=== PATIENT | male | born 1980 | race Caucasian/White ===

== ENCOUNTER 2021-05-04 13:51 | Emergency (ER) | payer OTHER, SELFPAY ==
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
[2021-05-04 14:57] VITALS: BP 156/105; PULSE 89; RESP 16; TEMP 36.7; O2SAT 97; BMI 34.4
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
[2021-05-04] MEDS: Ibuprofen 800 MG TABLET PO (15:36)
== END 2021-05-04 15:45 | disposition home or self-care (01) ==
PROVIDERS: Emergency Provider Internal Medicine
DX: S93.402A Sprain of unspecified ligament of left ankle, initial encounter (principal); V43.52XA Car driver injured in collision with other type car in traffic accident, initial encounter; I10 Essential (primary) hypertension; Y93.89 Activity, other specified; Y92.410 Unspecified street and highway as the place of occurrence of the external cause; Y99.9 Unspecified external cause status; Z91.14 Patient's other noncompliance with medication regimen
CPT/HCPCS: 73610; 99283

== ENCOUNTER 2022-10-23 12:42 | Inpatient (IN) | payer OTHER, SELFPAY ==
--- NOTE | ~2022-10-23 | CT_ITS ---
EXAMINATION: CT Gi Bleed Abd Pel Wo/w Ivcon CLINICAL INFORMATION: Reason for Exam abd pain, gi bleeding . COMPARISON: No pertinent prior studies are available for comparison. TECHNIQUE: Multidetector volumetric imaging was performed from the superior aspect of the liver through the pubic symphysis before and after the administration of 85 mL Omnipaque 350 during his contrast material. Postcontrast images were obtained at a 2 minute delayed phase. Sagittal and coronal reformatted images were obtained on the technologist's workstation. This CT examination was performed using dose optimization techniques as appropriate, variously including the following: *Automated exposure control *Adjustment of mA and/or kV according to patient size (this includes techniques or standardized protocols for targeted exams where dose is matched to indication/reason for exam; i.e. extremities or head) *Use of iterative reconstruction technique DLP: 2327 mGy-cm. FINDINGS: LUNG BASES: Mild pleural parenchymal scarring at the right lung base. No consolidation. LIVER, GALLBLADDER, BILIARY TREE: The liver is enlarged (26 cm craniocaudal) with diffuse hypoattenuation of the parenchyma as well as heterogeneous enhancement and subtle contour nodularity. No focal lesions are identified. No biliary ductal dilatation. The gallbladder is unremarkable with no evidence of radiopaque gallstones, gallbladder wall thickening, or obvious pericholecystic inflammatory changes. PANCREAS: There is mild retroperitoneal fat stranding, though this is not isolated to the pancreas, extending distally into the pelvis. Pancreas is normal in size and attenuation without ductal dilatation or calcification. SPLEEN: Enlarged, measuring 15 cm AP. ADRENAL GLANDS: Normal. KIDNEYS AND URETERS: The kidneys are normal in size, shape, and attenuation. No hydronephrosis, hydroureter, or calculi seen. No perinephric stranding. BLADDER: Thick-walled, though emptying. No calcifications. GASTROINTESTINAL TRACT: A small amount of dense intraluminal material is present within the stomach on the initial noncontrast study which somewhat limits sensitivity of the study for upper GI bleeds. Stomach, small bowel, and colon are normal in caliber. No sites of active GI bleeding identified on these images. There is mild wall thickening at the ascending colon with surrounding fat stranding, potentially due to colitis or portal hypertension colopathy. There is a small volume of intraperitoneal free fluid both in the perihepatic location and within the pelvis. No intraperitoneal free air. ABDOMINAL WALL: No significant hernia is appreciated. LYMPHOVASCULAR STRUCTURES: Multiple prominent, subcentimeter reactive nodes are identified in the upper abdomen, measuring up to 1 cm in diameter, likely reactive in nature. Vasculature appears patent. No evidence of thrombosis. No aneurysmal dilatation.. PELVIC VISCERA: The prostate and seminal vesicles are unremarkable. OSSEOUS STRUCTURES: No acute osseous findings in the abdomen and pelvis. Mild osteoarthritis in the hips. CT/CT gi bleed abd pel wo/w IVcon IMPRESSION: 1. No sites of active gastrointestinal bleeding are identified on this study. 2. Hepatosplenomegaly with hepatic steatosis. Heterogeneous enhancement of the hepatic parenchyma as well as subtle contour nodularity may be due to a degree of steatohepatitis or early cirrhosis. 3. Mild wall thickening at the ascending colon with surrounding fat stranding, potentially due to mild portal hypertension colopathy or colitis. 4. Small volume of intraperitoneal ascites. 5. Retroperitoneal fat stranding in the upper abdomen extending into the pelvis. This is likely related to the ascites and hepatic abnormalities, though pancreatitis cannot be completely excluded. Recommend correlation with serum amylase and lipase which would be more sensitive and specific.
--- NOTE | ~2022-10-23 | US_ITS ---
EXAMINATION: US ABDOMEN LIMITED CLINICAL INFORMATION: Abdominal pain. COMPARISON: Chest CT scan dated 10/23/2022. TECHNIQUE: Real-time imaging of the right upper quadrant abdominal viscera. US/US abdomen limited FINDINGS/IMPRESSION: Trace perihepatic fluid is seen in the right upper quadrant. No other significant free fluid. Hepatic steatosis.
--- NOTE | ~2022-10-23 | CT_ITS ---
EXAMINATION: CT CHEST WITHOUT CONTRAST CLINICAL INFORMATION: Hypoxic COMPARISON: Radiographs from the same date TECHNIQUE: Multidetector volumetric CT imaging of the chest was done. Axial MIP volume rendering provided. Sagittal and coronal reformatted images were obtained. This CT examination was performed using dose optimization techniques as appropriate, variously including the following: *Automated exposure control *Adjustment of mA and/or kV according to patient size (this includes techniques or standardized protocols for targeted exams where dose is matched to indication/reason for exam; i.e. extremities or head) *Use of iterative reconstruction technique DLP: 389 mGy-cm FINDINGS: RN CONCURRENT REVIEW: Clear LUNGS: Foci of linear platelike subsegmental atelectasis or pleural parenchymal scarring are evident in the lower lobes bilaterally. No airspace consolidation. A small calcified granuloma is evident in the right lower lobe near the major fissure. No suspicious pulmonary nodules. Central airways are clear. No bronchiectasis. MEDIASTINUM: Thyroid gland is normal. No mediastinal or hilar adenopathy. Heart is normal in size. No pericardial effusion. CORONARY ARTERY CALCIFICATION: None visualized on this study. PLEURA: There is no pleural effusion. No pleural mass or thickening. AXILLA: No lymphadenopathy. UPPER ABDOMEN: Diffuse hypoattenuation of the hepatic parenchyma is consistent with steatosis. No acute abnormalities are identified in the imaged portion of the upper abdomen. OSSEOUS STRUCTURES: No acute osseous findings. Thoracic spine appears relatively well-preserved. No appreciable rib fractures. CT/CT chest wo IV con IMPRESSION: 1. No acute abnormalities are identified in the chest. 2. Hepatic steatosis. Fleischner guidelines were followed.
--- NOTE | ~2022-10-23 | XR_ITS ---
EXAMINATION: XR CHEST CLINICAL INFORMATION: Shortness of breath COMPARISON: None TECHNIQUE: Frontal view of the chest was obtained. FINDINGS: The lungs are clear with no focal consolidation. No evidence of pneumothorax, pulmonary edema, or pleural effusions. The cardiomediastinal silhouette is unremarkable. No acute osseous findings. XR/XR chest 1V IMPRESSION: No acute cardiopulmonary findings.
[2022-10-23 12:52] VITALS: BP 133/86; PULSE 108; RESP 15; TEMP 36.6; O2SAT 94; BMI 32.2
--- NOTE | 2022-10-23 12:52 | ED_ITS ---
HPI - GI Bleed General Chief complaint: GI Bleed <LIAT Liao Last Filed: 10/23/22 12:55> Stated complaint: blood in stool x14 days <Jewell Schwab NP - Last Filed: 10/23/22 12:55> Time Seen by Provider: 10/23/22 16:27 <Jewell Schwab NP - Last Filed: 10/23/22 12:55> Source: patient <Giovanna Chambers NP - Last Filed: 10/24/22 00:07> Mode of arrival: ambulatory <LIAT Patel Last Filed: 10/24/22 00:07> Limitations: no limitations <LIAT Patel Last Filed: 10/24/22 00:07> History of Present Illness HPI Narrative: 41-year-old male presents with abdominal pain, and 2 weeks of bloody stools. He does drink alcohol on daily basis, has sleep apnea, is morbidly obese, and has a history of cirrhosis. <LIAT Patel Last Filed: 10/24/22 00:07> Onset (ago): week(s) (2) <Giovanna Chambers NP - Last Filed: 10/24/22 00:07> Pain Consistency: intermittent <LIAT Patel Last Filed: 10/24/22 00:07> Severity: moderate <LIAT Patel Last Filed: 10/24/22 00:07> Relieving factors: none <LIAT Patel Last Filed: 10/24/22 00:07> Context: liver disease and alcohol abuse <LIAT Patel Last Filed: 10/24/22 00:07> Associated symptoms: abdominal pain and nausea <LIAT Patel Last Filed: 10/24/22 00:07> Treatments Prior to Arrival: none <LIAT Patel Last Filed: 10/24/22 00:07> Related Data Home medications: Home Medications Medication Instructions Recorded Confirmed albuterol sulfate 90 mcg/actuation 2 puff inhalation Q4-6H PRN 10/23/22 10/23/22 aerosol inhaler (ProAir HFA) Shortness Of Breath amlodipine 5 mg tablet 5 mg PO DAILY 10/23/22 10/23/22 folic acid 1 mg tablet 1 mg PO DAILY 10/23/22 10/23/22 magnesium 250 mg tablet 250 mg PO DAILY 10/23/22 10/23/22 multivitamin 1 tab PO DAILY 10/23/22 10/23/22 <Jewell Schwab NP - Last Filed: 10/23/22 12:55> Allergies/Adverse reactions: Allergies Allergy/AdvReac Type Severity Reaction Status Date / Time No Known Allergies Allergy Verified 05/04/21 14:57 <Jewell Schwab NP - Last Filed: 10/23/22 12:55> Review of Systems Review of Systems: Constitutional: No Fever, No Chills Cardiovascular: No Chest Pain, No SOB Respiratory: No Cough, No Dyspnea Gastrointestinal: Positive Nausea, No Vomiting, positive bloody Diarrhea, pop abdominal Pain Genitourinary: No Dysuria, No Hematuria Musculoskeletal: No joint pain, No Myalgias, No Joint Swelling Skin: No Skin lacerations, No rash Neuro: No Weakness, No Numbness, No Dizziness, No Headache <Giovanna Cahmbers NP - Last Filed: 10/24/22 00:07> Yes all other systems are reviewed and are negative <Giovanna Chambers NP - Last Filed: 10/24/22 00:07> PMFSH Past Medical History Attestation statement: The following information was validated with the patient. <Giovanna Chambers NP - Last Filed: 10/24/22 00:07> Source: old records reviewed <Giovanna Chambers NP - Last Filed: 10/24/22 00:07> Medical History: Medical History Alcohol abuse Asthma HTN (hypertension) <Jewell Schwab NP - Last Filed: 10/23/22 12:55> Surgical History: Surgical History No pertinent past surgical history <Jewell Schwab NP - Last Filed: 10/23/22 12:55> Social History Social History: Social History Alcohol intake: current Alcohol intake frequency: 3 or more drinks per day Alcohol type: beer, wine and hard liquor Patient Tobacco Use Status: Former Tobacco user Smoked in Last 30 Days: No Use of substances other than those prescribed or required for medical reasons: Yes Substance Use Type: Marijuana Advance Directives: No Advance Directives Information Provided: No service: No Current occupational status: employed <Jewell Schwab NP - Last Filed: 10/23/22 12:55> Physical Exam Vital Signs: Vital Signs: Last Vital Signs Temp 98.3 F 10/23/22 20:53 Pulse 103 H 10/23/22 20:53 Resp 14 10/23/22 20:53 BP 123/69 10/23/22 20:53 Pulse Ox 83 L 10/23/22 20:53 O2 Del Method 10/23/22 20:53 BMI result Body Mass Index 32.2 <Jewell Schwab NP - Last Filed: 10/23/22 12:55> Vital Signs: Last Vital Signs Temp 98.3 F 10/23/22 20:53 Pulse 103 H 10/23/22 20:53 Resp 14 10/23/22 20:53 BP 123/69 10/23/22 20:53 Pulse Ox 83 L 10/23/22 20:53 O2 Del Method 10/23/22 20:53 BMI result Body Mass Index 32.2 <Giovanna Chambers NP - Last Filed: 10/24/22 00:07> Appearance: Alert. Oriented X3. Moderate distress. Eyes: Pupils equal, round and reactive to light. Sclera nonicteric. No nystagmus. ENT: Pharynx normal. Neck: Normal inspection. Neck supple. CVS: Normal heart rate and rhythm. Pulses normal. Respiratory: No respiratory distress. Breath sounds normal. Abdomen: Soft and diffusely tender, distended. Skin: Skin warm and dry. Normal skin color. Normal skin turgor. Extremities: Gait balanced and coordinated. Neuro: No motor deficit. No sensory deficit. Cranial nerves 2-12 intact. <Giovanna Chambers NP - Last Filed: 10/24/22 00:07> Course Course Course Narrative: This is rapid medical exam. deferred additional HPI, ROS, PE to primary provider. 41 yo male with history of HTN, asthma here with 2 weeks of BRB per rectum, lower abdominal discomfort. No AC therapy use. +drinks daily alcohol. Will obtain labs. VSS <Jewell Schwab NP - Last Filed: 10/23/22 12:55> This is rapid medical exam. deferred additional HPI, ROS, PE to primary provider. 41 yo male with history of HTN, asthma here with 2 weeks of BRB per rectum, lower abdominal discomfort. No AC therapy use. +drinks daily alcohol. Will obtain labs. VSS 41-year-old male presents with abdominal pain and distention, and intermittent bloody diarrhea over the past 2 weeks. Patient drinks alcohol on a daily basis, and has cirrhosis. Will order CT scan GI study, and labs. CT scan indicates no GI bleeding, wall thickening at the ascending colon with surrounding fat stranding potentially due to colitis or portal hypertensive colopathy. Small volume of intraperitoneal free fluid consistent with ascites. Retroperitoneal fat stranding in the upper abdomen extending into the pelvis, could possibly be pancreatitis or related to hepatic abnormalities and ascites. Order for Zosyn, and fluids. COVID influenza RSV are negative. Troponins are negative. Low likelihood of ACS. 20:00 discussion with hospitalist, plan of care is to admit for alcohol withdrawals, colitis, suspicion of pancreatitis. 20:16 paracentesis completed by this MOLDING ENGINEER. 30 mL of sanguinous peritoneal fluid obtained. Patient tolerated procedure well. <Giovanna Chambers NP - Last Filed: 10/24/22 00:07> Consultations Consultation #1: Emilia <Giovanna Chambers NP - Last Filed: 10/24/22 00:07> Medications Administered Generic Name Dose Route Start Last Admin Trade Name Freq PRN Reason Stop Dose Admin Ceftriaxone Sodium 1 gm/ 50 mls @ 100 mls/hr 10/23/22 21:00 10/23/22 21:51 Sodium Chloride IV Infused Q24H YUMIKO Infusion Metronidazole 500 mg in 100 mls @ 100 mls/hr 10/23/22 22:00 10/23/22 23:16 Flagyl IV Infused Q8H YUMIKO Infusion Lactated Ringer's 1,000 mls @ 125 mls/hr 10/23/22 22:15 10/23/22 23:14 Lr IVCONT 125 mls/hr .Q8H YUMIKO Administration Sodium Chloride 3 ml 10/24/22 00:00 10/23/22 23:16 0.9 % Sodium Chloride Flush 3 Ml Syringe IVFLUSH 3 ml QSHIFT YUMIKO Administration Discontinued Medications Generic Name Dose Route Start Last Admin Trade Name Adrian PRN Reason Stop Dose Admin Hydromorphone HCl 1 mg 10/23/22 19:58 10/23/22 20:26 Hydromorphone Hcl 1 Mg/Ml Syringe IVPUSH 10/23/22 19:59 1 mg ONCE ONE Administration Protocol Piperacillin Sod/Tazobactam 50 mls @ 100 mls/hr 10/23/22 19:58 10/23/22 21:22 Sod 3.375 gm/ Sodium Chloride IV 10/23/22 20:27 Infused ONCE ONE Infusion Iohexol 100 ml 10/23/22 17:34 10/23/22 17:35 Iohexol 350 Mg/Ml 100 Ml Infus..Btl IV 10/23/22 17:35 85 ml ONCE ONE Administration Lidocaine HCl 5 ml 10/23/22 19:58 10/23/22 20:26 Lidocaine Hcl 2 % Mpf 5 Ml Vial SUBCUT 10/23/22 19:59 5 ml ONCE ONE Administration Phenobarbital Sodium 292 mg 10/23/22 21:00 10/23/22 21:14 Phenobarbital Sodium 130 Mg/Ml Im Once IM 10/23/22 21:01 292 mg ONCE ONE Administration <Jewell Schwab NP - Last Filed: 10/23/22 12:55> Medications Administered Generic Name Dose Route Start Last Admin Trade Name Adrian PRN Reason Stop Dose Admin Ceftriaxone Sodium 1 gm/ 50 mls @ 100 mls/hr 10/23/22 21:00 10/23/22 21:51 Sodium Chloride IV Infused Q24H YUMIKO Infusion Metronidazole 500 mg in 100 mls @ 100 mls/hr 10/23/22 22:00 10/23/22 23:16 Flagyl IV Infused Q8H YUMIKO Infusion Lactated Ringer's 1,000 mls @ 125 mls/hr 10/23/22 22:15 10/23/22 23:14 Lr IVCONT 125 mls/hr .Q8H YUMIKO Administration Sodium Chloride 3 ml 10/24/22 00:00 10/23/22 23:16 0.9 % Sodium Chloride Flush 3 Ml Syringe IVFLUSH 3 ml QSHIFT YUMIKO Administration Discontinued Medications Generic Name Dose Route Start Last Admin Trade Name Adrian PRN Reason Stop Dose Admin Hydromorphone HCl 1 mg 10/23/22 19:58 10/23/22 20:26 Hydromorphone Hcl 1 Mg/Ml Syringe IVPUSH 10/23/22 19:59 1 mg ONCE ONE Administration Protocol Piperacillin Sod/Tazobactam 50 mls @ 100 mls/hr 10/23/22 19:58 10/23/22 21:22 Sod 3.375 gm/ Sodium Chloride IV 10/23/22 20:27 Infused ONCE ONE Infusion Iohexol 100 ml 10/23/22 17:34 10/23/22 17:35 Iohexol 350 Mg/Ml 100 Ml Infus..Btl IV 10/23/22 17:35 85 ml ONCE ONE Administration Lidocaine HCl 5 ml 10/23/22 19:58 10/23/22 20:26 Lidocaine Hcl 2 % Mpf 5 Ml Vial SUBCUT 10/23/22 19:59 5 ml ONCE ONE Administration Phenobarbital Sodium 292 mg 10/23/22 21:00 10/23/22 21:14 Phenobarbital Sodium 130 Mg/Ml Im Once IM 10/23/22 21:01 292 mg ONCE ONE Administration <Giovanna Chambers NP - Last Filed: 10/24/22 00:07> Medical Decision Making Differential Diagnosis Differential Diagnoses: The differential diagnosis associated with the presentation includes <Giovanna Chambers NP - Last Filed: 10/24/22 00:07> ETOH withdrawal, SBP, hepatitis, pancreatitis, colitis <Giovanna Chambers NP - Last Filed: 10/24/22 00:07> Admission/Observation Consideration of admission/observation: Escalation of care including admission/observation considered <Giovanna Chambers NP - Last Filed: 10/24/22 00:07> Patient requires admission <LIAT Patel Last Filed: 10/24/22 00:07> Consult Healthcare Provider Management of the patient was discussed with: Hospitalist <Giovanna Chambers NP - Last Filed: 10/24/22 00:07> Lab Data MDM Lab Attestation statement: I reviewed the patient's lab results. <Giovanna Chambers NP - Last Filed: 10/24/22 00:07> Result Diagrams: 10/23/22 13:28 10/23/22 13:28 <Jewell Schwab NP - Last Filed: 10/23/22 12:55> Labs: Lab Results 10/23/22 10/23/22 10/23/22 Range/Units 13:28 13:28 13:28 WBC 11.8 H (4.8-10.8) X10*3/uL RBC 3.44 L (4.60-5.80) X10*6/uL Hgb 13.2 L (14.0-18.0) g/dl Hct 37.8 L (42.0-52.0) % MCV 109.9 H (80.0-98.0) fL MCH 38.4 H (27.0-33.0) pg MCHC 34.9 (31.0-36.0) g/dl RDW 15.0 (11.0-16.0) % Plt Count 157 L (160-400) X10*3/uL MPV 9.2 L (9.4-12.4) fL Immature Gran % (Auto) 0.4 (0.0-0.4) % Neut % (Auto) 75.6 H (45-73) % Lymph % (Auto) 10.6 L (20-40) % [place] % (Auto) 12.4 H (2-11) % Eos % (Auto) 0.3 (0-4) % Baso % (Auto) 0.7 (0-2) % Lymph # (Auto) 1.3 (1.2-4.9) X10*3/uL [place] # (Auto) 1.5 H (0.1-1.2) X10*3/uL Eos # (Auto) 0.0 (0.0-0.4) X10*3/uL Baso # (Auto) 0.1 (0.0-0.2) X10*3/uL Abs Immat Gran (auto) 0.05 H (0.00-0.03) X10*3/uL Absolute Neuts (auto) 8.9 H (2.0-8.3) x10*3/uL Absolute Nucleated RBC 0.000 (0.0-0.012) X10*3/uL Nucleated RBC % (auto) 0.0 (0.0-0.2) /100WBC PT 15.1 H (10.0-13.1) SEC INR 1.3 H (0.9-1.1) Sodium 137 (135-145) mmol/L Potassium 3.3 (3.3-5.1) mmol/L Chloride 99 (96-108) mmol/L Carbon Dioxide 22 (22-29) mmol/L Anion Gap 19 (12-20) BUN 4 L (9-16) mg/dL Creatinine 0.59 (0.5-1.4) mg/dL Estim Creat Clear Calc 197.1 Estimated GFR > 60 Random Glucose 108 (60-115) mg/dL Calcium 7.8 L (8.4-10.2) mg/dL Magnesium (1.6-2.6) mg/dL Total Bilirubin 2.2 H (0.0-1.0) mg/dL Direct Bilirubin 1.2 H (0.0-0.5) mg/dL AST 234 H (5-37) U/L ALT 89 H (0-40) U/L Alkaline Phosphatase 199 H (39-117) U/L Troponin I High Sens (<3.5-35.0) ng/L Total Protein 7.0 (6.5-8.0) g/dL Albumin 3.4 L (3.5-5.0) g/dL Lipase 30 (8-78) U/L Urine Color Urine Appearance Urine pH (5.0-9.0) Ur Specific [place] (1.005-1.025) Urine Protein (Neg-Trace) mg/dL Urine Glucose (UA) (Negative) mg/dL Urine Ketones (Negative) mg/dL Urine Blood (Negative) Urine Nitrite (Negative) Ur Leukocyte Esterase (Negative) Urine RBC (0-2) /HPF Urine WBC (0-5) /HPF Ur Squamous Epith Cells (0-2) /HPF Urine Bacteria (None Seen) Hyaline Casts (0-2) /LPF Urine Opiates Screen (Not Detect) Urine Fentanyl Screen (Not Detect) Ur Barbiturates Screen (Not Detect) Ur Phencyclidine Scrn (Not Detect) Ur Amphetamines Screen (Not Detect) U Benzodiazepines Scrn (Not Detect) Urine Cocaine Screen (Not Detect) U Marijuana (THC) Screen (Not Detect) Ethyl Alcohol mg/dL Influenza Type A (PCR) (Negative) Influenza Type B (PCR) (Negative) RSV RNA Qual (PCR) (Negative) SARS-CoV-2 RNA (RT-PCR) (Negative) 10/23/22 10/23/22 10/23/22 Range/Units 17:00 17:04 17:04 WBC (4.8-10.8) X10*3/uL RBC (4.60-5.80) X10*6/uL Hgb (14.0-18.0) g/dl Hct (42.0-52.0) % MCV (80.0-98.0) fL MCH (27.0-33.0) pg MCHC (31.0-36.0) g/dl RDW (11.0-16.0) % Plt Count (160-400) X10*3/uL MPV (9.4-12.4) fL Immature Gran % (Auto) (0.0-0.4) % Neut % (Auto) (45-73) % Lymph % (Auto) (20-40) % [place] % (Auto) (2-11) % Eos % (Auto) (0-4) % Baso % (Auto) (0-2) % Lymph # (Auto) (1.2-4.9) X10*3/uL [place] # (Auto) (0.1-1.2) X10*3/uL Eos # (Auto) (0.0-0.4) X10*3/uL Baso # (Auto) (0.0-0.2) X10*3/uL Abs Immat Gran (auto) (0.00-0.03) X10*3/uL Absolute Neuts (auto) (2.0-8.3) x10*3/uL Absolute Nucleated RBC (0.0-0.012) X10*3/uL Nucleated RBC % (auto) (0.0-0.2) /100WBC PT (10.0-13.1) SEC INR (0.9-1.1) Sodium (135-145) mmol/L Potassium (3.3-5.1) mmol/L Chloride (96-108) mmol/L Carbon Dioxide (22-29) mmol/L Anion Gap (12-20) BUN (9-16) mg/dL Creatinine (0.5-1.4) mg/dL Estim Creat Clear Calc Estimated GFR Random Glucose (60-115) mg/dL Calcium (8.4-10.2) mg/dL Magnesium 1.7 (1.6-2.6) mg/dL Total Bilirubin (0.0-1.0) mg/dL Direct Bilirubin (0.0-0.5) mg/dL AST (5-37) U/L ALT (0-40) U/L Alkaline Phosphatase (39-117) U/L Troponin I High Sens < 3.5 (<3.5-35.0) ng/L Total Protein (6.5-8.0) g/dL Albumin (3.5-5.0) g/dL Lipase (8-78) U/L Urine Color Urine Appearance Urine pH (5.0-9.0) Ur Specific [place] (1.005-1.025) Urine Protein (Neg-Trace) mg/dL Urine Glucose (UA) (Negative) mg/dL Urine Ketones (Negative) mg/dL Urine Blood (Negative) Urine Nitrite (Negative) Ur Leukocyte Esterase (Negative) Urine RBC (0-2) /HPF Urine WBC (0-5) /HPF Ur Squamous Epith Cells (0-2) /HPF Urine Bacteria (None Seen) Hyaline Casts (0-2) /LPF Urine Opiates Screen (Not Detect) Urine Fentanyl Screen (Not Detect) Ur Barbiturates Screen (Not Detect) Ur Phencyclidine Scrn (Not Detect) Ur Amphetamines Screen (Not Detect) U Benzodiazepines Scrn (Not Detect) Urine Cocaine Screen (Not Detect) U Marijuana (THC) Screen (Not Detect) Ethyl Alcohol mg/dL Influenza Type A (PCR) NEGATIVE (Negative) Influenza Type B (PCR) NEGATIVE (Negative) RSV RNA Qual (PCR) NEGATIVE (Negative) SARS-CoV-2 RNA (RT-PCR) NEGATIVE (Negative) 10/23/22 10/23/22 10/23/22 Range/Units 17:04 17:28 17:28 WBC (4.8-10.8) X10*3/uL RBC (4.60-5.80) X10*6/uL Hgb (14.0-18.0) g/dl Hct (42.0-52.0) % MCV (80.0-98.0) fL MCH (27.0-33.0) pg MCHC (31.0-36.0) g/dl RDW (11.0-16.0) % Plt Count (160-400) X10*3/uL MPV (9.4-12.4) fL Immature Gran % (Auto) (0.0-0.4) % Neut % (Auto) (45-73) % Lymph % (Auto) (20-40) % [place] % (Auto) (2-11) % Eos % (Auto) (0-4) % Baso % (Auto) (0-2) % Lymph # (Auto) (1.2-4.9) X10*3/uL [place] # (Auto) (0.1-1.2) X10*3/uL Eos # (Auto) (0.0-0.4) X10*3/uL Baso # (Auto) (0.0-0.2) X10*3/uL Abs Immat Gran (auto) (0.00-0.03) X10*3/uL Absolute Neuts (auto) (2.0-8.3) x10*3/uL Absolute Nucleated RBC (0.0-0.012) X10*3/uL Nucleated RBC % (auto) (0.0-0.2) /100WBC PT (10.0-13.1) SEC INR (0.9-1.1) Sodium (135-145) mmol/L Potassium (3.3-5.1) mmol/L Chloride (96-108) mmol/L Carbon Dioxide (22-29) mmol/L Anion Gap (12-20) BUN (9-16) mg/dL Creatinine (0.5-1.4) mg/dL Estim Creat Clear Calc Estimated GFR Random Glucose (60-115) mg/dL Calcium (8.4-10.2) mg/dL Magnesium (1.6-2.6) mg/dL Total Bilirubin (0.0-1.0) mg/dL Direct Bilirubin (0.0-0.5) mg/dL AST (5-37) U/L ALT (0-40) U/L Alkaline Phosphatase (39-117) U/L Troponin I High Sens (<3.5-35.0) ng/L Total Protein (6.5-8.0) g/dL Albumin (3.5-5.0) g/dL Lipase (8-78) U/L Urine Color Dark Yellow Urine Appearance Clear Urine pH 6.5 (5.0-9.0) Ur Specific [place] 1.015 (1.005-1.025) Urine Protein Trace (Neg-Trace) mg/dL Urine Glucose (UA) Negative (Negative) mg/dL Urine Ketones Trace (Negative) mg/dL Urine Blood Negative (Negative) Urine Nitrite Negative (Negative) Ur Leukocyte Esterase Trace H (Negative) Urine RBC 0-2 (0-2) /HPF Urine WBC 0-5 (0-5) /HPF Ur Squamous Epith Cells 3-5 (0-2) /HPF Urine Bacteria None Seen (None Seen) Hyaline Casts 0-2 (0-2) /LPF Urine Opiates Screen Not Detected (Not Detect) Urine Fentanyl Screen Not Detected (Not Detect) Ur Barbiturates Screen Not Detected (Not Detect) Ur Phencyclidine Scrn Not Detected (Not Detect) Ur Amphetamines Screen Not Detected (Not Detect) U Benzodiazepines Scrn POSITIVE H (Not Detect) Urine Cocaine Screen Not Detected (Not Detect) U Marijuana (THC) Screen Not Detected (Not Detect) Ethyl Alcohol 260 mg/dL Influenza Type A (PCR) (Negative) Influenza Type B (PCR) (Negative) RSV RNA Qual (PCR) (Negative) SARS-CoV-2 RNA (RT-PCR) (Negative) <Jewell Schwab, MOLDING ENGINEER - Last Filed: 10/23/22 12:55> Lab Results 10/23/22 10/23/22 10/23/22 Range/Units 13:28 13:28 13:28 WBC 11.8 H (4.8-10.8) X10*3/uL RBC 3.44 L (4.60-5.80) X10*6/uL Hgb 13.2 L (14.0-18.0) g/dl Hct 37.8 L (42.0-52.0) % MCV 109.9 H (80.0-98.0) fL MCH 38.4 H (27.0-33.0) pg MCHC 34.9 (31.0-36.0) g/dl RDW 15.0 (11.0-16.0) % Plt Count 157 L (160-400) X10*3/uL MPV 9.2 L (9.4-12.4) fL Immature Gran % (Auto) 0.4 (0.0-0.4) % Neut % (Auto) 75.6 H (45-73) % Lymph % (Auto) 10.6 L (20-40) % [place] % (Auto) 12.4 H (2-11) % Eos % (Auto) 0.3 (0-4) % Baso % (Auto) 0.7 (0-2) % Lymph # (Auto) 1.3 (1.2-4.9) X10*3/uL [place] # (Auto) 1.5 H (0.1-1.2) X10*3/uL Eos # (Auto) 0.0 (0.0-0.4) X10*3/uL Baso # (Auto) 0.1 (0.0-0.2) X10*3/uL Abs Immat Gran (auto) 0.05 H (0.00-0.03) X10*3/uL Absolute Neuts (auto) 8.9 H (2.0-8.3) x10*3/uL Absolute Nucleated RBC 0.000 (0.0-0.012) X10*3/uL Nucleated RBC % (auto) 0.0 (0.0-0.2) /100WBC PT 15.1 H (10.0-13.1) SEC INR 1.3 H (0.9-1.1) Sodium 137 (135-145) mmol/L Potassium 3.3 (3.3-5.1) mmol/L Chloride 99 (96-108) mmol/L Carbon Dioxide 22 (22-29) mmol/L Anion Gap 19 (12-20) BUN 4 L (9-16) mg/dL Creatinine 0.59 (0.5-1.4) mg/dL Estim Creat Clear Calc 197.1 Estimated GFR > 60 Random Glucose 108 (60-115) mg/dL Calcium 7.8 L (8.4-10.2) mg/dL Magnesium (1.6-2.6) mg/dL Total Bilirubin 2.2 H (0.0-1.0) mg/dL Direct Bilirubin 1.2 H (0.0-0.5) mg/dL AST 234 H (5-37) U/L ALT 89 H (0-40) U/L Alkaline Phosphatase 199 H (39-117) U/L Troponin I High Sens (<3.5-35.0) ng/L Total Protein 7.0 (6.5-8.0) g/dL Albumin 3.4 L (3.5-5.0) g/dL Lipase 30 (8-78) U/L Urine Color Urine Appearance Urine pH (5.0-9.0) Ur Specific [place] (1.005-1.025) Urine Protein (Neg-Trace) mg/dL Urine Glucose (UA) (Negative) mg/dL Urine Ketones (Negative) mg/dL Urine Blood (Negative) Urine Nitrite (Negative) Ur Leukocyte Esterase (Negative) Urine RBC (0-2) /HPF Urine WBC (0-5) /HPF Ur Squamous Epith Cells (0-2) /HPF Urine Bacteria (None Seen) Hyaline Casts (0-2) /LPF Urine Opiates Screen (Not Detect) Urine Fentanyl Screen (Not Detect) Ur Barbiturates Screen (Not Detect) Ur Phencyclidine Scrn (Not Detect) Ur Amphetamines Screen (Not Detect) U Benzodiazepines Scrn (Not Detect) Urine Cocaine Screen (Not Detect) U Marijuana (THC) Screen (Not Detect) Ethyl Alcohol mg/dL Influenza Type A (PCR) (Negative) Influenza Type B (PCR) (Negative) RSV RNA Qual (PCR) (Negative) SARS-CoV-2 RNA (RT-PCR) (Negative) 10/23/22 10/23/22 10/23/22 Range/Units 17:00 17:04 17:04 WBC (4.8-10.8) X10*3/uL RBC (4.60-5.80) X10*6/uL Hgb (14.0-18.0) g/dl Hct (42.0-52.0) % MCV (80.0-98.0) fL MCH (27.0-33.0) pg MCHC (31.0-36.0) g/dl RDW (11.0-16.0) % Plt Count (160-400) X10*3/uL MPV (9.4-12.4) fL Immature Gran % (Auto) (0.0-0.4) % Neut % (Auto) (45-73) % Lymph % (Auto) (20-40) % [place] % (Auto) (2-11) % Eos % (Auto) (0-4) % Baso % (Auto) (0-2) % Lymph # (Auto) (1.2-4.9) X10*3/uL [place] # (Auto) (0.1-1.2) X10*3/uL Eos # (Auto) (0.0-0.4) X10*3/uL Baso # (Auto) (0.0-0.2) X10*3/uL Abs Immat Gran (auto) (0.00-0.03) X10*3/uL Absolute Neuts (auto) (2.0-8.3) x10*3/uL Absolute Nucleated RBC (0.0-0.012) X10*3/uL Nucleated RBC % (auto) (0.0-0.2) /100WBC PT (10.0-13.1) SEC INR (0.9-1.1) Sodium (135-145) mmol/L Potassium (3.3-5.1) mmol/L Chloride (96-108) mmol/L Carbon Dioxide (22-29) mmol/L Anion Gap (12-20) BUN (9-16) mg/dL Creatinine (0.5-1.4) mg/dL Estim Creat Clear Calc Estimated GFR Random Glucose (60-115) mg/dL Calcium (8.4-10.2) mg/dL Magnesium 1.7 (1.6-2.6) mg/dL Total Bilirubin (0.0-1.0) mg/dL Direct Bilirubin (0.0-0.5) mg/dL AST (5-37) U/L ALT (0-40) U/L Alkaline Phosphatase (39-117) U/L Troponin I High Sens < 3.5 (<3.5-35.0) ng/L Total Protein (6.5-8.0) g/dL Albumin (3.5-5.0) g/dL Lipase (8-78) U/L Urine Color Urine Appearance Urine pH (5.0-9.0) Ur Specific [place] (1.005-1.025) Urine Protein (Neg-Trace) mg/dL Urine Glucose (UA) (Negative) mg/dL Urine Ketones (Negative) mg/dL Urine Blood (Negative) Urine Nitrite (Negative) Ur Leukocyte Esterase (Negative) Urine RBC (0-2) /HPF Urine WBC (0-5) /HPF Ur Squamous Epith Cells (0-2) /HPF Urine Bacteria (None Seen) Hyaline Casts (0-2) /LPF Urine Opiates Screen (Not Detect) Urine Fentanyl Screen (Not Detect) Ur Barbiturates Screen (Not Detect) Ur Phencyclidine Scrn (Not Detect) Ur Amphetamines Screen (Not Detect) U Benzodiazepines Scrn (Not Detect) Urine Cocaine Screen (Not Detect) U Marijuana (THC) Screen (Not Detect) Ethyl Alcohol mg/dL Influenza Type A (PCR) NEGATIVE (Negative) Influenza Type B (PCR) NEGATIVE (Negative) RSV RNA Qual (PCR) NEGATIVE (Negative) SARS-CoV-2 RNA (RT-PCR) NEGATIVE (Negative) 10/23/22 10/23/22 10/23/22 Range/Units 17:04 17:28 17:28 WBC (4.8-10.8) X10*3/uL RBC (4.60-5.80) X10*6/uL Hgb (14.0-18.0) g/dl Hct (42.0-52.0) % MCV (80.0-98.0) fL MCH (27.0-33.0) pg MCHC (31.0-36.0) g/dl RDW (11.0-16.0) % Plt Count (160-400) X10*3/uL MPV (9.4-12.4) fL Immature Gran % (Auto) (0.0-0.4) % Neut % (Auto) (45-73) % Lymph % (Auto) (20-40) % Hitchcock % (Auto) (2-11) % Eos % (Auto) (0-4) % Baso % (Auto) (0-2) % Lymph # (Auto) (1.2-4.9) X10*3/uL [place] # (Auto) (0.1-1.2) X10*3/uL Eos # (Auto) (0.0-0.4) X10*3/uL Baso # (Auto) (0.0-0.2) X10*3/uL Abs Immat Gran (auto) (0.00-0.03) X10*3/uL Absolute Neuts (auto) (2.0-8.3) x10*3/uL Absolute Nucleated RBC (0.0-0.012) X10*3/uL Nucleated RBC % (auto) (0.0-0.2) /100WBC PT (10.0-13.1) SEC INR (0.9-1.1) Sodium (135-145) mmol/L Potassium (3.3-5.1) mmol/L Chloride (96-108) mmol/L Carbon Dioxide (22-29) mmol/L Anion Gap (12-20) BUN (9-16) mg/dL Creatinine (0.5-1.4) mg/dL Estim Creat Clear Calc Estimated GFR Random Glucose (60-115) mg/dL Calcium (8.4-10.2) mg/dL Magnesium (1.6-2.6) mg/dL Total Bilirubin (0.0-1.0) mg/dL Direct Bilirubin (0.0-0.5) mg/dL AST (5-37) U/L ALT (0-40) U/L Alkaline Phosphatase (39-117) U/L Troponin I High Sens (<3.5-35.0) ng/L Total Protein (6.5-8.0) g/dL Albumin (3.5-5.0) g/dL Lipase (8-78) U/L Urine Color Dark Yellow Urine Appearance Clear Urine pH 6.5 (5.0-9.0) Ur Specific [place] 1.015 (1.005-1.025) Urine Protein Trace (Neg-Trace) mg/dL Urine Glucose (UA) Negative (Negative) mg/dL Urine Ketones Trace (Negative) mg/dL Urine Blood Negative (Negative) Urine Nitrite Negative (Negative) Ur Leukocyte Esterase Trace H (Negative) Urine RBC 0-2 (0-2) /HPF Urine WBC 0-5 (0-5) /HPF Ur Squamous Epith Cells 3-5 (0-2) /HPF Urine Bacteria None Seen (None Seen) Hyaline Casts 0-2 (0-2) /LPF Urine Opiates Screen Not Detected (Not Detect) Urine Fentanyl Screen Not Detected (Not Detect) Ur Barbiturates Screen Not Detected (Not Detect) Ur Phencyclidine Scrn Not Detected (Not Detect) Ur Amphetamines Screen Not Detected (Not Detect) U Benzodiazepines Scrn POSITIVE H (Not Detect) Urine Cocaine Screen Not Detected (Not Detect) U Marijuana (THC) Screen Not Detected (Not Detect) Ethyl Alcohol 260 mg/dL Influenza Type A (PCR) (Negative) Influenza Type B (PCR) (Negative) RSV RNA Qual (PCR) (Negative) SARS-CoV-2 RNA (RT-PCR) (Negative) <Giovanna Chambers NP - Last Filed: 10/24/22 00:07> Independent Interpretation I performed an independent interpretation of an: EKG and CT Scan <Giovanna Chambers NP - Last Filed: 10/24/22 00:07> Interpretation: Sinus tachycardia Otherwise normal ECG No previous ECGs available Vent. rate 102 BPM MS interval 138 ms QRS duration 76 ms QT/QTc 362/471 ms P-R-T axes 71 40 34 23-OCT-2022 16:42:30 <Giovanna Chambers NP - Last Filed: 10/24/22 00:07> Radiology Impression Discussion of test interpretation with radiology: I have reviewed the radiologist's reading. <Giovanna Chambers NP - Last Filed: 10/24/22 00:07> Radiologist Impression: EXAMINATION: CT Gi Bleed Abd Pel Wo/w Ivcon CLINICAL INFORMATION: Reason for Exam abd pain, gi bleeding . COMPARISON: No pertinent prior studies are available for comparison. TECHNIQUE: Multidetector volumetric imaging was performed from the superior aspect of the liver through the pubic symphysis before and after the administration of 85 mL Omnipaque 350 during his contrast material. Postcontrast images were obtained at a 2 minute delayed phase. Sagittal and coronal reformatted images were obtained on the technologist's workstation. This CT examination was performed using dose optimization techniques as appropriate, variously including the following: *Automated exposure control *Adjustment of mA and/or kV according to patient size (this includes techniques or standardized protocols for targeted exams where dose is matched to indication/reason for exam; i.e. extremities or head) *Use of iterative reconstruction technique DLP:? 2327 mGy-cm. FINDINGS: LUNG BASES: Mild pleural parenchymal scarring at the right lung base. No consolidation. LIVER, GALLBLADDER, BILIARY TREE: The liver is enlarged (26 cm craniocaudal) with diffuse hypoattenuation of the parenchyma as well as heterogeneous enhancement and subtle contour nodularity. No focal lesions are identified. No biliary ductal dilatation.? The gallbladder is unremarkable with no evidence of radiopaque gallstones, gallbladder wall thickening, or obvious pericholecystic inflammatory changes. PANCREAS: There is mild retroperitoneal fat stranding, though this is not isolated to the pancreas, extending distally into the pelvis. Pancreas is normal in size and attenuation without ductal dilatation or calcification. SPLEEN: Enlarged, measuring 15 cm AP. ADRENAL GLANDS: Normal. KIDNEYS AND URETERS: The kidneys are normal in size, shape, and attenuation. No hydronephrosis, hydroureter, or calculi seen. No perinephric stranding. BLADDER: Thick-walled, though emptying. No calcifications. GASTROINTESTINAL TRACT: A small amount of dense intraluminal material is present within the stomach on the initial noncontrast study which somewhat limits sensitivity of the study for upper GI bleeds. Stomach, small bowel, and colon are normal in caliber. No sites of active GI bleeding identified on these images. There is mild wall thickening at the ascending colon with surrounding fat stranding, potentially due to colitis or portal hypertension colopathy. There is a small volume of intraperitoneal free fluid both in the perihepatic location and within the pelvis. No intraperitoneal free air. ABDOMINAL WALL: No significant hernia is appreciated. LYMPHOVASCULAR STRUCTURES: Multiple prominent, subcentimeter reactive nodes are identified in the upper abdomen, measuring up to 1 cm in diameter, likely reactive in nature. Vasculature appears patent. No evidence of thrombosis. No aneurysmal dilatation.. PELVIC VISCERA: The prostate and seminal vesicles are unremarkable. OSSEOUS STRUCTURES: No acute osseous findings in the abdomen and pelvis. Mild osteoarthritis in the hips. CT/CT gi bleed abd pel wo/w IVcon IMPRESSION: 1.? No sites of active gastrointestinal bleeding are identified on this study. 2.? Hepatosplenomegaly with hepatic steatosis. Heterogeneous enhancement of the hepatic parenchyma as well as subtle contour nodularity may be due to a degree of steatohepatitis or early cirrhosis. 3.? Mild wall thickening at the ascending colon with surrounding fat stranding, potentially due to mild portal hypertension colopathy or colitis. 4.? Small volume of intraperitoneal ascites. 5.? Retroperitoneal fat stranding in the upper abdomen extending into the pelvis. This is likely related to the ascites and hepatic abnormalities, though pancreatitis cannot be completely excluded. Recommend correlation with serum amylase and lipase which would be more sensitive and specific. ? <LIAT Patel Last Filed: 10/24/22 00:07> External Record Review External record reviewed: Outpatient record and Prior outpatient labs <LIAT Patel Last Filed: 10/24/22 00:07> Social Determinants Patient?s care significantly limited by Social Determinants of Health including: Other Social Determinant of Health <LIAT Patel Last Filed: 10/24/22 00:07> Critical Care Time Critical Care Time Critical Care Time: Yes <LIAT Patel Last Filed: 10/24/22 00:07> Total Critical Care Time: 45 <LIAT Patel Last Filed: 10/24/22 00:07> Attestation: I have personally provided critical care time exclusive of time spent on separately billable procedures. Time includes review of laboratory data, radiology results, discussion with consultants, and monitoring for potential decompensation. Interventions were performed as documented. <LIAT Patel Last Filed: 10/24/22 00:07> Discharge Plan Discharge Clinical Impression: Alcohol withdrawal, Abdominal pain, Colitis, Acute pancreatitis, Ascites <LIAT Liao Last Filed: 10/23/22 12:55> Patient Disposition: Admitted As Inpatient <LIAT Liao Last Filed: 10/23/22 12:55>
[2022-10-23 13:32] LABS: MANUAL DIFF FLAG NO
[2022-10-23 13:36] LABS: Basophils Absolute Auto 0.1 X10*3/uL (0.0-0.2); Basophils Percent Auto 0.7 % (0-2); Eosinophils Percent Auto 0.3 % (0-4); Hematocrit 37.8 % (42.0-52.0); Hemoglobin 13.2 g/dl (14.0-18.0); Imm Gran Abs Auto 0.05 X10*3/uL (0.00-0.03); Imm Gran Pct Auto 0.4 % (0.0-0.4); Lymphocytes Absolute Auto 1.3 X10*3/uL (1.2-4.9); Lymphocytes Percent Auto 10.6 % (20-40); Mean Corpuscular HGB Conc 34.9 g/dl (31.0-36.0); Mean Corpuscular Hemoglobin 38.4 pg (27.0-33.0); Mean Corpuscular Volume 109.9 fL (80.0-98.0); Mean Platelet Volume 9.2 fL (9.4-12.4); Monocytes Absolute Auto 1.5 X10*3/uL (0.1-1.2); Monocytes Percent Auto 12.4 % (2-11); Neutrophils Absolute Auto 8.9 x10*3/uL (2.0-8.3); Neutrophils Percent Auto 75.6 % (45-73); Platelet Count 157 X10*3/uL (160-400); Red Blood Count 3.44 X10*6/uL (4.60-5.80); White Blood Count 11.8 X10*3/uL (4.8-10.8)
[2022-10-23 13:42] LABS: INTERNATIONAL NORM RATIO 1.3 (0.9-1.1); Prothrombin Time 15.1 SEC (10.0-13.1)
[2022-10-23 13:54] LABS: Alanine Aminotransferase 89 U/L (0-40); Albumin Level 3.4 g/dL (3.5-5.0); Alkaline Phosphatase 199 U/L (39-117); Anion Gap 19 (12-20); Aspartate Amino Transferase 234 U/L (5-37); Bilirubin Direct 1.2 mg/dL (0.0-0.5); Bilirubin Total 2.2 mg/dL (0.0-1.0); Blood Urea Nitrogen 4 mg/dL (9-16); Calcium 7.8 mg/dL (8.4-10.2); Carbon Dioxide 22 mmol/L (22-29); Chloride 99 mmol/L (96-108); Creatinine Clr Calc Pharmacy 197.1; Estimated Glomerular Filt Rate > 60; Glucose Random 108 mg/dL (60-115); Potassium 3.3 mmol/L (3.3-5.1); Sodium 137 mmol/L (135-145)
--- NOTE | 2022-10-23 16:29 | ECG_ITS ---
Test Reason : GI Bleed Blood Pressure : / mmHG Vent. Rate : 102 BPM Atrial Rate : 102 BPM P-R Int : 138 ms QRS Dur : 076 ms QT Int : 362 ms P-R-T Axes : 071 040 034 degrees QTc Int : 471 ms Sinus tachycardia Otherwise normal ECG No previous ECGs available Referred By: Giovanna Chambers Electronically Signed By:NIKI GUTIÉRREZ MD
[2022-10-23 16:44] LABS: Lipase 30 U/L (8-78)
[2022-10-23 16:51] VITALS: BP 130/77; PULSE 101; RESP 18; TEMP 37.1; O2SAT 92
[2022-10-23 17:26] LABS: Ethanol 260 mg/dL
[2022-10-23 17:28] LABS: Magnesium 1.7 mg/dL (1.6-2.6)
[2022-10-23 17:35] LABS: Troponin-I High Sensitivity < 3.5 ng/L (<3.5-35.0)
[2022-10-23] MEDS: iohexoL 350 MG/ML 100 ML INFUS..BTL IV (17:35)
[2022-10-23 17:38] LABS: Appearance Urine Clear; Color Urine Dark Yellow; Glucose Urine UA Negative (Negative); Leukocyte Esterase Urine Trace (Negative); Nitrite Urine Negative (Negative); PH 6.5 (5.0-9.0); Specific Gravity - Urine 1.015 (1.005-1.025); UMIC TRIGGER UACC YES; Urine Blood Negative (Negative); Urine Ketones Trace mg/dL (Negative); Urine Protein Trace mg/dL (Neg-Trace)
[2022-10-23 17:44] LABS: Amphetamine Screen Urine Not Detected (Not Detect); Barbiturates, Urine Not Detected (Not Detect); Benzodiazepines Screen Urine POSITIVE (Not Detect); Cannabinoid Screen Urine Not Detected (Not Detect); Cocaine Screen Urine Not Detected (Not Detect); Fentanyl, urine Not Detected (Not Detect); Opiate Screen Urine Not Detected (Not Detect); Phencyclidine Screen Urine Not Detected (Not Detect)
[2022-10-23 17:45] LABS: Influenza A PCR NEGATIVE (Negative); Influenza B PCR NEGATIVE (Negative); Resp Syncy Virus RNA Qual PCR NEGATIVE (Negative); SARS COV2 PCR INHOUSE NEGATIVE (Negative)
[2022-10-23 17:51] LABS: Bacteria Urine None Seen (None Seen); Hyaline Casts Urine 0-2 /LPF (0-2); RBC Urine 0-2 /HPF (0-2); WBC Urine 0-5 /HPF (0-5)
[2022-10-23] MEDS: HYDROmorphone HCl 1 MG/ML SYRINGE IVPUSH (20:26)
[2022-10-23] MEDS: Lidocaine HCl 2 % MPF 5 ML VIAL SUBCUT (20:26)
[2022-10-23] MEDS: Piperacillin Sodium/Tazobactam 3.375 GM in 0.9 % Sodium Chloride 50 ML IV (20:27)
--- NOTE | 2022-10-23 20:44 | PM.IMHP ---
History of Present Illness Date of Service: 10/23/22 Chief Complaint: Abd pain 1-year-old male with past medical history of alcohol abuse, asthma, hypertension presents to the hospital with complaints of abdominal pain as well as GI bleed. Patient reports that he started having consistent bright red blood per rectum with every bowel movement for the past 2 weeks, stopped about 2 days ago then subsequently developed abdominal pain in the lower abdomen bilaterally about 4 days ago. Patient reports the pain was intermittent but has been constant today, the pain is 7/10, nonradiating, no relieving or exacerbating factors. Patient denies any nausea or vomiting, reports diarrhea. Who reports daily drinking since the age of 18. last drink was this morning. He is experiencing withdrawal symptoms. Patient reports abdominal distension, denies any shortness of breath, no cough, no palpitations or chest pain. No urinary symptoms and no lower extremity edema. On arrival to the ED patient found to have a heart rate of 108, satting 94% on room air, but did drop to 83% while in the ED Labs are significant for WBC count of 11.8, hemoglobin of 13.2, hematocrit 37.8, PT of 15.1, INR of 1.3, calcium 7.8, total bili of 2.2, AST of 234, ALT of 89, alk-phos of 199, troponin less than 3.5, albumin of 3.4, UA shows trace leukocyte Estrace with no WBC, BNP of [address] shows no sites of active gastrointestinal bleeding, hepatosplenomegaly with hepatic steatosis, heterogeneous enhancement of the hepatic parenchyma as well as subtle contour nodularity shows early cirrhosis, mild wall thickening at the ascending colon with surrounding fat stranding potentially due to mild portal hypertension or colitis, small intraperitoneal ascites, retroperitoneal fat stranding in the upper abdomen extending into the pelvis, likely related to the ascites and hepatic abnormalities, though pancreatitis cannot be completely excluded. Chest x-ray is negative Review of Systems Review of Systems: Yes all other systems are reviewed and are negative [facility] Medical History Alcohol abuse Asthma HTN (hypertension) Surgical History No pertinent past surgical history Social History Alcohol intake: current Alcohol intake frequency: 3 or more drinks per day Alcohol type: beer, wine and hard liquor Smoked in Last 30 Days: No Use of substances other than those prescribed or required for medical reasons: Yes Substance Use Type: Marijuana Advance Directives: No Advance Directives Information Provided: No service: No Current occupational status: employed Meds Allergies Allergy/AdvReac Type Severity Reaction Status Date / Time No Known Allergies Allergy Verified 05/04/21 14:57 Active Medications: Current Medications Folic Acid (Folic Acid 1 Mg Tablet) 1 mg PO DAILY [facility] Ceftriaxone Sodium 1 gm/ (Sodium Chloride) 50 mls @ 100 mls/hr IV Q24H [facility] Metronidazole (Flagyl) 500 mg in 100 mls @ 100 mls/hr IV Q8H [facility] Morphine Sulfate (Morphine Sulfate 4 Mg/Ml Cartridge) 4 mg IVPUSH Q4H PRN; Protocol PRN Reason: Pain, Severe (Pain Scale 7-10) Ondansetron HCl (Ondansetron Hcl 4 Mg/2 Ml Vial) 4 mg IVPUSH Q8H PRN PRN Reason: Nausea and Vomiting Pharmacy Consult (Consult Rx Etoh Phenob Im/Po) 1 each MISCELLANE ONCE PRN; Protocol PRN Reason: Consult order Sodium Chloride (0.9 % Sodium Chloride Flush 3 Ml Syringe) 3 ml IVFLUSH QSHIFT [facility] Thiamine HCl (Thiamine Hcl 100 Mg Tablet) 100 mg PO DAILY [facility] Home Medications Medication Instructions Recorded Confirmed Last Taken Type albuterol sulfate 90 mcg/actuation 2 puff inhalation Q4-6H PRN 10/23/22 10/23/22 Unknown History aerosol inhaler (ProAir HFA) Shortness Of Breath amlodipine 5 mg tablet 5 mg PO DAILY 10/23/22 10/23/22 Unknown History folic acid 1 mg tablet 1 mg PO DAILY 10/23/22 10/23/22 Unknown History magnesium 250 mg tablet 250 mg PO DAILY 10/23/22 10/23/22 Unknown History multivitamin 1 tab PO DAILY 10/23/22 10/23/22 Unknown History Physical Exam Vital Signs and Narrative: Vital Signs: Last Vital Signs Temp 98.8 F 10/23/22 16:51 Pulse 101 H 10/23/22 16:51 Resp 18 10/23/22 16:51 BP 130/77 10/23/22 16:51 Pulse Ox 92 10/23/22 16:51 O2 Del Method 10/23/22 16:51 BMI result Body Mass Index 32.2 Const: General: cooperative and no acute distress Eyes: General: appearance normal, both eyes and all related structures Pupils: Equal, round and reactive pupils present Resp: Effort & Inspection: normal respiratory effort Auscultation: clear to auscultation bilaterally Cardio: Rate: regular rate Rhythm: regular rhythm GI: Other: Distended abdomen, tender in the low right lower quadrant No rebound, no guarding, no epigastric tenderness Palpation (GI): Soft to palpation Skin: General skin exam: no rashes or lesions noted Neuro: Cranial nerves: Yes Equal, round and reactive pupils present Extrem: General: Yes normal to inspection and Yes no pedal edema Results Labs 10/23/22 13:28 10/23/22 13:28 Labs: Laboratory Results - last 24 hr 10/23/22 10/23/22 10/23/22 13:28 13:28 13:28 MCV 109.9 H MCH 38.4 H MCHC 34.9 RDW 15.0 Plt Count 157 L MPV 9.2 L Immature Gran % (Auto) 0.4 Neut % (Auto) 75.6 H Lymph % (Auto) 10.6 L [place] % (Auto) 12.4 H Eos % (Auto) 0.3 Baso % (Auto) 0.7 Lymph # (Auto) 1.3 [place] # (Auto) 1.5 H Eos # (Auto) 0.0 Baso # (Auto) 0.1 Abs Immat Gran (auto) 0.05 H Absolute Neuts (auto) 8.9 H Absolute Nucleated RBC 0.000 Nucleated RBC % (auto) 0.0 PT 15.1 H INR 1.3 H Anion Gap 19 Estim Creat Clear Calc 197.1 Estimated GFR > 60 Random Glucose 108 Calcium 7.8 L Magnesium Total Bilirubin 2.2 H Direct Bilirubin 1.2 H AST 234 H ALT 89 H Alkaline Phosphatase 199 H Troponin I High Sens Total Protein 7.0 Albumin 3.4 L Lipase 30 Urine Color Urine Appearance Urine pH Ur Specific [place] Urine Protein Urine Glucose (UA) Urine Ketones Urine Blood Urine Nitrite Ur Leukocyte Esterase Urine RBC Urine WBC Ur Squamous Epith Cells Urine Bacteria Hyaline Casts Urine Opiates Screen Urine Fentanyl Screen Ur Barbiturates Screen Ur Phencyclidine Scrn Ur Amphetamines Screen U Benzodiazepines Scrn Urine Cocaine Screen U Marijuana (THC) Screen Ethyl Alcohol Influenza Type A (PCR) Influenza Type B (PCR) RSV RNA Qual (PCR) SARS-CoV-2 RNA (RT-PCR) 10/23/22 10/23/22 10/23/22 17:00 17:04 17:04 MCV MCH MCHC RDW Plt Count MPV Immature Gran % (Auto) Neut % (Auto) Lymph % (Auto) [place] % (Auto) Eos % (Auto) Baso % (Auto) Lymph # (Auto) [place] # (Auto) Eos # (Auto) Baso # (Auto) Abs Immat Gran (auto) Absolute Neuts (auto) Absolute Nucleated RBC Nucleated RBC % (auto) PT INR Anion Gap Estim Creat Clear Calc Estimated GFR Random Glucose Calcium Magnesium 1.7 Total Bilirubin Direct Bilirubin AST ALT Alkaline Phosphatase Troponin I High Sens < 3.5 Total Protein Albumin Lipase Urine Color Urine Appearance Urine pH Ur Specific Blossom Urine Protein Urine Glucose (UA) Urine Ketones Urine Blood Urine Nitrite Ur Leukocyte Esterase Urine RBC Urine WBC Ur Squamous Epith Cells Urine Bacteria Hyaline Casts Urine Opiates Screen Urine Fentanyl Screen Ur Barbiturates Screen Ur Phencyclidine Scrn Ur Amphetamines Screen U Benzodiazepines Scrn Urine Cocaine Screen U Marijuana (THC) Screen Ethyl Alcohol Influenza Type A (PCR) NEGATIVE Influenza Type B (PCR) NEGATIVE RSV RNA Qual (PCR) NEGATIVE SARS-CoV-2 RNA (RT-PCR) NEGATIVE 10/23/22 10/23/22 10/23/22 17:04 17:28 17:28 MCV MCH MCHC RDW Plt Count MPV Immature Gran % (Auto) Neut % (Auto) Lymph % (Auto) [place] % (Auto) Eos % (Auto) Baso % (Auto) Lymph # (Auto) [place] # (Auto) Eos # (Auto) Baso # (Auto) Abs Immat Gran (auto) Absolute Neuts (auto) Absolute Nucleated RBC Nucleated RBC % (auto) PT INR Anion Gap Estim Creat Clear Calc Estimated GFR Random Glucose Calcium Magnesium Total Bilirubin Direct Bilirubin AST ALT Alkaline Phosphatase Troponin I High Sens Total Protein Albumin Lipase Urine Color Dark Yellow Urine Appearance Clear Urine pH 6.5 Ur Specific Blossom 1.015 Urine Protein Trace Urine Glucose (UA) Negative Urine Ketones Trace Urine Blood Negative Urine Nitrite Negative Ur Leukocyte Esterase Trace H Urine RBC 0-2 Urine WBC 0-5 Ur Squamous Epith Cells 3-5 Urine Bacteria None Seen Hyaline Casts 0-2 Urine Opiates Screen Not Detected Urine Fentanyl Screen Not Detected Ur Barbiturates Screen Not Detected Ur Phencyclidine Scrn Not Detected Ur Amphetamines Screen Not Detected U Benzodiazepines Scrn POSITIVE H Urine Cocaine Screen Not Detected U Marijuana (THC) Screen Not Detected Ethyl Alcohol 260 Influenza Type A (PCR) Influenza Type B (PCR) RSV RNA Qual (PCR) SARS-CoV-2 RNA (RT-PCR) Imaging Radiologist's Impressions: Impressions Abdomen/Pelvis CT 10/23/22 17:43 IMPRESSION: 1. No sites of active gastrointestinal bleeding are identified on this study. 2. Hepatosplenomegaly with hepatic steatosis. Heterogeneous enhancement of the hepatic parenchyma as well as subtle contour nodularity may be due to a degree of steatohepatitis or early cirrhosis. 3. Mild wall thickening at the ascending colon with surrounding fat stranding, potentially due to mild portal hypertension colopathy or colitis. 4. Small volume of intraperitoneal ascites. 5. Retroperitoneal fat stranding in the upper abdomen extending into the pelvis. This is likely related to the ascites and hepatic abnormalities, though pancreatitis cannot be completely excluded. Recommend correlation with serum amylase and lipase which would be more sensitive and specific. Assessment and Plan (1) Alcohol withdrawal: Status: Acute (2) Abdominal pain: Status: Acute (3) Colitis: Status: Acute (4) GI bleed: Status: Acute (5) Transaminitis: Status: Acute (6) Acute respiratory failure with hypoxia: Status: Acute Plan This is a 41-year-old male with past medical history of alcohol abuse, hypertension, asthma presents to the hospital with complaints of abdominal pain as well as GI bleed found to have a following # alcohol withdrawal - patient with history of alcohol abuse, and evidence of liver cirrhosis - will treat with phenobarb protocol - thiamine and folic acid supplement - monitor for withdrawal symptoms # abdominal pain - likely secondary to acute colitis - unlikely to be pancreatitis, amylase and lipase negative, no characteristic epigastric tenderness, patient has evidence of inflammation in the retroperitoneal region likely secondary to ascites, less likely to be secondary to acute pancreatitis - pain control # acute colitis - has evidence of acute colitis on CT of the abdomen - will treat with IV antibiotics - follow cultures # GI bleed/red bright blood per rectum - possibly lower GI in the setting of colitis - hemoglobin stable - will keep NPO - GI consulted - IV fluids # transaminitis - likely secondary to early cirrhosis - patient drinks daily and has evidence of cirrhosis on the CT abdomen - has small amount of ascites - diagnostic paracentesis obtained in the ED, less likely to be SBP - will follow CMP - at this time does not meet criteria for acute alcoholic hepatitis - will obtain autoimmune markers, hepatitis panel including hepatitis AB and C - follow-up above test - follow LFTs # acute hypoxic respiratory failure - unclear etiology at this time, BNP negative - chest x-ray negative - given the level of hypoxia will obtain chest CT - at this time will monitor on oxygen #asthma - denies exacerbation - continue p.r.n. DuoNeb # hypertension - stable - continue antihypertensives DVT prophylaxis: Early ambulation, SCDs Given patient's acute alcohol withdrawal, as well as the colitis and need for evaluation for acute GI bleed patient will require minimum2 nights inpatient hospital stay for further management and monitoring Time Spent With Patient Time: Total time managing care of this patient today ____ minutes. Quality Stroke Does the patient have a stroke diagnosis?: No VTE Prior VTE?: No VTE Risk Level:: Medical - moderate - high VTE Device Contraindication: N/A - Device Ordered VTE Drug Contraindication: Treatment Not Indicated
[2022-10-23 20:53] VITALS: BP 123/69; PULSE 103; RESP 14; TEMP 36.8; O2SAT 83
--- NOTE | 2022-10-23 20:57 | PHA.MEDREC ---
Pharmacy Consult ? Medication Reconciliation Pharmacy has completed the medication reconciliation.
--- NOTE | 2022-10-23 21:00 | MHC.EDTECH ---
Vital Check O2 down to 83 - RN Aware, Monitoring O2
[2022-10-23] MEDS: cefTRIAXone sodium 1 GM in 0.9 % Sodium Chloride 50 ML IV (21:11)
[2022-10-23] MEDS: PHENobarbitaL sodium 130 MG/ML IM ONCE 292 MG IM (21:14)
[2022-10-23 21:35] LABS: Ammonia 45 umol/L (13-55)
[2022-10-23 21:35] LABS: Amylase 37 U/L (28-100)
[2022-10-23 21:49] LABS: B Type Natriuretic Peptide 56 pg/mL (<100)
[2022-10-23 22:10] LABS: Monocytes Peritoneal Fl 50 %; Neutrophils Peritoneal Fluid 50 %
[2022-10-23] MEDS: metroNIDAZOLE/NS 500 MG/100 ML PIGGYBACK 100 MG IV (22:14)
--- NOTE | 2022-10-23 22:44 | MHC.CM.ED ---
CM met with admitted patient with bed assignment pending. A&Ox4. Independent. Employed. Lives w father. HX alcohol misuse.No DME/services. Pfizer x2. No booster. No PCP. No HCP. Reviewed, completed and signed. Copies given. Uploaded into [employer] and [facility] prollie. HCP/father Jeremias Vann ([phone]). No primary contact listed on face sheet. Pt declines to provide contact. D/C plan: home without services. Pt will self-transport. Can arrange transport if necessary. CM to follow for any discharge needs.
[2022-10-23] MEDS: Lactated Ringers 1,000 ML 125 ML IVCONT (23:14)
[2022-10-23] MEDS: 0.9 % Sodium Chloride Flush 3 ML SYRINGE IVFLUSH (23:16)
[2022-10-23 23:57] VITALS: BP 115/65; PULSE 101; RESP 14; TEMP 36.6; O2SAT 98
[2022-10-24] VITALS (8 sets, daily range): BP systolic 109–150; BP diastolic 58–98; PULSE 95–108; RESP 14–20; TEMP 36.8–37.4; O2SAT 90–98; BMI 34.4; BMI 33.0
--- NOTE | 2022-10-24 00:07 | PC.NURSE ---
Attempted to call report to [facility] at 00:07. US said she will call back down.
[2022-10-24] MEDS: PHENobarbitaL sodium 130 MG/ML VIAL IM Q3Hx2 219 MG IM ×2 (01:16→04:08)
[2022-10-24 04:08] LABS: pH Peritoneal Fluid 7.82
[2022-10-24 05:31] LABS: Albumin Peritoneal Fluid 1.4 GM/DL; Glucose Peritoneal Fluid 104 MG/DL; LDH Peritoneal Fluid 192 U/L; Total Protein Peritoneal Fluid 2.8 GM/DL
[2022-10-24] MEDS: metroNIDAZOLE/NS 500 MG/100 ML PIGGYBACK 100 MG IV ×3 (06:09→22:20)
[2022-10-24] MEDS: Lactated Ringers 1,000 ML 125 ML IVCONT ×2 (06:11→17:23)
[2022-10-24 06:40] LABS: MANUAL DIFF FLAG NO
[2022-10-24 06:56] LABS: Basophils Absolute Auto 0.1 X10*3/uL (0.0-0.2); Basophils Percent Auto 0.7 % (0-2); Eosinophils Absolute Auto 0.1 X10*3/uL (0.0-0.4); Eosinophils Percent Auto 0.6 % (0-4); Hematocrit 35.5 % (42.0-52.0); Hemoglobin 12.2 g/dl (14.0-18.0); Imm Gran Abs Auto 0.03 X10*3/uL (0.00-0.03); Imm Gran Pct Auto 0.3 % (0.0-0.4); Lymphocytes Absolute Auto 0.9 X10*3/uL (1.2-4.9); Lymphocytes Percent Auto 9.5 % (20-40); Mean Corpuscular HGB Conc 34.4 g/dl (31.0-36.0); Mean Corpuscular Hemoglobin 38.2 pg (27.0-33.0); Mean Platelet Volume 10.1 fL (9.4-12.4); Monocytes Absolute Auto 1.3 X10*3/uL (0.1-1.2); Monocytes Percent Auto 14.3 % (2-11); Neutrophils Absolute Auto 6.7 x10*3/uL (2.0-8.3); Neutrophils Percent Auto 74.6 % (45-73); Platelet Count 144 X10*3/uL (160-400); Red Blood Count 3.19 X10*6/uL (4.60-5.80)
[2022-10-24 07:17] LABS: Mean Corpuscular Volume 111.3 fL (80.0-98.0)
[2022-10-24 07:43] LABS: Blood Urea Nitrogen 5 mg/dL (9-16); Calcium 7.7 mg/dL (8.4-10.2); Creatinine Clr Calc Pharmacy 210.7; Estimated Glomerular Filt Rate > 60; Glucose Random 93 mg/dL (60-115)
[2022-10-24] MEDS: Multivitamin TABLET 1 TAB PO (09:02)
[2022-10-24] MEDS: Folic Acid 1 MG TABLET PO (09:02)
[2022-10-24] MEDS: PHENobarbitaL 15 MG TABLET 45 MG PO ×2 (09:02→21:38)
[2022-10-24] MEDS: amLODIPine Besylate 5 MG TABLET PO (09:02)
[2022-10-24] MEDS: Thiamine HCL 100 MG TABLET PO (09:02)
[2022-10-24] MEDS: Magnesium Oxide 400 MG TABLET 200 MG PO (09:03)
--- NOTE | 2022-10-24 13:43 | P.CNGI_ITS ---
History of Present Illness Data of Consult Service Date: 10/24/22 Requesting physician: David Nieto Primary Care Provider: None Physician HPI Reason for consult: Abd pain This is a 41-year-old gentleman with past medical history of alcohol use disorder that has led to chronic liver disease, asthma, hypertension who presented to the hospital for abdominal pain and intermittent bright red rectal bleeding. History was obtained from the patient who states that 2 weeks ago he started not icing intermittent rectal bleeding specially on wiping after a bowel movement. The bleeding was painless initially and BMs were formed. Then 3 days ago, he also started developing lower abdominal pain with cramping and this was associated diarrhea with mucoid blood in it. No nausea, vomiting, fevers, chills. Has been able to tolerate p.o. Does have extensive history of alcohol use, drinks 20 drinks of vodka every day. Reports a previous endoscopy done at [facility] for chest pain and palpitations . No report of varicose veins or portal hypertension at that time per his recall. Has never had a colonoscopy. In the emergency room on initial presentation, he was noted to be tachycardic but normotensive. Labs were significant for hemoglobin of 12.2, baseline unknown. He was also noted to have thrombocytopenia. LFTs with AST greater than ALT with bilirubin of 2.2. Albumin is 3.4. He initial alcohol level was 260. He had a diagnostic paracentesis sent out, unfortunately this apple clotted and therefore total WBC count is unknown. Sag suggestive of portal hypertension. Hepatitis serologies are pending. He had a CT abdomen and pelvis that was personally reviewed. It does show dense material in his stomach and 1st portion the duodenum. Also shows ascending colon with surrounding fat stranding as well as small volume of ascites. Review of Systems Review of Systems: Yes all other systems are reviewed and are negative PMFSH Past Medical History Medical History Alcohol abuse Asthma HTN (hypertension) Surgical History Surgical History No pertinent past surgical history Social History Social History Household Members: Family Housing: House Do you presently have visiting nurse or other home services: No Alcohol intake: current Alcohol intake frequency: other Alcohol type: beer, wine and hard liquor Patient Tobacco Use Status: Former Tobacco user Quit Date: decades ago Substance Use Type: Marijuana service: No Current occupational status: employed Meds Allergies Allergy/AdvReac Type Severity Reaction Status Date / Time No Known Allergies Allergy Verified 05/04/21 14:57 Active Medications: Current Medications Albuterol Sulfate (Albuterol Sulfate 90 Mcg 8 Gm Inhaler) 2 puff INHALE Q4H PRN PRN Reason: Shortness Of Breath Amlodipine Besylate (Amlodipine Besylate 5 Mg Tablet) 5 mg PO DAILY [facility]; Protocol Last Admin: 10/24/22 09:02 Dose: 5 mg Folic Acid (Folic Acid 1 Mg Tablet) 1 mg PO DAILY [facility] Last Admin: 10/24/22 09:02 Dose: 1 mg Ceftriaxone Sodium 1 gm/ (Sodium Chloride) 50 mls @ 100 mls/hr IV Q24H [facility] Last Infusion: 10/23/22 21:51 Dose: Infused Metronidazole (Flagyl) 500 mg in 100 mls @ 100 mls/hr IV Q8H [facility] Last Admin: 10/24/22 12:42 Dose: 100 mls/hr Lactated Ringer's (Lr) 1,000 mls @ 125 mls/hr IVCONT .Q8H [facility] Last Admin: 10/24/22 06:11 Dose: 125 mls/hr Magnesium Oxide (Magnesium Oxide 400 Mg Tablet) 200 mg PO DAILY [facility] Last Admin: 10/24/22 09:03 Dose: 200 mg Morphine Sulfate (Morphine Sulfate 4 Mg/Ml Cartridge) 4 mg IVPUSH Q4H PRN; Protocol PRN Reason: Pain, Severe (Pain Scale 7-10) Multivitamins/Vitamin C (Multivitamin Tablet) 1 tab PO DAILY [facility] Last Admin: 10/24/22 09:02 Dose: 1 tab Ondansetron HCl (Ondansetron Hcl 4 Mg/2 Ml Vial) 4 mg IVPUSH Q8H PRN PRN Reason: Nausea and Vomiting Pharmacy Consult (Consult Rx Etoh Phenob Im/Po) 1 each MISCELLANE ONCE PRN; Protocol PRN Reason: Consult order Phenobarbital (Phenobarbital 15 Mg Tablet) 45 mg PO BID [facility] Stop: 10/25/22 21:01 Last Admin: 10/24/22 09:02 Dose: 45 mg Phenobarbital (Phenobarbital 30 Mg Tablet) 30 mg PO BID [facility] Stop: 10/27/22 21:01 Phenobarbital (Phenobarbital 15 Mg Tablet) 15 mg PO DAILY [facility] Stop: 10/29/22 09:01 Sodium Chloride (0.9 % Sodium Chloride Flush 3 Ml Syringe) 3 ml IVFLUSH QSHIFT [facility] Last Admin: 10/24/22 09:02 Dose: Not Given Thiamine HCl (Thiamine Hcl 100 Mg Tablet) 100 mg PO DAILY [facility] Last Admin: 10/24/22 09:02 Dose: 100 mg Home Medications Medication Instructions Recorded Confirmed Last Taken Type albuterol sulfate 90 mcg/actuation 2 puff inhalation Q4-6H PRN 10/23/22 10/23/22 Unknown History aerosol inhaler (ProAir HFA) Shortness Of Breath amlodipine 5 mg tablet 5 mg PO DAILY 10/23/22 10/23/22 Unknown History folic acid 1 mg tablet 1 mg PO DAILY 10/23/22 10/23/22 Unknown History magnesium 250 mg tablet 250 mg PO DAILY 10/23/22 10/23/22 Unknown History multivitamin 1 tab PO DAILY 10/23/22 10/23/22 Unknown History Physical Exam Vital Signs: Vital Signs: Last Vital Signs Temp 99.1 F 10/24/22 12:00 Pulse 99 10/24/22 12:00 Resp 20 10/24/22 12:00 BP 129/59 L 10/24/22 12:00 Pulse Ox 93 10/24/22 12:00 O2 Del Method 10/24/22 12:00 O2 Flow Rate 2 10/24/22 12:00 BMI result Body Mass Index 34.4 Gen appear: Nontoxic appearing HEENT: MIld icterus appreciated. No cervical lymphadenopathy Chest: No overt resp distress CVS: S1/S2, regular Abd: soft, nontender, distended, palpable liver edge Psych: Stable affect, answering questions appropriately Neuro: A/Ox3 noted to move all extremities spontaneously, mild tremors Ext: no peripheral edema Results Labs 10/24/22 05:53 10/24/22 05:53 Labs: Short CBC 10/24/22 Range/Units 05:53 WBC 9.0 (4.8-10.8) X10*3/uL Hgb 12.2 L (14.0-18.0) g/dl Hct 35.5 L (42.0-52.0) % Plt Count 144 L (160-400) X10*3/uL BMP 10/23/22 10/24/22 13:28 05:53 Sodium 137 140 Potassium 3.3 3.4 Chloride 99 101 Carbon Dioxide 22 25 BUN 4 L 5 L Creatinine 0.59 0.57 Calcium 7.8 L 7.7 L Liver Function 10/23/22 Range/Units 13:28 Total Bilirubin 2.2 H (0.0-1.0) mg/dL Direct Bilirubin 1.2 H (0.0-0.5) mg/dL AST 234 H (5-37) U/L ALT 89 H (0-40) U/L Alkaline Phosphatase 199 H (39-117) U/L Albumin 3.4 L (3.5-5.0) g/dL Urine 10/23/22 Range/Units 17:28 Urine Color Dark Yellow Urine Appearance Clear Urine pH 6.5 (5.0-9.0) Ur Specific [place] 1.015 (1.005-1.025) Urine Protein Trace (Neg-Trace) mg/dL Urine Glucose (UA) Negative (Negative) mg/dL Microbiology Microbiology Results: Microbiology 10/23/22 21:29 Abdominal Fluid Gram Stain - Final 10/23/22 21:29 Abdominal Fluid Routine Culture - Preliminary No growth to date. 10/23/22 21:29 Abdominal Fluid Anaerobic Culture - Preliminary No growth to date. Imaging CT scan - abdomen: Radiologist's impression: 1.? No sites of active gastrointestinal bleeding are identified on this study. 2.? Hepatosplenomegaly with hepatic steatosis. Heterogeneous enhancement of the hepatic parenchyma as well as subtle contour nodularity may be due to a degree of steatohepatitis or early cirrhosis. 3.? Mild wall thickening at the ascending colon with surrounding fat stranding, potentially due to mild portal hypertension colopathy or colitis. 4.? Small volume of intraperitoneal ascites. 5.? Retroperitoneal fat stranding in the upper abdomen extending into the pelvis. This is likely related to the ascites and hepatic abnormalities, though pancreatitis cannot be completely excluded. Recommend correlation with serum amylase and lipase which would be more sensitive and specific. Assessment and Plan (1) Abdominal pain: Status: Acute (2) Colitis: Status: Acute (3) Alcohol withdrawal: Status: Acute (4) Alcohol use disorder: Status: Acute (5) GI bleed: Status: Acute Plan Based on the overall assessment, appears consistent with intermittent rectal outlet bleeding in the past, and more recently likely infectious versus ischemic colitis. Inflammatory colitis less likely given acuity of the symptoms. Abd pain also likely due to colitis as it is mostly lower and crampy in nature. However, given underlying liver disease (advanced fibrosis vs early cirrhosis based on CT) with signs of portal HTN as well as layering density noted on CT in stomach and prox duodenum, will arrange for EGD to rule concurrent upper GI source. Ddx include etOH related gastritis, PUD, GAVE etc. Does not appear to be variceal based on hx as well as vitals. Plan: - keep NPO for EGD today - Start PPI BID - CIWA protocol for withdrawal - Repeat paracentesis as previous sample clotted - Also ordered LDH, lactate and GI panel - Daily LFTs - Also recommend addiction med consultation prior to discharge Time Spent With Patient Time: Total time managing care of this patient today ____ minutes. Procedures Date of Service Date of Service: 10/24/22
--- NOTE | 2022-10-24 14:07 | P.PNIM_ITS ---
Subjective Subjective Date of Service: 10/24/22 Interval History: seen and examined this morning follow up for GI bleeding, colitis reporting lower abdominal pain; denies alcohol withdrawal related symptoms at this time Review of Systems Review of Systems: Yes all other systems are reviewed and are negative Constitutional Constitutional: Denies chills and Denies fever(s) Cardiovascular Cardiovascular: Denies chest pain and Denies palpitations Gastrointestinal Gastrointestinal: Reports abdominal pain, Denies nausea and Denies vomiting Endocrine Endocrine: Denies palpitations Physical Exam Vital Signs: Vital Signs: Last Vital Signs Temp 99.1 F 10/24/22 12:00 Pulse 99 10/24/22 12:00 Resp 20 10/24/22 12:00 BP 129/59 L 10/24/22 12:00 Pulse Ox 93 10/24/22 12:00 O2 Del Method 10/24/22 12:00 O2 Flow Rate 2 10/24/22 12:00 BMI result Body Mass Index 34.4 Const: General: cooperative, comfortable, alert and awake Nutritional Appearance: overweight Orientation/consciousness: patient oriented x3 Resp: Effort & Inspection: normal respiratory effort and able to speak in complete sentences Auscultation: clear to auscultation bilaterally Cardio: Rate: regular rate Heart sounds: S1 normal heart sound present and S2 normal heart sound present GI: Other: mild tenderness lower abdomen, no rebound Inspection: No distended Palpation (GI): Soft to palpation Neuro: General: patient oriented x3 and CN's II-XI intact bilaterally Extrem: General: Yes no pedal edema Objective Data Active Medications Albuterol Sulfate (Albuterol Sulfate 90 Mcg 8 Gm Inhaler) 2 puff INHALE Q4H PRN PRN Reason: Shortness Of Breath Amlodipine Besylate (Amlodipine Besylate 5 Mg Tablet) 5 mg PO DAILY [facility]; Protocol Last Admin: 10/24/22 09:02 Dose: 5 mg Documented By: AMISH Folic Acid (Folic Acid 1 Mg Tablet) 1 mg PO DAILY [facility] Last Admin: 10/24/22 09:02 Dose: 1 mg Documented By: AMISH Ceftriaxone Sodium 1 gm/ (Sodium Chloride) 50 mls @ 100 mls/hr IV Q24H [facility] Last Infusion: 10/23/22 21:51 Dose: 0 mls/hr Documented By: JOSE MANUEL Metronidazole (Flagyl) 500 mg in 100 mls @ 100 mls/hr IV Q8H [facility] Last Admin: 10/24/22 12:42 Dose: 100 mls/hr Documented By: AMISH Lactated Ringer's (Lr) 1,000 mls @ 125 mls/hr IVCONT .Q8H [facility] Last Admin: 10/24/22 06:11 Dose: 125 mls/hr Documented By: ANIBAL Magnesium Oxide (Magnesium Oxide 400 Mg Tablet) 200 mg PO DAILY [facility] Last Admin: 10/24/22 09:03 Dose: 200 mg Documented By: AMISH Morphine Sulfate (Morphine Sulfate 4 Mg/Ml Cartridge) 4 mg IVPUSH Q4H PRN; Protocol PRN Reason: Pain, Severe (Pain Scale 7-10) Multivitamins/Vitamin C (Multivitamin Tablet) 1 tab PO DAILY [facility] Last Admin: 10/24/22 09:02 Dose: 1 tab Documented By: AMISH Ondansetron HCl (Ondansetron Hcl 4 Mg/2 Ml Vial) 4 mg IVPUSH Q8H PRN PRN Reason: Nausea and Vomiting Pharmacy Consult (Consult Rx Etoh Phenob Im/Po) 1 each MISCELLANE ONCE PRN; Protocol PRN Reason: Consult order Phenobarbital (Phenobarbital 15 Mg Tablet) 45 mg PO BID [facility] Stop: 10/25/22 21:01 Last Admin: 10/24/22 09:02 Dose: 45 mg Documented By: AMISH Phenobarbital (Phenobarbital 30 Mg Tablet) 30 mg PO BID [facility] Stop: 10/27/22 21:01 Phenobarbital (Phenobarbital 15 Mg Tablet) 15 mg PO DAILY [facility] Stop: 10/29/22 09:01 Sodium Chloride (0.9 % Sodium Chloride Flush 3 Ml Syringe) 3 ml IVFLUSH QSHIFT [facility] Last Admin: 10/24/22 09:02 Dose: Not Given Documented By: AMISH Non-Admin Reason: IV Running Thiamine HCl (Thiamine Hcl 100 Mg Tablet) 100 mg PO DAILY [facility] Last Admin: 10/24/22 09:02 Dose: 100 mg Documented By: AMISH Labs 10/24/22 05:53 10/24/22 05:53 Labs: Laboratory Results - last 24 hr 10/23/22 10/23/22 10/23/22 13:28 17:00 17:04 MCV MCH MCHC RDW Plt Count MPV Immature Gran % (Auto) Neut % (Auto) Lymph % (Auto) [place] % (Auto) Eos % (Auto) Baso % (Auto) Lymph # (Auto) [place] # (Auto) Eos # (Auto) Baso # (Auto) Abs Immat Gran (auto) Absolute Neuts (auto) Absolute Nucleated RBC Nucleated RBC % (auto) Smear Path Review Anion Gap Estim Creat Clear Calc Estimated GFR Random Glucose Calcium Magnesium 1.7 Ammonia Troponin I High Sens B-Natriuretic Peptide Amylase Lipase 30 Urine Color Urine Appearance Urine pH Ur Specific [place] Urine Protein Urine Glucose (UA) Urine Ketones Urine Blood Urine Nitrite Ur Leukocyte Esterase Urine RBC Urine WBC Ur Squamous Epith Cells Urine Bacteria Hyaline Casts Peritoneal pH Peritoneal WBC Peritoneal RBC Periton Neutrophils Peritoneal Monocytes Peritoneal Tot Protein Peritoneal Albumin Peritoneal LDH Peritoneal Glucose Urine Opiates Screen Urine Fentanyl Screen Ur Barbiturates Screen Ur Phencyclidine Scrn Ur Amphetamines Screen U Benzodiazepines Scrn Urine Cocaine Screen U Marijuana (THC) Screen Ethyl Alcohol Influenza Type A (PCR) NEGATIVE Influenza Type B (PCR) NEGATIVE RSV RNA Qual (PCR) NEGATIVE SARS-CoV-2 RNA (RT-PCR) NEGATIVE 10/23/22 10/23/22 10/23/22 17:04 17:04 17:28 MCV MCH MCHC RDW Plt Count MPV Immature Gran % (Auto) Neut % (Auto) Lymph % (Auto) [place] % (Auto) Eos % (Auto) Baso % (Auto) Lymph # (Auto) [place] # (Auto) Eos # (Auto) Baso # (Auto) Abs Immat Gran (auto) Absolute Neuts (auto) Absolute Nucleated RBC Nucleated RBC % (auto) Smear Path Review Anion Gap Estim Creat Clear Calc Estimated GFR Random Glucose Calcium Magnesium Ammonia Troponin I High Sens < 3.5 B-Natriuretic Peptide Amylase Lipase Urine Color Dark Yellow Urine Appearance Clear Urine pH 6.5 Ur Specific [place] 1.015 Urine Protein Trace Urine Glucose (UA) Negative Urine Ketones Trace Urine Blood Negative Urine Nitrite Negative Ur Leukocyte Esterase Trace H Urine RBC 0-2 Urine WBC 0-5 Ur Squamous Epith Cells 3-5 Urine Bacteria None Seen Hyaline Casts 0-2 Peritoneal pH Peritoneal WBC Peritoneal RBC Periton Neutrophils Peritoneal Monocytes Peritoneal Tot Protein Peritoneal Albumin Peritoneal LDH Peritoneal Glucose Urine Opiates Screen Urine Fentanyl Screen Ur Barbiturates Screen Ur Phencyclidine Scrn Ur Amphetamines Screen U Benzodiazepines Scrn Urine Cocaine Screen U Marijuana (THC) Screen Ethyl Alcohol 260 Influenza Type A (PCR) Influenza Type B (PCR) RSV RNA Qual (PCR) SARS-CoV-2 RNA (RT-PCR) 10/23/22 10/23/22 10/23/22 17:28 21:16 21:16 MCV MCH MCHC RDW Plt Count MPV Immature Gran % (Auto) Neut % (Auto) Lymph % (Auto) [place] % (Auto) Eos % (Auto) Baso % (Auto) Lymph # (Auto) [place] # (Auto) Eos # (Auto) Baso # (Auto) Abs Immat Gran (auto) Absolute Neuts (auto) Absolute Nucleated RBC Nucleated RBC % (auto) Smear Path Review Anion Gap Estim Creat Clear Calc Estimated GFR Random Glucose Calcium Magnesium Ammonia Troponin I High Sens B-Natriuretic Peptide 56 Amylase 37 Lipase Urine Color Urine Appearance Urine pH Ur Specific [place] Urine Protein Urine Glucose (UA) Urine Ketones Urine Blood Urine Nitrite Ur Leukocyte Esterase Urine RBC Urine WBC Ur Squamous Epith Cells Urine Bacteria Hyaline Casts Peritoneal pH Peritoneal WBC Peritoneal RBC Periton Neutrophils Peritoneal Monocytes Peritoneal Tot Protein Peritoneal Albumin Peritoneal LDH Peritoneal Glucose Urine Opiates Screen Not Detected Urine Fentanyl Screen Not Detected Ur Barbiturates Screen Not Detected Ur Phencyclidine Scrn Not Detected Ur Amphetamines Screen Not Detected U Benzodiazepines Scrn POSITIVE H Urine Cocaine Screen Not Detected U Marijuana (THC) Screen Not Detected Ethyl Alcohol Influenza Type A (PCR) Influenza Type B (PCR) RSV RNA Qual (PCR) SARS-CoV-2 RNA (RT-PCR) 10/23/22 10/23/22 10/23/22 21:17 21:29 21:29 MCV MCH MCHC RDW Plt Count MPV Immature Gran % (Auto) Neut % (Auto) Lymph % (Auto) [place] % (Auto) Eos % (Auto) Baso % (Auto) Lymph # (Auto) [place] # (Auto) Eos # (Auto) Baso # (Auto) Abs Immat Gran (auto) Absolute Neuts (auto) Absolute Nucleated RBC Nucleated RBC % (auto) Smear Path Review Anion Gap Estim Creat Clear Calc Estimated GFR Random Glucose Calcium Magnesium Ammonia 45 Troponin I High Sens B-Natriuretic Peptide Amylase Lipase Urine Color Urine Appearance Urine pH Ur Specific [place] Urine Protein Urine Glucose (UA) Urine Ketones Urine Blood Urine Nitrite Ur Leukocyte Esterase Urine RBC Urine WBC Ur Squamous Epith Cells Urine Bacteria Hyaline Casts Peritoneal pH Peritoneal WBC TNP Peritoneal RBC TNP [place] Neutrophils 50 Peritoneal Monocytes 50 Peritoneal Tot Protein 2.8 Peritoneal Albumin 1.4 Peritoneal LDH 192 Peritoneal Glucose 104 Urine Opiates Screen Urine Fentanyl Screen Ur Barbiturates Screen Ur Phencyclidine Scrn Ur Amphetamines Screen U Benzodiazepines Scrn Urine Cocaine Screen U Marijuana (THC) Screen Ethyl Alcohol Influenza Type A (PCR) Influenza Type B (PCR) RSV RNA Qual (PCR) SARS-CoV-2 RNA (RT-PCR) 10/23/22 10/24/22 10/24/22 21:29 05:53 05:53 MCV 111.3 H MCH 38.2 H MCHC 34.4 RDW 15.0 Plt Count 144 L MPV 10.1 Immature Gran % (Auto) 0.3 Neut % (Auto) 74.6 H Lymph % (Auto) 9.5 L [place] % (Auto) 14.3 H Eos % (Auto) 0.6 Baso % (Auto) 0.7 Lymph # (Auto) 0.9 L [place] # (Auto) 1.3 H Eos # (Auto) 0.1 Baso # (Auto) 0.1 Abs Immat Gran (auto) 0.03 Absolute Neuts (auto) 6.7 Absolute Nucleated RBC 0.000 Nucleated RBC % (auto) 0.0 Smear Path Review SEE NOTE Anion Gap 17 Estim Creat Clear Calc 210.7 Estimated GFR > 60 Random Glucose 93 Calcium 7.7 L Magnesium Ammonia Troponin I High Sens B-Natriuretic Peptide Amylase Lipase Urine Color Urine Appearance Urine pH Ur Specific [place] Urine Protein Urine Glucose (UA) Urine Ketones Urine Blood Urine Nitrite Ur Leukocyte Esterase Urine RBC Urine WBC Ur Squamous Epith Cells Urine Bacteria Hyaline Casts Peritoneal pH 7.82 Peritoneal WBC Peritoneal RBC Periton Neutrophils Peritoneal Monocytes Peritoneal Tot Protein Peritoneal Albumin Peritoneal LDH Peritoneal Glucose Urine Opiates Screen Urine Fentanyl Screen Ur Barbiturates Screen Ur Phencyclidine Scrn Ur Amphetamines Screen U Benzodiazepines Scrn Urine Cocaine Screen U Marijuana (THC) Screen Ethyl Alcohol Influenza Type A (PCR) Influenza Type B (PCR) RSV RNA Qual (PCR) SARS-CoV-2 RNA (RT-PCR) Microbiology Microbiology Results: Microbiology 10/23/22 21:29 Gram Stain - Final Abdominal Fluid Routine Culture - Preliminary No growth to date. Anaerobic Culture - Preliminary No growth to date. Assessment and Plan (1) Acute respiratory failure with hypoxia: Status: Acute (2) GI bleed: Status: Acute (3) Alcohol withdrawal: Status: Acute Plan This is a 41-year-old male with past medical history of alcohol abuse, hypertension, asthma presents to the hospital with complaints of abdominal pain as well as GI bleed found to have a following acute alcohol withdrawal continue phenobarb protocol continue thiamine and folic acid supplement monitor for withdrawal symptoms declines information/resources about abstinence abdominal pain CT concerning for acute colitis unlikely to be pancreatitis, amylase and lipase negative continue IV ceftriaxone, flagyl paracentesis done, but sample clotted, unable to run WBC therefore unable to rule out SBP but will be on abx for colitis GI consult pending GI bleed/red bright blood per rectum possibly lower GI in the setting of colitis NPO, IVF GI eval pending transaminitis Likely r/t etoh autoimmune markers, hepatitis panel pending trend LFTs acute hypoxic respiratory failure BNP negative, Chest CT with no acute abnormalities no wheezing back on room air follow respiratory status asthma no acute exacerbation continue p.r.n. albuterol hypertension stable continue antihypertensives DVT prophylaxis: Early ambulation, SCDs attending - dr. vega patient requires ongoing inpatient hospitalization for management of abdominal pain, GI bleeding, alcohol withdrawal Time Spent With Patient Time: Total time managing care of this patient today ____ minutes. Quality Stroke Does the patient have a stroke diagnosis?: No VTE Prior VTE?: No VTE Risk Level:: Medical - moderate - high VTE Device Contraindication: N/A - Device Ordered VTE Drug Contraindication: Treatment Not Indicated
--- NOTE | 2022-10-24 15:23 | HO.ANESPROP2 ---
HPI - Anesthesia Eval Consult details Narrative: 41 Male presenting for upper endoscopy, untreated MOUNIKA PMFSH Active Problems Active Problems: All Active Problems (Updated 10/23/22 @ 22:21 by David Nieto MD) Acute respiratory failure with hypoxia (Acute) Transaminitis (Acute) GI bleed (Acute) Alcohol withdrawal (Acute) Abdominal pain (Acute) Colitis (Acute) Acute pancreatitis (Acute) Ascites (Acute) Past Medical History Medical History Alcohol abuse Asthma HTN (hypertension) Family History Family history of problems with anesthesia: No Surgical History Surgical History No pertinent past surgical history History of Problems with Anesthesia: No Social History Social History Household Members: Family Housing: House Do you presently have visiting nurse or other home services: No Alcohol intake: current Alcohol intake frequency: other Alcohol type: beer, wine and hard liquor Patient Tobacco Use Status: Former Tobacco user Quit Date: decades ago Substance Use Type: Marijuana service: No Current occupational status: employed Meds Allergies Allergy/AdvReac Type Severity Reaction Status Date / Time No Known Allergies Allergy Verified 05/04/21 14:57 Active Medications: Current Medications Albuterol Sulfate (Albuterol Sulfate 90 Mcg 8 Gm Inhaler) 2 puff INHALE Q4H PRN PRN Reason: Shortness Of Breath Amlodipine Besylate (Amlodipine Besylate 5 Mg Tablet) 5 mg PO DAILY YUMIKO; Protocol Last Admin: 10/24/22 09:02 Dose: 5 mg Folic Acid (Folic Acid 1 Mg Tablet) 1 mg PO DAILY YUMIKO Last Admin: 10/24/22 09:02 Dose: 1 mg Ceftriaxone Sodium 1 gm/ (Sodium Chloride) 50 mls @ 100 mls/hr IV Q24H YUMIKO Last Infusion: 10/23/22 21:51 Dose: Infused Metronidazole (Flagyl) 500 mg in 100 mls @ 100 mls/hr IV Q8H YUMIKO Last Infusion: 10/24/22 14:00 Dose: Infused Lactated Ringer's (Lr) 1,000 mls @ 125 mls/hr IVCONT .Q8H YUMIKO Last Admin: 10/24/22 14:16 Dose: Not Given Magnesium Oxide (Magnesium Oxide 400 Mg Tablet) 200 mg PO DAILY [facility] Last Admin: 10/24/22 09:03 Dose: 200 mg Morphine Sulfate (Morphine Sulfate 4 Mg/Ml Cartridge) 4 mg IVPUSH Q4H PRN; Protocol PRN Reason: Pain, Severe (Pain Scale 7-10) Multivitamins/Vitamin C (Multivitamin Tablet) 1 tab PO DAILY [facility] Last Admin: 10/24/22 09:02 Dose: 1 tab Ondansetron HCl (Ondansetron Hcl 4 Mg/2 Ml Vial) 4 mg IVPUSH Q8H PRN PRN Reason: Nausea and Vomiting Pharmacy Consult (Consult Rx Etoh Phenob Im/Po) 1 each MISCELLANE ONCE PRN; Protocol PRN Reason: Consult order Phenobarbital (Phenobarbital 15 Mg Tablet) 45 mg PO BID [facility] Stop: 10/25/22 21:01 Last Admin: 10/24/22 09:02 Dose: 45 mg Phenobarbital (Phenobarbital 30 Mg Tablet) 30 mg PO BID [facility] Stop: 10/27/22 21:01 Phenobarbital (Phenobarbital 15 Mg Tablet) 15 mg PO DAILY [facility] Stop: 10/29/22 09:01 Sodium Chloride (0.9 % Sodium Chloride Flush 3 Ml Syringe) 3 ml IVFLUSH QSHIFT [facility] Last Admin: 10/24/22 15:06 Dose: Not Given Thiamine HCl (Thiamine Hcl 100 Mg Tablet) 100 mg PO DAILY [facility] Last Admin: 10/24/22 09:02 Dose: 100 mg Home Medications Medication Instructions Recorded Confirmed Last Taken Type albuterol sulfate 90 mcg/actuation 2 puff inhalation Q4-6H PRN 10/23/22 10/23/22 Unknown History aerosol inhaler (ProAir HFA) Shortness Of Breath amlodipine 5 mg tablet 5 mg PO DAILY 10/23/22 10/23/22 Unknown History folic acid 1 mg tablet 1 mg PO DAILY 10/23/22 10/23/22 Unknown History magnesium 250 mg tablet 250 mg PO DAILY 10/23/22 10/23/22 Unknown History multivitamin 1 tab PO DAILY 10/23/22 10/23/22 Unknown History Exam Exam Date and Time: October 24, 2022 152 Height,Weight and Vital Signs: Height 5 ft 10 in Weight 230 lb Last Vital Signs Temp 99.2 F 10/24/22 14:31 Pulse 95 10/24/22 14:31 Resp 20 10/24/22 14:31 BP 141/86 H 10/24/22 14:31 Pulse Ox 94 10/24/22 14:31 O2 Del Method 10/24/22 14:31 O2 Flow Rate 2 10/24/22 12:00 Pertinent Lab Results Pertinent Lab Results: Laboratory Tests 10/23/22 10/23/22 10/23/22 13:28 13:28 13:28 WBC 11.8 H RBC 3.44 L Hgb 13.2 L Hct 37.8 L MCV 109.9 H MCH 38.4 H MCHC 34.9 RDW 15.0 Plt Count 157 L MPV 9.2 L Immature Gran % (Auto) 0.4 Neut % (Auto) 75.6 H Lymph % (Auto) 10.6 L Norton % (Auto) 12.4 H Eos % (Auto) 0.3 Baso % (Auto) 0.7 Lymph # (Auto) 1.3 Norton # (Auto) 1.5 H Eos # (Auto) 0.0 Baso # (Auto) 0.1 Abs Immat Gran (auto) 0.05 H Absolute Neuts (auto) 8.9 H Absolute Nucleated RBC 0.000 Nucleated RBC % (auto) 0.0 Smear Path Review PT 15.1 H INR 1.3 H Sodium 137 Potassium 3.3 Chloride 99 Carbon Dioxide 22 Anion Gap 19 BUN 4 L Creatinine 0.59 Estim Creat Clear Calc 197.1 Estimated GFR > 60 Random Glucose 108 Calcium 7.8 L Magnesium Total Bilirubin 2.2 H Direct Bilirubin 1.2 H AST 234 H ALT 89 H Alkaline Phosphatase 199 H Ammonia Troponin I High Sens B-Natriuretic Peptide Total Protein 7.0 Albumin 3.4 L Amylase Lipase 30 Urine Color Urine Appearance Urine pH Ur Specific [place] Urine Protein Urine Glucose (UA) Urine Ketones Urine Blood Urine Nitrite Ur Leukocyte Esterase Urine RBC Urine WBC Ur Squamous Epith Cells Urine Bacteria Hyaline Casts Peritoneal pH Peritoneal WBC Peritoneal RBC Periton Neutrophils Peritoneal Monocytes Peritoneal Tot Protein Peritoneal Albumin Peritoneal LDH Peritoneal Glucose Urine Opiates Screen Urine Fentanyl Screen Ur Barbiturates Screen Ur Phencyclidine Scrn Ur Amphetamines Screen U Benzodiazepines Scrn Urine Cocaine Screen U Marijuana (THC) Screen Ethyl Alcohol Influenza Type A (PCR) Influenza Type B (PCR) RSV RNA Qual (PCR) SARS-CoV-2 RNA (RT-PCR) 10/23/22 10/23/22 10/23/22 17:00 17:04 17:04 WBC RBC Hgb Hct MCV MCH MCHC RDW Plt Count MPV Immature Gran % (Auto) Neut % (Auto) Lymph % (Auto) Norton % (Auto) Eos % (Auto) Baso % (Auto) Lymph # (Auto) Norton # (Auto) Eos # (Auto) Baso # (Auto) Abs Immat Gran (auto) Absolute Neuts (auto) Absolute Nucleated RBC Nucleated RBC % (auto) Smear Path Review PT INR Sodium Potassium Chloride Carbon Dioxide Anion Gap BUN Creatinine Estim Creat Clear Calc Estimated GFR Random Glucose Calcium Magnesium 1.7 Total Bilirubin Direct Bilirubin AST ALT Alkaline Phosphatase Ammonia Troponin I High Sens < 3.5 B-Natriuretic Peptide Total Protein Albumin Amylase Lipase Urine Color Urine Appearance Urine pH Ur Specific [place] Urine Protein Urine Glucose (UA) Urine Ketones Urine Blood Urine Nitrite Ur Leukocyte Esterase Urine RBC Urine WBC Ur Squamous Epith Cells Urine Bacteria Hyaline Casts Peritoneal pH Peritoneal WBC Peritoneal RBC Periton Neutrophils Peritoneal Monocytes Peritoneal Tot Protein Peritoneal Albumin Peritoneal LDH Peritoneal Glucose Urine Opiates Screen Urine Fentanyl Screen Ur Barbiturates Screen Ur Phencyclidine Scrn Ur Amphetamines Screen U Benzodiazepines Scrn Urine Cocaine Screen U Marijuana (THC) Screen Ethyl Alcohol Influenza Type A (PCR) NEGATIVE Influenza Type B (PCR) NEGATIVE RSV RNA Qual (PCR) NEGATIVE SARS-CoV-2 RNA (RT-PCR) NEGATIVE 10/23/22 10/23/22 10/23/22 17:04 17:28 17:28 WBC RBC Hgb Hct MCV MCH MCHC RDW Plt Count MPV Immature Gran % (Auto) Neut % (Auto) Lymph % (Auto) Norton % (Auto) Eos % (Auto) Baso % (Auto) Lymph # (Auto) Norton # (Auto) Eos # (Auto) Baso # (Auto) Abs Immat Gran (auto) Absolute Neuts (auto) Absolute Nucleated RBC Nucleated RBC % (auto) Smear Path Review PT INR Sodium Potassium Chloride Carbon Dioxide Anion Gap BUN Creatinine Estim Creat Clear Calc Estimated GFR Random Glucose Calcium Magnesium Total Bilirubin Direct Bilirubin AST ALT Alkaline Phosphatase Ammonia Troponin I High Sens B-Natriuretic Peptide Total Protein Albumin Amylase Lipase Urine Color Dark Yellow Urine Appearance Clear Urine pH 6.5 Ur Specific [place] 1.015 Urine Protein Trace Urine Glucose (UA) Negative Urine Ketones Trace Urine Blood Negative Urine Nitrite Negative Ur Leukocyte Esterase Trace H Urine RBC 0-2 Urine WBC 0-5 Ur Squamous Epith Cells 3-5 Urine Bacteria None Seen Hyaline Casts 0-2 Peritoneal pH Peritoneal WBC Peritoneal RBC Periton Neutrophils Peritoneal Monocytes Peritoneal Tot Protein Peritoneal Albumin Peritoneal LDH Peritoneal Glucose Urine Opiates Screen Not Detected Urine Fentanyl Screen Not Detected Ur Barbiturates Screen Not Detected Ur Phencyclidine Scrn Not Detected Ur Amphetamines Screen Not Detected U Benzodiazepines Scrn POSITIVE H Urine Cocaine Screen Not Detected U Marijuana (THC) Screen Not Detected Ethyl Alcohol 260 Influenza Type A (PCR) Influenza Type B (PCR) RSV RNA Qual (PCR) SARS-CoV-2 RNA (RT-PCR) 10/23/22 10/23/22 10/23/22 21:16 21:16 21:17 WBC RBC Hgb Hct MCV MCH MCHC RDW Plt Count MPV Immature Gran % (Auto) Neut % (Auto) Lymph % (Auto) Norton % (Auto) Eos % (Auto) Baso % (Auto) Lymph # (Auto) [place] # (Auto) Eos # (Auto) Baso # (Auto) Abs Immat Gran (auto) Absolute Neuts (auto) Absolute Nucleated RBC Nucleated RBC % (auto) Smear Path Review PT INR Sodium Potassium Chloride Carbon Dioxide Anion Gap BUN Creatinine Estim Creat Clear Calc Estimated GFR Random Glucose Calcium Magnesium Total Bilirubin Direct Bilirubin AST ALT Alkaline Phosphatase Ammonia 45 Troponin I High Sens B-Natriuretic Peptide 56 Total Protein Albumin Amylase 37 Lipase Urine Color Urine Appearance Urine pH Ur Specific [place] Urine Protein Urine Glucose (UA) Urine Ketones Urine Blood Urine Nitrite Ur Leukocyte Esterase Urine RBC Urine WBC Ur Squamous Epith Cells Urine Bacteria Hyaline Casts Peritoneal pH Peritoneal WBC Peritoneal RBC Periton Neutrophils Peritoneal Monocytes Peritoneal Tot Protein Peritoneal Albumin Peritoneal LDH Peritoneal Glucose Urine Opiates Screen Urine Fentanyl Screen Ur Barbiturates Screen Ur Phencyclidine Scrn Ur Amphetamines Screen U Benzodiazepines Scrn Urine Cocaine Screen U Marijuana (THC) Screen Ethyl Alcohol Influenza Type A (PCR) Influenza Type B (PCR) RSV RNA Qual (PCR) SARS-CoV-2 RNA (RT-PCR) 10/23/22 10/23/22 10/23/22 21:29 21:29 21:29 WBC RBC Hgb Hct MCV MCH MCHC RDW Plt Count MPV Immature Gran % (Auto) Neut % (Auto) Lymph % (Auto) Norton % (Auto) Eos % (Auto) Baso % (Auto) Lymph # (Auto) [place] # (Auto) Eos # (Auto) Baso # (Auto) Abs Immat Gran (auto) Absolute Neuts (auto) Absolute Nucleated RBC Nucleated RBC % (auto) Smear Path Review PT INR Sodium Potassium Chloride Carbon Dioxide Anion Gap BUN Creatinine Estim Creat Clear Calc Estimated GFR Random Glucose Calcium Magnesium Total Bilirubin Direct Bilirubin AST ALT Alkaline Phosphatase Ammonia Troponin I High Sens B-Natriuretic Peptide Total Protein Albumin Amylase Lipase Urine Color Urine Appearance Urine pH Ur Specific [place] Urine Protein Urine Glucose (UA) Urine Ketones Urine Blood Urine Nitrite Ur Leukocyte Esterase Urine RBC Urine WBC Ur Squamous Epith Cells Urine Bacteria Hyaline Casts Peritoneal pH 7.82 Peritoneal WBC TNP Peritoneal RBC TNP Periton Neutrophils 50 Peritoneal Monocytes 50 Peritoneal Tot Protein 2.8 Peritoneal Albumin 1.4 Peritoneal LDH 192 Peritoneal Glucose 104 Urine Opiates Screen Urine Fentanyl Screen Ur Barbiturates Screen Ur Phencyclidine Scrn Ur Amphetamines Screen U Benzodiazepines Scrn Urine Cocaine Screen U Marijuana (THC) Screen Ethyl Alcohol Influenza Type A (PCR) Influenza Type B (PCR) RSV RNA Qual (PCR) SARS-CoV-2 RNA (RT-PCR) 10/24/22 10/24/22 05:53 05:53 WBC 9.0 RBC 3.19 L Hgb 12.2 L Hct 35.5 L MCV 111.3 H MCH 38.2 H MCHC 34.4 RDW 15.0 Plt Count 144 L MPV 10.1 Immature Gran % (Auto) 0.3 Neut % (Auto) 74.6 H Lymph % (Auto) 9.5 L [place] % (Auto) 14.3 H Eos % (Auto) 0.6 Baso % (Auto) 0.7 Lymph # (Auto) 0.9 L [place] # (Auto) 1.3 H Eos # (Auto) 0.1 Baso # (Auto) 0.1 Abs Immat Gran (auto) 0.03 Absolute Neuts (auto) 6.7 Absolute Nucleated RBC 0.000 Nucleated RBC % (auto) 0.0 Smear Path Review SEE NOTE PT INR Sodium 140 Potassium 3.4 Chloride 101 Carbon Dioxide 25 Anion Gap 17 BUN 5 L Creatinine 0.57 Estim Creat Clear Calc 210.7 Estimated GFR > 60 Random Glucose 93 Calcium 7.7 L Magnesium Total Bilirubin Direct Bilirubin AST ALT Alkaline Phosphatase Ammonia Troponin I High Sens B-Natriuretic Peptide Total Protein Albumin Amylase Lipase Urine Color Urine Appearance Urine pH Ur Specific [place] Urine Protein Urine Glucose (UA) Urine Ketones Urine Blood Urine Nitrite Ur Leukocyte Esterase Urine RBC Urine WBC Ur Squamous Epith Cells Urine Bacteria Hyaline Casts Peritoneal pH Peritoneal WBC Peritoneal RBC Periton Neutrophils Peritoneal Monocytes Peritoneal Tot Protein Peritoneal Albumin Peritoneal LDH Peritoneal Glucose Urine Opiates Screen Urine Fentanyl Screen Ur Barbiturates Screen Ur Phencyclidine Scrn Ur Amphetamines Screen U Benzodiazepines Scrn Urine Cocaine Screen U Marijuana (THC) Screen Ethyl Alcohol Influenza Type A (PCR) Influenza Type B (PCR) RSV RNA Qual (PCR) SARS-CoV-2 RNA (RT-PCR) Airway Mallampati Class: III TM Dist: >3cm Neck ROM: Full Loose/Missing/Broken Teeth: Yes Assessment and Plan Assessment Anesthesia Assessment: Anesthesia Plan Discussed and Chart Reviewed Final Anesthetic Review Family History of Problems with Anesthesia: No History of Problems with Anesthesia: No NPO: Yes ASA Class: III Final Preanesthetic Review: No Changes in Pt Med Stat, Meds/Allgs Chart Reviewed, Consent Obtained/Reviewed and Anes Risks/Benef Reviewed Patient Risk: Intermediate Procedure Risk: Low Anesthetic Plan Anesthetic Plan: MAC: Disposition: Standard PACU
[2022-10-24 16:02] LABS: Anion Gap 18 (12-20); Carbon Dioxide 27 mmol/L (22-29); Chloride 101 mmol/L (96-108); Potassium 3.5 mmol/L (3.3-5.1); Sodium 142 mmol/L (135-145)
--- NOTE | 2022-10-24 16:27 | P.OP_ITS ---
Operative Note Operative Note Date of Service: 10/24/22 Narrative: Procedure: Esophagogastroduodenoscopy Endoscopist: Gillian Varela MD Indication: Abd pain, GI bleeding Anesthesia Provider: Fátima Luciano CRNA Anesthesia Type: MAC ?? EGD Procedure:?? The procedure, indications, preparation and potential complications were reviewed with the patient, who indicated understanding and gave written informed consent to proceed. A physical exam was performed. The endoscope was introduced through the mouth, and advanced to the second part of duodenum. The mucosa was carefully examined on slow withdrawal of the endoscope. The patient tolerated the procedure well. There were no immediate complications.? ? EGD Findings:? * Esophagus:? Small erosions < 5 mm were noted at the GE junction. The Z line was at 40 cm. * Stomach:?A pedunculated polyp with overlying villous changes was noted in the cardia which was prolapsing up in the esophagus. Cold forceps biopsies were obtained. Diffuse congestion and erythema in mosaic pattern consistent with portal hypertensive gastropathy was noted in the whole stomach. Random gastric biopsies were taken to rule out H Pylori infection. * Duodenum:? Normal mucosa was noted in the whole of the examined duodenum. ? EGD Impressions:? * Grade A esophagitis * Gastric polyp (biopsy) * Portal hypertensive gastropathy (biopsy) * Normal duodenum ?? Recommendations:?? * Follow biopsy results. * Continue PPI therapy. * If H pylori +, patient will be prescribed eradication therapy followed by test of cure. * Avoid NSAIDs. * An outpatient colonoscopy will also be set up in 2-4 weeks to follow up on colitis and rectal bleeding. Above has been reviewed with the patient.
[2022-10-24 17:14] LABS: Lactate Dehydrogenase 222 U/L (118-273)
[2022-10-24] MEDS: Morphine Sulfate 4 MG/ML CARTRIDGE IVPUSH ×2 (17:28→21:37)
[2022-10-24] MEDS: Omeprazole 40 MG CAPSULE.DR PO (18:32)
[2022-10-24 18:39] LABS: Lactic Acid 0.9 mmol/L (0.5-2.0)
[2022-10-24] MEDS: cefTRIAXone sodium 1 GM in 0.9 % Sodium Chloride 50 ML IV (21:39)
[2022-10-24] MEDS: 0.9 % Sodium Chloride Flush 3 ML SYRINGE IVFLUSH (21:51)
[2022-10-24] MEDS: Albuterol Sulfate 90 MCG 8 GM INHALER 2 PUFF INHALE (23:00)
[2022-10-25] VITALS (9 sets, daily range): BP systolic 109–130; BP diastolic 58–76; PULSE 92–102; RESP 16–20; TEMP 37–37.4; O2SAT 90–97
[2022-10-25] MEDS: Lactated Ringers 1,000 ML 125 ML IVCONT (04:09)
[2022-10-25] MEDS: Albuterol Sulfate 90 MCG 8 GM INHALER 2 PUFF INHALE ×3 (04:11→20:07)
[2022-10-25] MEDS: metroNIDAZOLE/NS 500 MG/100 ML PIGGYBACK 100 MG IV ×3 (05:29→22:06)
[2022-10-25] MEDS: Omeprazole 40 MG CAPSULE.DR PO ×2 (05:30→15:52)
[2022-10-25] MEDS: Morphine Sulfate 4 MG/ML CARTRIDGE IVPUSH ×4 (06:36→21:09)
[2022-10-25 07:25] LABS: Hematocrit 34.3 % (42.0-52.0); Hemoglobin 11.7 g/dl (14.0-18.0); Mean Corpuscular HGB Conc 34.1 g/dl (31.0-36.0); Platelet Count 135 X10*3/uL (160-400); Red Blood Count 3.08 X10*6/uL (4.60-5.80); Red Cell Distribution Width 14.7 % (11.0-16.0); White Blood Count 7.5 X10*3/uL (4.8-10.8)
[2022-10-25 07:26] LABS: Mean Corpuscular Volume 111.4 fL (80.0-98.0)
[2022-10-25 07:30] LABS: HBS Num1 2.28 mIU/mL (0-7.99); HBc Num1 0.23 S/CO (0.00-0.79); HBsAGNum1 0.24 S/CO (0.00-0.99); Hepatitis A Antibody IgM 0.15 Index (0-0.79); Hepatitis B Core Antibody Nonreactive (Nonreactive); Hepatitis B Surface Antigen Negative (Negative); ~Hepatitis A Antibody IgM Nonreactive (Nonreactive); ~Hepatitis B Surface Antibody NONREACTIVE (Nonreactive); ~Hepatitis C Antibody Nonreactive (Nonreactive)
[2022-10-25 07:43] LABS: Alanine Aminotransferase 54 U/L (0-40); Albumin Level 2.7 g/dL (3.5-5.0); Alkaline Phosphatase 151 U/L (39-117); Anion Gap 14 (12-20); Aspartate Amino Transferase 113 U/L (5-37); Bilirubin Direct 1.6 mg/dL (0.0-0.5); Blood Urea Nitrogen 6 mg/dL (9-16); Calcium 7.4 mg/dL (8.4-10.2); Carbon Dioxide 27 mmol/L (22-29); Chloride 99 mmol/L (96-108); Creatinine Clr Calc Pharmacy 206.3; Estimated Glomerular Filt Rate > 60; Glucose Random 88 mg/dL (60-115); Potassium 3.5 mmol/L (3.3-5.1); Sodium 136 mmol/L (135-145); Total Protein 5.8 g/dL (6.5-8.0)
[2022-10-25] MEDS: Thiamine HCL 100 MG TABLET PO (08:27)
[2022-10-25] MEDS: Folic Acid 1 MG TABLET PO (08:27)
[2022-10-25] MEDS: amLODIPine Besylate 5 MG TABLET PO (08:27)
[2022-10-25] MEDS: PHENobarbitaL 15 MG TABLET 45 MG PO ×2 (08:27→19:51)
[2022-10-25] MEDS: Multivitamin TABLET 1 TAB PO (08:28)
[2022-10-25] MEDS: 0.9 % Sodium Chloride Flush 3 ML SYRINGE IVFLUSH ×3 (08:28→19:52)
[2022-10-25] MEDS: Magnesium Oxide 400 MG TABLET 200 MG PO (08:28)
--- NOTE | 2022-10-25 09:48 | HO.POSTANES ---
Post Anesthesia Evaluation Post Anesthesia Evaluation Vital Signs: Vital Signs Temp Pulse Resp BP Pulse Ox O2 Del Method O2 Flow Rate 10/25/22 07:47 98.6 F 96 20 130/75 93 Nasal Cannula 2 10/25/22 03:01 92 95 3 10/25/22 00:00 98.9 F 100 18 113/60 96 Nasal Cannula 3 Anesthesia: Monitored Mental Status: Awake Pain Control: Satisfactory Nausea/Vomiting: None Hydration: Adequate Anesthesia-Related Issues: No Anes. Related Issues Comments: on 2 L oxygen cannula , was also on oxygen intermittently on the floor prior to procedure .
--- NOTE | 2022-10-25 13:50 | HO.PM.IMPN ---
Subjective Subjective Date of Service: 10/25/22 Interval History: seen and examined this morning follow up for GI bleed, colitis no further bleeding no overnight events still reporting mild lower abdominal pain. no further rectal bleeding at this time. Review of Systems Review of Systems: Yes all other systems are reviewed and are negative Constitutional Constitutional: Denies chills and Denies fever(s) Cardiovascular Cardiovascular: Denies chest pain, Denies palpitations and Denies dyspnea Respiratory Respiratory: Denies cough and Denies dyspnea Gastrointestinal Gastrointestinal: Reports abdominal pain, Denies nausea and Denies vomiting Endocrine Endocrine: Denies palpitations Physical Exam Vital Signs: Vital Signs: Last Vital Signs Temp 98.7 F 10/25/22 11:45 Pulse 97 10/25/22 11:45 Resp 16 10/25/22 11:45 BP 130/76 10/25/22 11:45 Pulse Ox 94 10/25/22 11:45 O2 Del Method 10/25/22 11:45 O2 Flow Rate 2 10/25/22 11:45 BMI result Body Mass Index 33.0 Const: General: cooperative, comfortable, alert and awake Nutritional Appearance: overweight Orientation/consciousness: patient oriented x3 Resp: Effort & Inspection: normal respiratory effort and able to speak in complete sentences Auscultation: clear to auscultation bilaterally Cardio: Rate: regular rate Heart sounds: S1 normal heart sound present and S2 normal heart sound present GI: Inspection: No distended Palpation (GI): Soft to palpation Neuro: General: patient oriented x3 and CN's II-XI intact bilaterally Extrem: General: Yes no pedal edema Objective Data Active Medications Albuterol Sulfate (Albuterol Sulfate 90 Mcg 8 Gm Inhaler) 2 puff INHALE Q4H PRN PRN Reason: Shortness Of Breath Last Admin: 10/25/22 04:11 Dose: 2 puff Documented By: RORY Amlodipine Besylate (Amlodipine Besylate 5 Mg Tablet) 5 mg PO DAILY [facility]; Protocol Last Admin: 10/25/22 08:27 Dose: 5 mg Documented By: CHARLEY Folic Acid (Folic Acid 1 Mg Tablet) 1 mg PO DAILY [facility] Last Admin: 10/25/22 08:27 Dose: 1 mg Documented By: CHARLEY Ceftriaxone Sodium 1 gm/ (Sodium Chloride) 50 mls @ 100 mls/hr IV Q24H [facility] Last Infusion: 10/24/22 22:22 Dose: 0 mls/hr Documented By: CTORRValery Metronidazole (Flagyl) 500 mg in 100 mls @ 100 mls/hr IV Q8H [facility] Last Infusion: 10/25/22 06:39 Dose: 0 mls/hr Documented By: CTORRValery Lactated Ringer's (Lr) 1,000 mls @ 125 mls/hr IVCONT .Q8H [facility] Last Infusion: 10/25/22 06:41 Dose: 125 mls/hr Documented By: CTORRValery Magnesium Oxide (Magnesium Oxide 400 Mg Tablet) 200 mg PO DAILY [facility] Last Admin: 10/25/22 08:28 Dose: 200 mg Documented By: CHARLEY Morphine Sulfate (Morphine Sulfate 4 Mg/Ml Cartridge) 4 mg IVPUSH Q4H PRN; Protocol PRN Reason: Pain, Severe (Pain Scale 7-10) Last Admin: 10/25/22 11:06 Dose: 4 mg Documented By: CHARLEY Multivitamins/Vitamin C (Multivitamin Tablet) 1 tab PO DAILY [facility] Last Admin: 10/25/22 08:28 Dose: 1 tab Documented By: CHARLEY Omeprazole (Omeprazole 40 Mg Capsule.Dr) 40 mg PO BID@0630,1630 [facility] Ondansetron HCl (Ondansetron Hcl 4 Mg/2 Ml Vial) 4 mg IVPUSH Q8H PRN PRN Reason: Nausea and Vomiting Pharmacy Consult (Consult Rx Etoh Phenob Im/Po) 1 each MISCELLANE ONCE PRN; Protocol PRN Reason: Consult order Phenobarbital (Phenobarbital 15 Mg Tablet) 45 mg PO BID [facility] Stop: 10/25/22 21:01 Last Admin: 10/25/22 08:27 Dose: 45 mg Documented By: CHARLEY Phenobarbital (Phenobarbital 30 Mg Tablet) 30 mg PO BID [facility] Stop: 10/27/22 21:01 Phenobarbital (Phenobarbital 15 Mg Tablet) 15 mg PO DAILY [facility] Stop: 10/29/22 09:01 Sodium Chloride (0.9 % Sodium Chloride Flush 3 Ml Syringe) 3 ml IVFLUSH QSHIFT [facility] Last Admin: 10/25/22 08:28 Dose: 3 ml Documented By: CHARLEY Thiamine HCl (Thiamine Hcl 100 Mg Tablet) 100 mg PO DAILY YUMIKO Last Admin: 10/25/22 08:27 Dose: 100 mg Documented By: CHARLEY Labs 10/25/22 06:09 10/25/22 06:09 Labs: Laboratory Results - last 24 hr 10/23/22 10/24/22 10/24/22 21:16 05:53 18:18 MCV MCH MCHC RDW Plt Count MPV Absolute Nucleated RBC Nucleated RBC % (auto) Anion Gap 18 Estim Creat Clear Calc Estimated GFR Random Glucose Lactic Acid 0.9 Calcium Total Bilirubin Direct Bilirubin AST ALT Alkaline Phosphatase Lactate Dehydrogenase 222 Total Protein Albumin Hepatitis A IgM Ab Nonreactive Hep Bs Antigen Negative Hep Bs Antibody NONREACTIVE Hep B Core Total Ab Nonreactive Hepatitis C Ab (EIA) Nonreactive 10/25/22 10/25/22 06:09 06:09 MCV 111.4 H MCH 38.0 H MCHC 34.1 RDW 14.7 Plt Count 135 L MPV 10.0 Absolute Nucleated RBC 0.000 Nucleated RBC % (auto) 0.0 Anion Gap 14 Estim Creat Clear Calc 206.3 Estimated GFR > 60 Random Glucose 88 Lactic Acid Calcium 7.4 L Total Bilirubin 3.0 H Direct Bilirubin 1.6 H AST 113 H ALT 54 H Alkaline Phosphatase 151 H Lactate Dehydrogenase Total Protein 5.8 L Albumin 2.7 L Hepatitis A IgM Ab Hep Bs Antigen Hep Bs Antibody Hep B Core Total Ab Hepatitis C Ab (EIA) Microbiology Microbiology Results: Microbiology 10/23/22 21:29 Gram Stain - Final Abdominal Fluid Routine Culture - Preliminary No growth to date. Anaerobic Culture - Preliminary No growth to date. Assessment and Plan (1) GI bleed: Status: Acute (2) Alcohol withdrawal: Status: Acute (3) Colitis: Status: Acute Plan This is a 41-year-old male with past medical history of alcohol abuse, hypertension, asthma presents to the hospital with complaints of abdominal pain as well as GI bleed found to have a following acute alcohol withdrawal continue phenobarb protocol continue thiamine and folic acid supplement monitor for withdrawal symptoms declines information/resources about abstinence abdominal pain CT concerning for acute colitis and most likely cause of pain unlikely to be pancreatitis, amylase and lipase negative continue IV ceftriaxone, flagyl paracentesis done, but sample clotted, unable to run WBC therefore unable to rule out SBP but will be on abx for colitis seen by GI s/p EGD - esophagitis, gastric polyp - rec PPI bid and outpatient colonoscopy in 2-4 weeks for follow up on colitis and rectal bleeding; biopsy results pending full liqs - advance at tolerted GI bleed/red bright blood per rectum possibly lower GI in the setting of colitis seen by GI - outpatient colonoscopy transaminitis Likely r/t etoh autoimmune markers pending hepatitis panel negative trend LFTs acute hypoxic respiratory failure BNP negative, Chest CT with no acute abnormalities no wheezing on L after procedure follow respiratory status reports h/o MOUNIKA - noncompliant with cpap asthma no acute exacerbation continue p.r.n. albuterol hypertension stable continue antihypertensives Morbid obesity BMI 33.0 r/t excess calories DVT prophylaxis: Early ambulation, SCDs attending - dr. vega patient requires ongoing inpatient hospitalization for management of abdominal pain, GI bleeding, alcohol withdrawal Time Spent With Patient Time: Total time managing care of this patient today ____ minutes. Quality Stroke Does the patient have a stroke diagnosis?: No VTE Prior VTE?: No VTE Risk Level:: Medical - moderate - high VTE Device Contraindication: N/A - Device Ordered VTE Drug Contraindication: Treatment Not Indicated
[2022-10-25] MEDS: cefTRIAXone sodium 1 GM in 0.9 % Sodium Chloride 50 ML IV (19:51)
[2022-10-26] VITALS (8 sets, daily range): BP systolic 112–142; BP diastolic 54–83; PULSE 86–100; RESP 18–20; TEMP 36.6–37.4; O2SAT 90–95
[2022-10-26] MEDS: Magnesium Hydrox/Alum Hydrox 30 ML ORAL.SUSP 15 ML PO (01:10)
[2022-10-26] MEDS: Morphine Sulfate 4 MG/ML CARTRIDGE IVPUSH ×4 (01:10→21:09)
--- NOTE | 2022-10-26 03:20 | PC.NURSE ---
Pt still with on and off RLQ pain, prn morphine 4 mg IV given with good effect, also noted pt desating at low 80s while awake and claimed some SOB, LS dim, O2 at 2L/min via NC placed and recovered to low 90s, RT paged to give albuterol PRN and tolerated, pt also c/o heartburnMD made aware, Dr. Nieto ordered for Maalox po, pt tolerated med and with favorable effect, pt slept at intervals, also noted that pt desats frequently everytime he falls asleep, to as low as 70s, recovers back to the 90s if awaken, pt denies any use of CPAP at home but has been diagnosed with MOUNIKA.
[2022-10-26] MEDS: metroNIDAZOLE/NS 500 MG/100 ML PIGGYBACK 100 MG IV ×3 (05:52→21:53)
[2022-10-26] MEDS: Omeprazole 40 MG CAPSULE.DR PO ×2 (05:52→16:19)
[2022-10-26 08:06] LABS: Hematocrit 36.1 % (42.0-52.0); Hemoglobin 12.4 g/dl (14.0-18.0); Mean Corpuscular HGB Conc 34.3 g/dl (31.0-36.0); Mean Corpuscular Hemoglobin 38.5 pg (27.0-33.0); Platelet Count 154 X10*3/uL (160-400); Red Blood Count 3.22 X10*6/uL (4.60-5.80); Red Cell Distribution Width 14.5 % (11.0-16.0); White Blood Count 8.1 X10*3/uL (4.8-10.8)
[2022-10-26 08:12] LABS: Mean Corpuscular Volume 112.1 fL (80.0-98.0)
[2022-10-26] MEDS: PHENobarbitaL 30 MG TABLET PO ×2 (08:16→21:11)
[2022-10-26] MEDS: Folic Acid 1 MG TABLET PO (08:16)
[2022-10-26] MEDS: 0.9 % Sodium Chloride Flush 3 ML SYRINGE IVFLUSH ×3 (08:16→21:17)
[2022-10-26] MEDS: amLODIPine Besylate 5 MG TABLET PO (08:16)
[2022-10-26] MEDS: Thiamine HCL 100 MG TABLET PO (08:17)
[2022-10-26] MEDS: Multivitamin TABLET 1 TAB PO (08:17)
[2022-10-26] MEDS: Magnesium Oxide 400 MG TABLET 200 MG PO (08:17)
[2022-10-26 08:30] LABS: Alanine Aminotransferase 46 U/L (0-40); Alkaline Phosphatase 145 U/L (39-117); Anion Gap 12 (12-20); Aspartate Amino Transferase 86 U/L (5-37); Bilirubin Direct 1.9 mg/dL (0.0-0.5); Bilirubin Total 3.2 mg/dL (0.0-1.0); Blood Urea Nitrogen 4 mg/dL (9-16); Calcium 8.1 mg/dL (8.4-10.2); Carbon Dioxide 28 mmol/L (22-29); Chloride 100 mmol/L (96-108); Creatinine Clr Calc Pharmacy 199.3; Estimated Glomerular Filt Rate > 60; Glucose Random 93 mg/dL (60-115); Potassium 3.8 mmol/L (3.3-5.1); Sodium 136 mmol/L (135-145); Total Protein 6.2 g/dL (6.5-8.0)
[2022-10-26] MEDS: Albuterol Sulfate 90 MCG 8 GM INHALER 2 PUFF INHALE ×2 (13:16→22:14)
--- NOTE | 2022-10-26 14:08 | HO.PM.IMPN ---
Subjective Subjective Date of Service: 10/26/22 Interval History: seen and examined this morning follow up for colitis, etoh withdrawal still with some left side abdominal pain, wants to try advancing diet Review of Systems Review of Systems: Yes all other systems are reviewed and are negative Constitutional Constitutional: Denies chills and Denies fever(s) Cardiovascular Cardiovascular: Denies chest pain and Denies palpitations Respiratory Respiratory: Denies cough Gastrointestinal Gastrointestinal: Reports abdominal pain Endocrine Endocrine: Denies palpitations Physical Exam Vital Signs: Vital Signs: Last Vital Signs Temp 99.0 F 10/26/22 11:47 Pulse 100 10/26/22 13:17 Resp 18 10/26/22 13:17 BP 128/58 L 10/26/22 11:47 Pulse Ox 94 10/26/22 11:47 O2 Del Method 10/26/22 11:47 O2 Flow Rate 2 10/26/22 11:47 BMI result Body Mass Index 33.0 Const: General: cooperative, comfortable, alert and awake Nutritional Appearance: overweight Orientation/consciousness: patient oriented x3 Resp: Effort & Inspection: normal respiratory effort and able to speak in complete sentences Auscultation: clear to auscultation bilaterally Cardio: Rate: regular rate Heart sounds: S1 normal heart sound present and S2 normal heart sound present GI: Other: mild tenderness lower abdomen, no rebound Inspection: No distended Palpation (GI): Soft to palpation Neuro: General: patient oriented x3 and CN's II-XI intact bilaterally Extrem: General: Yes no pedal edema Objective Data Active Medications Al Hydroxide/Mg Hydroxide (Magnesium Hydrox/Alum Hydrox 30 Ml Oral.Susp) 15 ml PO Q4H PRN PRN Reason: Heartburn Last Admin: 10/26/22 01:10 Dose: 15 ml Documented By: JESSICA Albuterol Sulfate (Albuterol Sulfate 90 Mcg 8 Gm Inhaler) 2 puff INHALE Q4H PRN PRN Reason: Shortness Of Breath Last Admin: 10/26/22 13:16 Dose: 2 puff Documented By: ARLET Amlodipine Besylate (Amlodipine Besylate 5 Mg Tablet) 5 mg PO DAILY [facility]; Protocol Last Admin: 10/26/22 08:16 Dose: 5 mg Documented By: DOUGLAS Folic Acid (Folic Acid 1 Mg Tablet) 1 mg PO DAILY [facility] Last Admin: 10/26/22 08:16 Dose: 1 mg Documented By: DOUGLAS Ceftriaxone Sodium 1 gm/ (Sodium Chloride) 50 mls @ 100 mls/hr IV Q24H [facility] Last Infusion: 10/25/22 20:30 Dose: 0 mls/hr Documented By: JESSICA Metronidazole (Flagyl) 500 mg in 100 mls @ 100 mls/hr IV Q8H [facility] Last Admin: 10/26/22 13:15 Dose: 100 mls/hr Documented By: DOUGLAS Magnesium Oxide (Magnesium Oxide 400 Mg Tablet) 200 mg PO DAILY [facility] Last Admin: 10/26/22 08:17 Dose: 200 mg Documented By: DOUGLAS Morphine Sulfate (Morphine Sulfate 4 Mg/Ml Cartridge) 4 mg IVPUSH Q4H PRN; Protocol PRN Reason: Pain, Severe (Pain Scale 7-10) Last Admin: 10/26/22 13:47 Dose: 4 mg Documented By: REG Multivitamins/Vitamin C (Multivitamin Tablet) 1 tab PO DAILY [facility] Last Admin: 10/26/22 08:17 Dose: 1 tab Documented By: DOUGLAS Omeprazole (Omeprazole 40 Mg Capsule.Dr) 40 mg PO BID@0630,1630 [facility] Last Admin: 10/26/22 05:52 Dose: 40 mg Documented By: JESSICA Ondansetron HCl (Ondansetron Hcl 4 Mg/2 Ml Vial) 4 mg IVPUSH Q8H PRN PRN Reason: Nausea and Vomiting Pharmacy Consult (Consult Rx Etoh Phenob Im/Po) 1 each MISCELLANE ONCE PRN; Protocol PRN Reason: Consult order Phenobarbital (Phenobarbital 30 Mg Tablet) 30 mg PO BID [facility] Stop: 10/27/22 21:01 Last Admin: 10/26/22 08:16 Dose: 30 mg Documented By: DOUGLAS Phenobarbital (Phenobarbital 15 Mg Tablet) 15 mg PO DAILY [facility] Stop: 10/29/22 09:01 Sodium Chloride (0.9 % Sodium Chloride Flush 3 Ml Syringe) 3 ml IVFLUSH QSHIFT [facility] Last Admin: 10/26/22 08:16 Dose: 3 ml Documented By: DOUGLAS Thiamine HCl (Thiamine Hcl 100 Mg Tablet) 100 mg PO DAILY [facility] Last Admin: 02/11/23 08:17 Dose: 100 mg Documented By: DOUGLAS Labs 10/26/22 08:00 10/26/22 08:00 Labs: Laboratory Results - last 24 hr 10/26/22 10/26/22 08:00 08:00 MCV 112.1 H MCH 38.5 H MCHC 34.3 RDW 14.5 Plt Count 154 L MPV 10.0 Absolute Nucleated RBC 0.000 Nucleated RBC % (auto) 0.0 Anion Gap 12 Estim Creat Clear Calc 199.3 Estimated GFR > 60 Random Glucose 93 Calcium 8.1 L D Total Bilirubin 3.2 H Direct Bilirubin 1.9 H AST 86 H ALT 46 H Alkaline Phosphatase 145 H Total Protein 6.2 L Albumin 3.0 L Microbiology Microbiology Results: Microbiology 10/23/22 21:29 Gram Stain - Final Abdominal Fluid Routine Culture - Final No growth after 2 days Anaerobic Culture - Preliminary No growth to date. Assessment and Plan (1) Alcohol use disorder: Status: Acute (2) Acute respiratory failure with hypoxia: Status: Acute (3) GI bleed: Status: Acute (4) Alcohol withdrawal: Status: Acute (5) Colitis: Status: Acute Plan This is a 41-year-old male with past medical history of alcohol abuse, hypertension, asthma presents to the hospital with complaints of abdominal pain as well as GI bleed found to have a following acute alcohol withdrawal continue phenobarb protocol continue thiamine and folic acid supplement monitor for withdrawal symptoms declines information/resources about abstinence abdominal pain CT concerning for acute colitis and most likely cause of pain continue IV ceftriaxone, flagyl day 4/ paracentesis done, but sample clotted, unable to run WBC therefore unable to rule out SBP but will be on abx for colitis seen by GI s/p EGD - esophagitis, gastric polyp - rec PPI bid and outpatient colonoscopy in 2-4 weeks for follow up on colitis and rectal bleeding; biopsy results pending will advance to bland diet GI bleed/red bright blood per rectum possibly lower GI in the setting of colitis seen by GI - outpatient colonoscopy no further bleeding since admission transaminitis Likely r/t etoh autoimmune markers pending hepatitis panel negative trend LFTs acute hypoxic respiratory failure BNP negative, Chest CT with no acute abnormalities no wheezing follow respiratory status reports h/o MOUNIKA - noncompliant with cpap plan for overnight oximetery test asthma no acute exacerbation continue p.r.n. albuterol hypertension stable continue antihypertensives Morbid obesity BMI 33.0 r/t excess calories DVT prophylaxis: Early ambulation, SCDs attending - dr. Mcallister patient requires ongoing inpatient hospitalization for management of abdominal pain, GI bleeding, alcohol withdrawal - possibly home tomorrow Time Spent With Patient Time: Total time managing care of this patient today ____ minutes. Quality Stroke Does the patient have a stroke diagnosis?: No VTE Prior VTE?: No VTE Risk Level:: Medical - moderate - high VTE Device Contraindication: N/A - Device Ordered VTE Drug Contraindication: Treatment Not Indicated
--- NOTE | 2022-10-26 15:39 | MHC.RECOVRN ---
This literary writer met w/ patient, patient was alert, oriented, sitting in bed. Patient reports drinking since early . Patient states at age [age] years old had investigated ways to stop/decrease drinking. Patient reports would quit annually for lent since early . Patient states for many years drank beer, patient reports drinking daily Vodka for past several years. Patient reports recent hospitalization has discussed ETOH use with father, mother, cousins, peers. Patient reports with cirrhosis diagnosis, feels scared to continue to drink and feels committed to quitting. Patient reports family hx of ETOH cirrhosis in father, cousin. Patient reports in the past PCP had prescribed medications to help with withdrawal, patient could not recall name. Patient states it did not help, increased tremors. Reviewed recovery supports at the bedside, patient agreeable to review resources provided. Patient not interested in tennis coach, BARRON at this time, encouraged to call [facility] with any questions/concerns.
[2022-10-26] MEDS: cefTRIAXone sodium 1 GM in 0.9 % Sodium Chloride 50 ML IV (21:13)
[2022-10-26 23:59] LABS: OBS Int Ctl Valid YES; OBS1 NEGATIVE (NEGATIVE)
[2022-10-27] MEDS: Morphine Sulfate 4 MG/ML CARTRIDGE IVPUSH ×4 (03:00→21:02)
[2022-10-27] MEDS: Omeprazole 40 MG CAPSULE.DR PO ×2 (05:15→15:19)
[2022-10-27] MEDS: metroNIDAZOLE/NS 500 MG/100 ML PIGGYBACK 100 MG IV ×3 (05:15→21:50)
[2022-10-27 05:34] VITALS: O2SAT 90
[2022-10-27 05:37] LABS: ABG Base Excess 9.2 mmol/L; ABG HCO3 34 mmol/L (22-26); ABG pCO2 46 mmHg (32-45); ABG pH 7.47 (7.35-7.45); ABG pO2 61 mmHg (83-108)
[2022-10-27] MEDS: PHENobarbitaL 30 MG TABLET PO ×2 (08:00→21:02)
[2022-10-27] MEDS: amLODIPine Besylate 5 MG TABLET PO (08:00)
[2022-10-27] MEDS: Folic Acid 1 MG TABLET PO (08:00)
[2022-10-27] MEDS: Thiamine HCL 100 MG TABLET PO (08:00)
[2022-10-27] MEDS: Multivitamin TABLET 1 TAB PO (08:01)
[2022-10-27] MEDS: 0.9 % Sodium Chloride Flush 3 ML SYRINGE IVFLUSH ×2 (08:01→15:23)
[2022-10-27] MEDS: Magnesium Oxide 400 MG TABLET 200 MG PO (08:01)
[2022-10-27 10:31] LABS: ABG Refer to POC result
[2022-10-27 11:11] VITALS: BP 131/68; PULSE 97; RESP 16; TEMP 37; O2SAT 96
--- NOTE | 2022-10-27 14:13 | MHC.RECOVRN ---
This database report writer met w/ patient, to f/u with any questions/concerns patient may have after reviewing recovery resources, patient states is all set, patient resting comfortably.
[2022-10-27 15:02] VITALS: BP 141/86; PULSE 95; RESP 18; TEMP 37.1; O2SAT 97
--- NOTE | 2022-10-27 19:15 | PC.RT ---
Pt refused NOC cpap
[2022-10-27 20:00] VITALS: BP 110/54; PULSE 104; RESP 19; TEMP 36.7; O2SAT 90
[2022-10-27] MEDS: Artificial Tears 15 ML DROPS 2 DROP EYE-BOTH (21:08)
[2022-10-27] MEDS: cefTRIAXone sodium 1 GM in 0.9 % Sodium Chloride 50 ML IV (21:08)
[2022-10-28] VITALS (7 sets, daily range): BP systolic 111–139; BP diastolic 60–75; PULSE 79–106; RESP 17–20; TEMP 36.7–37.4; O2SAT 89–97
[2022-10-28] MEDS: Morphine Sulfate 4 MG/ML CARTRIDGE IVPUSH ×3 (02:09→11:01)
[2022-10-28] MEDS: 0.9 % Sodium Chloride Flush 3 ML SYRINGE IVFLUSH ×2 (02:12→08:06)
[2022-10-28] MEDS: Omeprazole 40 MG CAPSULE.DR PO (06:15)
[2022-10-28] MEDS: metroNIDAZOLE/NS 500 MG/100 ML PIGGYBACK 100 MG IV ×2 (06:15→13:38)
[2022-10-28] MEDS: Artificial Tears 15 ML DROPS 2 DROP EYE-BOTH ×2 (06:18→11:01)
[2022-10-28] MEDS: amLODIPine Besylate 5 MG TABLET PO (08:05)
[2022-10-28] MEDS: Thiamine HCL 100 MG TABLET PO (08:05)
[2022-10-28] MEDS: PHENobarbitaL 15 MG TABLET PO (08:05)
[2022-10-28] MEDS: Folic Acid 1 MG TABLET PO (08:05)
[2022-10-28] MEDS: Multivitamin TABLET 1 TAB PO (08:06)
[2022-10-28] MEDS: Magnesium Oxide 400 MG TABLET 200 MG PO (08:06)
[2022-10-28] MEDS: Albuterol Sulfate 90 MCG 8 GM INHALER 2 PUFF INHALE (08:18)
[2022-10-28 11:38] LABS: IgA 651 mg/dL (47-310); IgG 1759 mg/dL (600-1640)
--- NOTE | 2022-10-28 12:49 | PM.CNPUL ---
History of Present Illness History of Present Illness Consult date: 10/28/22 Chief complaint: Colitis, GI Bleed Narrative: This is an inpatient pulmonary consultation. The patient is a 41-year-old gentleman with past medical history of alcohol abuse, asthma, hypertension presents to the hospital with complaints of abdominal pain as well as GI bleed.? Patient reports that he started having consistent bright red blood per rectum with every bowel movement for the past 2 weeks, stopped about 2 days ago then subsequently developed abdominal pain in the lower abdomen bilaterally about 4 days ago.? Patient reports the pain was intermittent but has been constant today, the pain is 7/10, nonradiating, no relieving or exacerbating factors.?On arrival to the ED patient found to have a heart rate of 108, satting 94% on room air, but did drop to 83% while in the ED Labs are significant for WBC count of 11.8, hemoglobin of 13.2, hematocrit 37.8, PT of 15.1, INR of 1.3, calcium 7.8, total bili of 2.2, AST of 234, ALT of 89, alk-phos of 199, troponin less than 3.5, albumin of 3.4, UA shows trace leukocyte Estrace with no WBC, BNP of 56. The patient was admitted to the hospital. He was evaluated for his GI bleed with an endoscopy. He tolerated that well. He was noted to be hypoxic during the hospitalizations. The hypoxia primarily while sleeping. He was empirically placed on CPAP. The patient does have daytime drowsiness with an [place] score elevated 12/24 no also has headaches in the morning. He has been told about having sleep apnea in the past although he has never had a sleep study. Current the patient was able to be weaned off the oxygen and is currently on room air. It runs a little on the low side. He did have a CT scan of the chest that I personally reviewed demonstrating no evidence of any acute lung disease. The patient does need a formal evaluation with pulmonary function studies and also a sleep study at this time. He will need to have that arranged as an outpatient however. Review of Systems Review of Systems: Constitutional: No Fever, No Chills + daytime drowsiness Cardiovascular: No Chest Pain, No SOB Respiratory: No Cough, No Dyspnea Gastrointestinal: Positive Nausea, No Vomiting, positive bloody Diarrhea, pop abdominal Pain Genitourinary: No Dysuria, No Hematuria Musculoskeletal: No joint pain, No Myalgias, No Joint Swelling Skin: No Skin lacerations, No rash Neuro: No Weakness, No Numbness, No Dizziness, No Headache Yes all other systems are reviewed and are negative [facility] Past Medical History Medical History (Updated 10/28/22 @ 12:53 by Tato Gil MD) Alcohol abuse Asthma COPD (chronic obstructive pulmonary disease) HTN (hypertension) Surgical History Surgical History No pertinent past surgical history Social History Social History Household Members: Family Housing: House Do you presently have visiting nurse or other home services: No Alcohol intake: current Alcohol intake frequency: other Alcohol type: beer, wine and hard liquor Patient Tobacco Use Status: Former Tobacco user Quit Date: decades ago Substance Use Type: Marijuana service: No Current occupational status: employed Meds Allergies Allergy/AdvReac Type Severity Reaction Status Date / Time No Known Allergies Allergy Verified 05/04/21 14:57 Active Medications: Current Medications Al Hydroxide/Mg Hydroxide (Magnesium Hydrox/Alum Hydrox 30 Ml Oral.Susp) 15 ml PO Q4H PRN PRN Reason: Heartburn Last Admin: 10/26/22 01:10 Dose: 15 ml Albuterol Sulfate (Albuterol Sulfate 90 Mcg 8 Gm Inhaler) 2 puff INHALE Q4H PRN PRN Reason: Shortness Of Breath Last Admin: 10/28/22 08:18 Dose: 2 puff Amlodipine Besylate (Amlodipine Besylate 5 Mg Tablet) 5 mg PO DAILY [facility]; Protocol Last Admin: 10/28/22 08:05 Dose: 5 mg Artificial Tears (Artificial Tears 15 Ml Drops) 2 drop EYE-BOTH Q4H PRN PRN Reason: Dry Eyes Last Admin: 10/28/22 11:01 Dose: 2 drop Folic Acid (Folic Acid 1 Mg Tablet) 1 mg PO DAILY [facility] Last Admin: 10/28/22 08:05 Dose: 1 mg Ceftriaxone Sodium 1 gm/ (Sodium Chloride) 50 mls @ 100 mls/hr IV Q24H [facility] Stop: 10/28/22 20:59 Last Infusion: 10/27/22 21:51 Dose: Infused Metronidazole (Flagyl) 500 mg in 100 mls @ 100 mls/hr IV Q8H [facility] Stop: 10/28/22 21:59 Last Infusion: 10/28/22 07:28 Dose: Infused Magnesium Oxide (Magnesium Oxide 400 Mg Tablet) 200 mg PO DAILY [facility] Last Admin: 10/28/22 08:06 Dose: 200 mg Morphine Sulfate (Morphine Sulfate 4 Mg/Ml Cartridge) 4 mg IVPUSH Q4H PRN; Protocol PRN Reason: Pain, Severe (Pain Scale 7-10) Last Admin: 10/28/22 11:01 Dose: 4 mg Multivitamins/Vitamin C (Multivitamin Tablet) 1 tab PO DAILY [facility] Last Admin: 10/28/22 08:06 Dose: 1 tab Omeprazole (Omeprazole 40 Mg Capsule.Dr) 40 mg PO BID@0630,1630 [facility] Last Admin: 10/28/22 06:15 Dose: 40 mg Ondansetron HCl (Ondansetron Hcl 4 Mg/2 Ml Vial) 4 mg IVPUSH Q8H PRN PRN Reason: Nausea and Vomiting Pharmacy Consult (Consult Rx Etoh Phenob Im/Po) 1 each MISCELLANE ONCE PRN; Protocol PRN Reason: Consult order Phenobarbital (Phenobarbital 15 Mg Tablet) 15 mg PO DAILY [facility] Stop: 10/29/22 09:01 Last Admin: 10/28/22 08:05 Dose: 15 mg Sodium Chloride (0.9 % Sodium Chloride Flush 3 Ml Syringe) 3 ml IVFLUSH QSHIFT [facility] Last Admin: 10/28/22 08:06 Dose: 3 ml Thiamine HCl (Thiamine Hcl 100 Mg Tablet) 100 mg PO DAILY [facility] Last Admin: 10/28/22 08:05 Dose: 100 mg Home Medications Medication Instructions Recorded Confirmed Last Taken Type albuterol sulfate 90 mcg/actuation 2 puff inhalation Q4-6H PRN 10/23/22 10/23/22 Unknown History aerosol inhaler (ProAir HFA) Shortness Of Breath amlodipine 5 mg tablet 5 mg PO DAILY 10/23/22 10/23/22 Unknown History folic acid 1 mg tablet 1 mg PO DAILY 10/23/22 10/23/22 Unknown History magnesium 250 mg tablet 250 mg PO DAILY 10/23/22 10/23/22 Unknown History multivitamin 1 tab PO DAILY 10/23/22 10/23/22 Unknown History Physical Exam Vital Signs: Vital Signs: Last Vital Signs Temp 99.4 F 10/28/22 11:19 Pulse 93 10/28/22 11:19 Resp 18 10/28/22 11:19 BP 139/75 10/28/22 11:19 Pulse Ox 92 10/28/22 11:19 O2 Del Method 10/28/22 11:19 O2 Flow Rate 2 10/28/22 08:00 BMI result Body Mass Index 33.0 Const: General: cooperative, comfortable, alert and awake Nutritional Appearance: overweight Orientation/consciousness: patient oriented x3 Resp: Effort & Inspection: normal respiratory effort and able to speak in complete sentences Auscultation: clear to auscultation bilaterally Cardio: Rate: regular rate Heart sounds: S1 normal heart sound present and S2 normal heart sound present GI: Other: mild tenderness lower abdomen, no rebound Inspection: No distended Palpation (GI): Soft to palpation Neuro: General: patient oriented x3 and CN's II-XI intact bilaterally Extrem: General: Yes no pedal edema Results Laboratory Findings 10/26/22 08:00 10/26/22 08:00 ABG, PT/INR, D-dimer: PT/INR, D-dimer PT 15.1 SEC (10.0-13.1) H 10/23/22 13:28 INR 1.3 (0.9-1.1) H 10/23/22 13:28 Abnormal lab findings: Abnormal Labs 10/23/22 10/23/22 10/23/22 13:28 13:28 13:28 WBC 11.8 H RBC 3.44 L Hgb 13.2 L Hct 37.8 L MCV 109.9 H MCH 38.4 H Plt Count 157 L MPV 9.2 L Neut % (Auto) 75.6 H Lymph % (Auto) 10.6 L [place] % (Auto) 12.4 H Lymph # (Auto) [place] # (Auto) 1.5 H Abs Immat Gran (auto) 0.05 H Absolute Neuts (auto) 8.9 H PT 15.1 H INR 1.3 H ABG pH at Pt Temp ABG pCO2 at Pt Temp ABG pO2 at Pt Temp ABG HCO3 BUN 4 L Calcium 7.8 L Total Bilirubin 2.2 H Direct Bilirubin 1.2 H AST 234 H ALT 89 H Alkaline Phosphatase 199 H Total Protein Albumin 3.4 L Ur Leukocyte Esterase U Benzodiazepines Scrn IgG Total IgA Total 10/23/22 10/23/22 10/23/22 17:28 17:28 21:16 WBC RBC Hgb Hct MCV MCH Plt Count MPV Neut % (Auto) Lymph % (Auto) [place] % (Auto) Lymph # (Auto) [place] # (Auto) Abs Immat Gran (auto) Absolute Neuts (auto) PT INR ABG pH at Pt Temp ABG pCO2 at Pt Temp ABG pO2 at Pt Temp ABG HCO3 BUN Calcium Total Bilirubin Direct Bilirubin AST ALT Alkaline Phosphatase Total Protein Albumin Ur Leukocyte Esterase Trace H U Benzodiazepines Scrn POSITIVE H IgG Total 1759 H IgA Total 651 H 10/24/22 10/24/22 10/25/22 05:53 05:53 06:09 WBC RBC 3.19 L Hgb 12.2 L Hct 35.5 L MCV 111.3 H MCH 38.2 H Plt Count 144 L MPV Neut % (Auto) 74.6 H Lymph % (Auto) 9.5 L [place] % (Auto) 14.3 H Lymph # (Auto) 0.9 L [place] # (Auto) 1.3 H Abs Immat Gran (auto) Absolute Neuts (auto) PT INR ABG pH at Pt Temp ABG pCO2 at Pt Temp ABG pO2 at Pt Temp ABG HCO3 BUN 5 L 6 L Calcium 7.7 L 7.4 L Total Bilirubin 3.0 H Direct Bilirubin 1.6 H AST 113 H ALT 54 H Alkaline Phosphatase 151 H Total Protein 5.8 L Albumin 2.7 L Ur Leukocyte Esterase U Benzodiazepines Scrn IgG Total IgA Total 10/25/22 10/26/22 10/26/22 06:09 08:00 08:00 WBC RBC 3.08 L 3.22 L Hgb 11.7 L 12.4 L Hct 34.3 L 36.1 L MCV 111.4 H 112.1 H MCH 38.0 H 38.5 H Plt Count 135 L 154 L MPV Neut % (Auto) Lymph % (Auto) [place] % (Auto) Lymph # (Auto) [place] # (Auto) Abs Immat Gran (auto) Absolute Neuts (auto) PT INR ABG pH at Pt Temp ABG pCO2 at Pt Temp ABG pO2 at Pt Temp ABG HCO3 BUN 4 L Calcium 8.1 L D Total Bilirubin 3.2 H Direct Bilirubin 1.9 H AST 86 H ALT 46 H Alkaline Phosphatase 145 H Total Protein 6.2 L Albumin 3.0 L Ur Leukocyte Esterase U Benzodiazepines Scrn IgG Total IgA Total 10/27/22 05:26 WBC RBC Hgb Hct MCV MCH Plt Count MPV Neut % (Auto) Lymph % (Auto) [place] % (Auto) Lymph # (Auto) [place] # (Auto) Abs Immat Gran (auto) Absolute Neuts (auto) PT INR ABG pH at Pt Temp 7.47 H ABG pCO2 at Pt Temp 46 H ABG pO2 at Pt Temp 61 L ABG HCO3 34 H BUN Calcium Total Bilirubin Direct Bilirubin AST ALT Alkaline Phosphatase Total Protein Albumin Ur Leukocyte Esterase U Benzodiazepines Scrn IgG Total IgA Total Microbiology: Microbiology 10/23/22 21:29 Abdominal Fluid Gram Stain - Final 10/23/22 21:29 Abdominal Fluid Routine Culture - Final No growth after 2 days 10/23/22 21:29 Abdominal Fluid Anaerobic Culture - Preliminary No growth to date. Assessment and Plan (1) Acute respiratory failure with hypoxia: Status: Acute (2) MOUNIKA (obstructive sleep apnea): Status: Acute (3) COPD (chronic obstructive pulmonary disease): Status: Acute Plan start Breo ARNOL as needed Keep POX>88% Will need to use oxygen at night if his overnight oximetry demonstrates sats 88% or below for a least 5 minutes Awaiting overnight oximetry Will need outpt PFTs and out pt inlab PSG Time Spent With Patient Time: Total time managing care of this patient today ____ minutes. Procedures Date of Service Date of Service: 10/28/22
--- NOTE | 2022-10-28 14:40 | MHC.CM.PN ---
Addendum entered by Keli Levin 10/28/22 15:31: Patient is discharged today to home self care. He has arranged for transportation home. Original Note: Met with Patient this afternoon. He reports that he does not have a PCP. [facility] PCP info pamphlet has been provided to the patient. DP home self care. Patient will arrange for transportation at discharge.
--- NOTE | 2022-10-28 15:19 | P.DS_ITS ---
DS: Providers Provider Date of Service: 10/28/22 Date of admission: 10/23/22 20:38 Primary care physician: None Physician Consults: 10/23/22 20:35 Consult to Gastroenterology Routine Consulting Provider: Gillian Varela Reason for consultation: GI bleed, Has provider been notified: No 10/25/22 13:50 Consult to Care Team Routine Comment: Reason for consultation: etoh abuse 10/27/22 09:10 Consult to Pulmonology Routine Consulting Provider: Ella Yost Reason for consultation: hypoxia, eval overnight oximetery test Has provider been notified: No Attending physician on discharge: Endy Nava Discharging clinician: Cintia Gil DS: Diagnosis Discharge Diagnosis (1) Acute respiratory failure with hypoxia: Status: Acute (2) MOUNIKA (obstructive sleep apnea): Status: Acute (3) COPD (chronic obstructive pulmonary disease): Status: Acute DS: Summary Hospital Course Hospital Course: History and physical as per admitting provider 41-year-old male with past medical history of alcohol abuse, asthma, hypertension presents to the hospital with complaints of abdominal pain as well as GI bleed.? Patient reports that he started having consistent bright red blood per rectum with every bowel movement for the past 2 weeks, stopped about 2 days ago then subsequently developed abdominal pain in the lower abdomen bilaterally about 4 days ago.? Patient reports the pain was intermittent but has been constant today, the pain is 7/10, nonradiating, no relieving or exacerbating factors.?Patient denies any nausea or vomiting, reports diarrhea.? Who reports daily drinking since the age of 18.? last drink was this morning.? He is experiencing withdrawal symptoms.? Patient reports abdominal distension, denies any shortness of breath, no cough, no palpitations or chest pain.? No urinary symptoms and no lower extremity edema.? On arrival to the ED patient found to have a heart rate of 108, satting 94% on room air, but did drop to 83% while in the ED. Labs are significant for WBC count of 11.8, hemoglobin of 13.2, hematocrit 37.8, PT of 15.1, INR of 1.3, calcium 7.8, total bili of 2.2, AST of 234, ALT of 89, alk-phos of 199, troponin less than 3.5, albumin of 3.4, UA shows trace leukocyte Estrace with no WBC, BNP of [address] shows no sites of active gastrointestinal bleeding, hepatosplenomegaly with hepatic steatosis, heterogeneous enhancement of the hepatic parenchyma as well as subtle contour nodularity shows early cirrhosis, mild wall thickening at the ascending colon with surrounding fat stranding potentially due to mild portal hypertension or colitis, small intraperitoneal ascites, retroperitoneal fat stranding in the upper abdomen extending into the pelvis, likely related to the ascites and hepatic abnormalities, though pancreatitis cannot be completely excluded. Chest x-ray is negative Acute alcohol withdrawal. Treated with phenobarbital protocol, thiamine and folic acid. Declined resources regarding abstinence Abdominal pain. CT concerning for acute colitis. Treated with 5 days of ceftriaxone and Flagyl. Had paracentesis done but unfortunately the sample clotted and unable to run labs for SBP however treated with ceftriaxone so should be covered. Seen evaluated by Gastroenterology, status post EGD showing esophagitis and gastric polyps. He should continue twice daily PPI and he will need an outpatient colonoscopy in 2-4 weeks. Biopsy results are pending. Patient treated with IV morphine for pain. Concerned about withdrawal. Given oxycodone 5mg to use as needed and follow up with PCP Bright red blood per rectum. Likely secondary to colitis, treated with IV antibiotics, outpatient colonoscopy Transaminitis. Likely secondary to alcohol use. Hepatitis panel negative. LFTs trending down. Acute hypoxic respiratory failure. Noncompliant with CPAP. Overnight oximetry showed hypoxia. Patient qualifies for 2 L of oxygen overnight. Asthma. No exacerbation. Continue home medications Hypertension. Stable. Continue medications. Morbid obesity. BMI 33.0. Discussed importance of weight management as this may be contributing to worsening of other comorbidities Time Spent with Patient Time attestation: Total time managing care of this patient today ____ minutes. Discharge coordination time: Greater than 30 minutes Quality: Safe Use of Opioids Does Pt have an Active Cancer Diagnosis on the Problem List?: No Quality: Stroke Does the patient have a stroke diagnosis?: No Physical Exam Vital Signs: Vital Signs: Last Vital Signs Temp 99.4 F 10/28/22 11:19 Pulse 93 10/28/22 11:19 Resp 18 10/28/22 11:19 BP 139/75 10/28/22 11:19 Pulse Ox 92 10/28/22 11:19 O2 Del Method 10/28/22 11:19 O2 Flow Rate 2 10/28/22 08:00 BMI result Body Mass Index 33.0 Appearing in no acute distress head is normocephalic atraumatic eyes pupils are PERRLA sclera is anicteric mouth throat mucous membranes are intact and moist neck is supple no lymphadenopathy, no JVD noted lung sounds are clear to auscultation heart regular rate rhythm, clear S1, S2 positive bowel sounds, abdomen is soft, nontender neuro patient is alert x3, no focal deficits DS: Data Data Completed and Pending Completed studies during hospitalization [Text1]: Pending at discharge 10/24/22 16:22 Surgical [PTH] Routine Labs on day of discharge: Laboratory Results - last 24 hr 10/23/22 21:16 IgG Total 1759 H IgA Total 651 H IgM 134 Preliminary micro results at discharge 10/23/22 21:29 Anaerobic Culture - Preliminary Abdominal Fluid No growth to date. Discharge Plan Discharge Anticipated Discharge Date/Time: 10/28/22 14:57 Patient Disposition: Home, Self-Care Discharge Diagnosis: Acute alcohol withdrawal Abdominal pain GI bleed Transaminitis Acute hypoxic respiratory failure Referrals: Gillian Varela MD [Physician] - 1 Week (colonoscopy ) Discharge Medications: New omeprazole 40 mg Capsule,Delayed Release(Dr/Ec) 40 mg PO BID@0630,1630 Qty: 60 0RF folic acid 1 mg Tablet 1 mg PO DAILY Qty: 30 0RF thiamine mononitrate (vit B1) 100 mg Tablet 100 mg PO DAILY Qty: 30 0RF oxycodone 5 mg capsule 5 mg PO Q6H PRN (Reason: pain) Qty: 10 0RF Continued multivitamin Tablet 1 tab PO DAILY amlodipine 5 mg Tablet 5 mg PO DAILY folic acid 1 mg Tablet 1 mg PO DAILY magnesium 250 mg Tablet 250 mg PO DAILY albuterol sulfate [ProAir HFA] 90 mcg/actuation Hfa Aerosol Inhaler 2 puff INHALATION Q4-6H PRN (Reason: Shortness Of Breath) Discharge Orders: Discharge Order (Routine); Ordered 10/28/22 Ordered By: Cintia Gil Diet: Advance to usual diet Activity on Discharge: As tolerated Stand Alone Forms: Patient Portal Discharge page, Work/School Release Care Plan Goals: Do not use tobacco with oxygen on Do not drink alcohol Health Concerns: Acute alcohol withdrawal Abdominal pain GI bleed Transaminitis Acute hypoxic respiratory failure Plan of Treatment: Follow-up with starter mechanic for colonoscopy in 2-4 weeks You have been started on nighttime oxygen, 2 L Need to schedule an appointment for a sleep study Assessment: See discharge summary
[2022-10-29 12:13] LABS: Anti Nuclear Antibody Screen NEGATIVE (NEGATIVE)
[2022-10-29 22:39] LABS: IgM 134 mg/dL (50-300); Liver Kidney Microsomal Ab <=20.0 U (<=20.0)
[2022-10-31 00:24] LABS: Smooth Muscle Antibody <20 U (<20)
== END 2022-10-28 18:20 | disposition home or self-care (01) | DRG 392 ==
LOC: HO.ED 20:15 → HO.EDOVER 20:48 → HO.IMC 23:59
PROVIDERS: Internal Medicine; Nurse Practitioner Family; Physician Assistant Medical; Admitting Provider Internal Medicine; Emergency Provider Emergency Medicine Emergency Medical Services; Visit Provider Nurse Practitioner Acute Care
PROC: 0DJ08ZZ Inspection of Upper Intestinal Tract, Via Natural or Artificial Opening Endoscopic (ICD-10-PCS; CPT 43235; principal; 2022-10-24 15:40)
DX: K52.9 Noninfective gastroenteritis and colitis, unspecified (principal); F10.139 Alcohol abuse with withdrawal, unspecified; K76.6 Portal hypertension; K62.5 Hemorrhage of anus and rectum; Y90.8 Blood alcohol level of 240 mg/100 ml or more; E66.01 Morbid (severe) obesity due to excess calories; Z68.33 Body mass index [BMI] 33.0-33.9, adult; G47.33 Obstructive sleep apnea (adult) (pediatric); K20.90 Esophagitis, unspecified without bleeding; K31.89 Other diseases of stomach and duodenum; I10 Essential (primary) hypertension; K31.7 Polyp of stomach and duodenum; J44.9 Chronic obstructive pulmonary disease, unspecified; Z20.822 Contact with and (suspected) exposure to COVID-19; Z87.891 Personal history of nicotine dependence; Z79.899 Other long term (current) drug therapy
CPT/HCPCS: 0241U; 36415; 36600; 71045; 71250; 74178; 76705; 80048; 80076; 80307; 81001; 82042; 82077; 82140; 82150; 82272; 82784; 82803; 82945; 83605; 83615; 83690; 83735; 83880; 83986; 84157; 84484; 85025; 85027; 85610; 86015; 86038; 86039; 86376; 86704; 86706; 86709; 86803; 87070; 87073; 87205; 87340; 88305; 88342; 89051; 93005; 94664; 94762; 99285; J0696; J1170; J2250; J2270; J2543; J2560; J3010; Q9967

== ENCOUNTER 2022-11-03 10:58 | Emergency (ER) | payer OTHER, SELFPAY ==
--- NOTE | ~2022-11-03 | XR_ITS ---
EXAMINATION: XR ANKLE, RIGHT CLINICAL INFORMATION: Fracture COMPARISON: None TECHNIQUE: AP, lateral, and mortise views of the right ankle. FINDINGS: Marked lateral ankle soft tissue swelling. There is a comminuted mildly displaced fracture of the distal fibular meta-epiphysis, with intra-articular extension. Mild lateral angulation of the distal bone. Apparent mild asymmetric ankle mortise, could be related to positioning/technique. No definite medial malleolar or posterior malleolar tibial fracture is seen. Small tibiotalar joint effusion. Talar dome, anterior calcaneal process, fifth metatarsal base appears intact.. XR/XR ankle RT min 3V IMPRESSION: Comminuted mildly displaced distal fibular meta-epiphysis intra-articular fracture. Question mild asymmetric ankle mortise, which could be technical. Soft tissue swelling.
[2022-11-03 11:03] VITALS: BP 130/71; PULSE 94; RESP 18; TEMP 37.2; O2SAT 98; BMI 33.0
[2022-11-03 12:20] LABS: Hematocrit 36.5 % (42.0-52.0); Hemoglobin 12.3 g/dl (14.0-18.0); Mean Corpuscular HGB Conc 33.7 g/dl (31.0-36.0); Mean Corpuscular Hemoglobin 37.4 pg (27.0-33.0); Platelet Count 408 X10*3/uL (160-400); Red Blood Count 3.29 X10*6/uL (4.60-5.80); Red Cell Distribution Width 15.3 % (11.0-16.0); White Blood Count 10.5 X10*3/uL (4.8-10.8)
[2022-11-03 12:21] LABS: Mean Corpuscular Volume 110.9 fL (80.0-98.0)
[2022-11-03 12:43] LABS: Alanine Aminotransferase 43 U/L (0-40); Albumin Level 3.2 g/dL (3.5-5.0); Alkaline Phosphatase 173 U/L (39-117); Anion Gap 14 (12-20); Aspartate Amino Transferase 195 U/L (5-37); Bilirubin Direct 0.9 mg/dL (0.0-0.5); Bilirubin Total 1.6 mg/dL (0.0-1.0); Blood Urea Nitrogen < 3 mg/dL (9-16); Calcium 7.9 mg/dL (8.4-10.2); Carbon Dioxide 28 mmol/L (22-29); Chloride 103 mmol/L (96-108); Creatinine Clr Calc Pharmacy 199.3; Estimated Glomerular Filt Rate > 60; Glucose Random 103 mg/dL (60-115); Potassium 4.2 mmol/L (3.3-5.1); Sodium 141 mmol/L (135-145); Total Protein 6.6 g/dL (6.5-8.0)
--- NOTE | 2022-11-03 14:21 | ED.GENADULT ---
HPI - General Adult General Chief complaint: General Medical Stated complaint: fall 11/02/22, R ankle inj Time Seen by Provider: 11/03/22 14:20 History of Present Illness HPI narrative: Patient with 2 complaints 1st complaint is he fell yesterday injuring his ankle, right ankle Other complaint is he was recently discharged from the hospital with some liver issues, cirrhosis, and as well he has had peripheral edema affecting his legs for some time now He has not established a primary care doctor or a radiation officer He denies any fever he denies any abdominal pain no vomiting he is tolerating p.o., denies any bleeding from the rectum or no bloody vomitus, he has no shortness of breath no chest pain no difficulty breathing Related Data Home Medications Medication Instructions Recorded Confirmed albuterol sulfate 90 mcg/actuation 2 puff inhalation Q4-6H PRN 10/23/22 10/23/22 aerosol inhaler (ProAir HFA) Shortness Of Breath amlodipine 5 mg tablet 5 mg PO DAILY 10/23/22 10/23/22 folic acid 1 mg tablet 1 mg PO DAILY 10/23/22 10/23/22 magnesium 250 mg tablet 250 mg PO DAILY 10/23/22 10/23/22 multivitamin 1 tab PO DAILY 10/23/22 10/23/22 Previous Rx's Medication Instructions Recorded folic acid 1 mg tablet 1 mg PO DAILY #30 tabs 10/28/22 omeprazole 40 mg capsule,delayed 40 mg PO BID@0630,1630 #60 caps 10/28/22 release oxycodone 5 mg capsule 5 mg PO Q6H PRN pain #10 caps 10/28/22 thiamine mononitrate (vit B1) 100 100 mg PO DAILY #30 tabs 10/28/22 mg tablet oxycodone 5 mg tablet 5 mg PO Q8H #10 tabs 11/03/22 Allergies Allergy/AdvReac Type Severity Reaction Status Date / Time No Known Allergies Allergy Verified 05/04/21 14:57 [facility] Past Medical History Source: nursing notes reviewed Medical History (Updated 11/04/22 @ 00:00 by Elvira Lugo) Alcohol abuse Asthma COPD (chronic obstructive pulmonary disease) HTN (hypertension) Surgical History No pertinent past surgical history Social History Social History Household Members: Family Housing: House Do you presently have visiting nurse or other home services: No Alcohol intake: current Alcohol intake frequency: other Alcohol type: beer, wine and hard liquor Patient Tobacco Use Status: Former Tobacco user Quit Date: decades ago Substance Use Type: Marijuana Advance Directives: Yes Advance Directives on File: Yes Advance Directives Date on File: 10/23/22 service: No Current occupational status: employed Physical Exam ED Vital Signs: Vital Signs - 24 hr 11/03/22 11:03 11/03/22 15:32 Temperature 99.0 F 98.3 F Pulse Rate 94 92 Respiratory Rate 18 18 Blood Pressure 130/71 153/78 H Pulse Oximetry 98 96 Oxygen Delivery Method Room Air Room Air BMI result Body Mass Index 33.0 General appearance no acute distress Head normocephalic atraumatic Neck is supple Chest clear to auscultation bilateral no adventitious sounds The abdomen soft nontender no rebound no guarding The back full range of motion Extremities the right ankle is tender and swollen and ecchymotic, patient is very uncomfortable putting any weight on it, skin is intact and neurovascular intact distal Other extremities normal Course Course Course Narrative: Patient is treated with walking boot and crutches for his right ankle fracture X-ray of the right ankle showed a comminuted mildly displaced distal fibular meta epiphysis intra-articular fracture with a question of an asymmetric mortise I texted orthopedic physician rehabilitation assistant adriaan who said they could follow this patient in the office and he will call He is advised to be as nonweightbearing as possible and is given a walking boot and crutches, it may not be possible for him to walk without putting some weight on it, he has been walking on it since yesterday His problem with the edema in his legs has been stable for many weeks, there is no new or acute change Labs were checked, on CBC platelets were mildly elevated at 408, patient has no complaint of bleeding or clotting or rash Chemistry showed decrease in albumin to 3.2, bilirubin , no other significant changes in liver function tests A patient is not experiencing any symptoms no vomiting no fever no abdominal pain no bleeding from rectum or stool He is advised to find both the GI doctor and a primary doctor, he was given the phone number of a GI doctor on discharge from the hospital and he is advised to call Medications Administered Discontinued Medications Generic Name Dose Route Start Last Admin Trade Name Adrian PRN Reason Stop Dose Admin Oxycodone HCl 5 mg 11/03/22 17:12 11/03/22 17:27 Oxycodone Hcl Immed Release 5 Mg Tablet PO 11/03/22 17:13 5 mg ONCE ONE Administration Medical Decision Making Lab Data MDM Lab Attestation statement: I reviewed the patient's lab results. 11/03/22 12:08 11/03/22 12:08 Labs: Lab Results 11/03/22 11/03/22 Range/Units 12:08 12:08 WBC 10.5 (4.8-10.8) X10*3/uL RBC 3.29 L (4.60-5.80) X10*6/uL Hgb 12.3 L (14.0-18.0) g/dl Hct 36.5 L (42.0-52.0) % MCV 110.9 H (80.0-98.0) fL MCH 37.4 H (27.0-33.0) pg MCHC 33.7 (31.0-36.0) g/dl RDW 15.3 (11.0-16.0) % Plt Count 408 H D (160-400) X10*3/uL MPV 9.0 L (9.4-12.4) fL Absolute Nucleated RBC 0.000 (0.0-0.012) X10*3/uL Nucleated RBC % (auto) 0.0 (0.0-0.2) /100WBC Sodium 141 (135-145) mmol/L Potassium 4.2 (3.3-5.1) mmol/L Chloride 103 (96-108) mmol/L Carbon Dioxide 28 (22-29) mmol/L Anion Gap 14 (12-20) BUN < 3 L (9-16) mg/dL Creatinine 0.59 (0.5-1.4) mg/dL Estim Creat Clear Calc 199.3 Estimated GFR > 60 Random Glucose 103 (60-115) mg/dL Calcium 7.9 L (8.4-10.2) mg/dL Total Bilirubin 1.6 H (0.0-1.0) mg/dL Direct Bilirubin 0.9 H (0.0-0.5) mg/dL AST 195 H (5-37) U/L ALT 43 H (0-40) U/L Alkaline Phosphatase 173 H (39-117) U/L Total Protein 6.6 (6.5-8.0) g/dL Albumin 3.2 L (3.5-5.0) g/dL Discharge Plan Discharge Clinical Impression: Ankle fracture, right, Cirrhosis, Leg edema Patient Disposition: Home, Self-Care Additional Instructions: Follow with orthopedist for evaluation and treatment of the right ankle fracture, this was discussed with physician rehabilitation assistant adriana I gave you the number of a GI doctor from the hospital to follow-up for the recommended colonoscopy and for treatment of your cirrhosis It is also very important that you get a primary care doctor, you can call [facility], you can call the back of her insurance card, and we gave you a sheet of names The edema in her legs is been there for some time and is the results of problems with your liver Return any time any worse condition or any concerns Prescriptions: New oxycodone 5 mg tablet 5 mg PO Q8H Qty: 10 0RF Rx Instructions: Partial Fill upon patient request. No Action multivitamin Tablet 1 tab PO DAILY amlodipine 5 mg Tablet 5 mg PO DAILY folic acid 1 mg Tablet 1 mg PO DAILY magnesium 250 mg Tablet 250 mg PO DAILY albuterol sulfate [ProAir HFA] 90 mcg/actuation Hfa Aerosol Inhaler 2 puff INHALATION Q4-6H PRN (Reason: Shortness Of Breath) omeprazole 40 mg Capsule,Delayed Release(Dr/Ec) 40 mg PO BID@0630,1630 Qty: 60 0RF folic acid 1 mg Tablet 1 mg PO DAILY Qty: 30 0RF thiamine mononitrate (vit B1) 100 mg Tablet 100 mg PO DAILY Qty: 30 0RF oxycodone 5 mg capsule 5 mg PO Q6H PRN (Reason: pain) Qty: 10 0RF Referrals: Tavares Morillo MD [Physician] - (Right ankle fracture) Gillian Varela MD [Physician] - (Follow-up colonoscopy after admission and follow-up for cirrhosis) Interventions: ED Discharge Assessment Last Done: 11/03/22 17:28 Discharge Date/Time: 11/03/22 17:31
[2022-11-03 15:32] VITALS: BP 153/78; PULSE 92; RESP 18; TEMP 36.8; O2SAT 96
[2022-11-03] MEDS: oxyCODONE HCl Immed Release 5 MG TABLET PO (17:27)
== END 2022-11-03 17:31 | disposition home or self-care (01) ==
PROVIDERS: Emergency Provider Emergency Medicine
DX: S82.891A Other fracture of right lower leg, initial encounter for closed fracture (principal); R60.0 Localized edema; W01.0XXA Fall on same level from slipping, tripping and stumbling without subsequent striking against object, initial encounter; Y93.9 Activity, unspecified; Y92.9 Unspecified place or not applicable; Y99.9 Unspecified external cause status; Z79.899 Other long term (current) drug therapy
CPT/HCPCS: 36415; 73610; 80053; 82248; 85027; 99283

== ENCOUNTER 2022-11-11 11:04 | Outpatient (REF) | payer OTHER, SELFPAY ==
--- NOTE | ~2022-11-11 | XR_ITS ---
EXAMINATION: XR ANKLE, RIGHT CLINICAL INFORMATION: Pain; follow-up distal fibular fracture. COMPARISON: Radiographs dated 11/03/2022. TECHNIQUE: AP, lateral, and mortise views of the right ankle. FINDINGS: Bony mineralization is normal. The ankle mortise is intact. There is stable alignment of an oblique, mildly angulated fracture of the distal right fibula. There is adjacent moderate soft tissue swelling. No dislocation is seen. A right ankle effusion is again noted. Boehler's angle is normal. There is no calcaneal spur. No foreign body is seen. XR/XR ankle RT min 3V IMPRESSION: There is stable alignment of a mildly displaced distal right fibular fracture. No new callus formation is seen. There is persistent adjacent soft tissue swelling.
== END 2022-11-11 11:05 | disposition home or self-care (01) ==
LOC: HO.HOSX 11:04
PROVIDERS: Visit Provider Physician Assistant
DX: M25.571 Pain in right ankle and joints of right foot (principal)
CPT/HCPCS: 73610

== ENCOUNTER 2022-11-12 13:42 | Day surgery (SDC) | payer OTHER, SELFPAY ==
[2022-11-12] VITALS (10 sets, daily range): BP systolic 135–178; BP diastolic 72–102; PULSE 85–103; RESP 16–18; TEMP 36.6–36.8; O2SAT 94–100; BMI 33.0
--- NOTE | ~2022-11-12 | FL_ITS ---
EXAMINATION: XR FLUOROSCOPY WITH IMAGES CLINICAL INFORMATION: Right ankle fracture COMPARISON: Right ankle 11/11/2022 TECHNIQUE: Fluoroscopy Supervised By: Dr. Morillo none. Fluoroscopy Time: 0.1 minutes. Cumulative Dose: 0.237 mGy. DAP: 0.28703 Gycm2. Images: 3. FINDINGS: There are 2 digital images obtained revealing lateral plate and screws stabilizing distal fibular fracture in alignment. The ankle mortise and subtalar joints are normal. FL/FL guidance in OR IMPRESSION: Status post ORIF of distal fibular fracture with lateral plate and screws. The fracture fragments are in alignment.
--- NOTE | 2022-11-12 14:26 | PC.NURSE ---
patient states stopped drinking 3 weeks ago after hospitalization.
[2022-11-12] MEDS: Lactated Ringers 1,000 ML 50 ML IVCONT (14:40)
--- NOTE | 2022-11-12 15:09 | HO.ANESPROP2 ---
HPI - Anesthesia Eval Consult details Narrative: 41 M for lateral mallelus ORIF PMFSH Active Problems Active Problems: All Active Problems (Updated 11/11/22 @ 14:20 by Esvin Rob) Fracture of distal end of fibula (Acute) Transaminitis (Acute) Past Medical History Medical History Alcohol abuse Alcohol use disorder Asthma COPD (chronic obstructive pulmonary disease) HTN (hypertension) MOUNIKA (obstructive sleep apnea) Family History Family history of problems with anesthesia: No Surgical History Surgical History No pertinent past surgical history History of Problems with Anesthesia: No Social History Social History Household Members: Family Housing: House Do you presently have visiting nurse or other home services: No Alcohol intake: current Alcohol intake frequency: other Alcohol type: beer, wine and hard liquor Patient Tobacco Use Status: Former Tobacco user Quit Date: decades ago Substance Use Type: Marijuana Substance Use Frequency: Daily Advance Directives: Yes Advance Directives on File: Yes Advance Directives Date on File: 10/23/22 Nutrition Risks: No Nutritional Risk service: No Current occupational status: employed Meds Allergies Allergy/AdvReac Type Severity Reaction Status Date / Time No Known Allergies Allergy Verified 11/12/22 13:56 Active Medications: Current Medications Lactated Ringer's (Lr) 1,000 mls @ 50 mls/hr IVCONT .Q20H YUMIKO Last Admin: 11/12/22 14:40 Dose: 50 mls/hr Home Medications Medication Instructions Recorded Confirmed Last Taken Type albuterol sulfate 90 mcg/actuation 2 puff inhalation Q4-6H PRN 10/23/22 10/23/22 Unknown History aerosol inhaler (ProAir HFA) Shortness Of Breath amlodipine 5 mg tablet 5 mg PO DAILY 10/23/22 10/23/22 Unknown History folic acid 1 mg tablet 1 mg PO DAILY 10/23/22 10/23/22 Unknown History magnesium 250 mg tablet 250 mg PO DAILY 10/23/22 10/23/22 Unknown History multivitamin 1 tab PO DAILY 10/23/22 10/23/22 Unknown History Exam Exam Date and Time: November 12, 2022 1509 Height,Weight and Vital Signs: Height 5 ft 10 in Weight 230 lb Last Vital Signs Temp 97.9 F 11/12/22 14:38 Pulse 85 11/12/22 14:38 Resp 18 11/12/22 14:38 BP 135/82 11/12/22 14:38 Pulse Ox 95 11/12/22 14:38 O2 Del Method 11/12/22 14:38 Airway Mallampati Class: II TM Dist: >3cm Neck ROM: Full Loose/Missing/Broken Teeth: No Assessment and Plan Assessment Anesthesia Assessment: Anesthesia Plan Discussed and Chart Reviewed Final Anesthetic Review Family History of Problems with Anesthesia: No History of Problems with Anesthesia: No NPO: Yes ASA Class: III Final Preanesthetic Review: No Changes in Pt Med Stat, Meds/Allgs Chart Reviewed, Consent Obtained/Reviewed and Anes Risks/Benef Reviewed Patient Risk: Intermediate Procedure Risk: Low Anesthetic Plan Anesthetic Plan: GA and Regional Block (Pop fossa block ) Disposition: Standard PACU
--- NOTE | 2022-11-12 17:13 | P.BOP_ITS ---
Brief Operative Note Date of Service: 11/12/22 Pre-op diagnosis: RIght fibula fracdure Post-op diagnosis: same Procedure: ORIF right fibular fracture Implants: [place] lateral malleolus locking plate Surgeon: Tavares Morillo MD Anesthesia: ADELAIDAA Was an Health Information Specialist used for this Procedure?: Yes Health Information Specialist: Cherrie Cat Estimated blood loss (mL): 25 Tourniquet time (min): 25 IV fluids (mL): 500 Pathology: none sent Condition: stable Disposition: PACU
[2022-11-12] MEDS: oxyCODONE HCl Immed Release 5 MG TABLET PO (17:23)
[2022-11-12] MEDS: HYDROmorphone HCl 0.5 MG/0.5 ML SYRINGE 0.25 MG IVPUSH ×2 (17:24→17:33)
--- NOTE | 2022-11-13 09:20 | W.PM.OPN ---
Operative Note Operative Note Date of Service: 11/12/22 Narrative: Date of Service: 11/12/22 Pre-op diagnosis: RIght fibula fracdure Post-op diagnosis: same Procedure: ORIF right fibular fracture Implants: [place] lateral malleolus locking plate Surgeon: Tavares Morillo MD Anesthesia: ADELAIDAA Was an Permanent Mold Supervisor used for this Procedure?: Yes Permanent Mold Supervisor: Cherrie Cat Estimated blood loss (mL): 25 Tourniquet time (min): 25 IV fluids (mL): 500 Pathology: none sent Condition: stable Disposition: PACU Procedure in detail: Patient was brought to the operating room and placed supine on the operative table. All bony prominences were well padded and a time-out was called to identify proper site proper procedure proper surgeon. IV antibiotics per weight were administered. I began by exsanguinating limb is slightly tourniquet to 300 mm Hg. I then made a standard posterolateral incision over the fibula. Full-thickness flaps were taken down to the fibular shaft and distal fibula. The fracture was identified and cleaned with a combination of curette, rongeur and irrigation. A lobster claw was used to provisionally reduce the fracture and a 6 hole distal fibular locking plate was applied using standard AO technique. Biplanar fluoroscopy was used to confirm hardware position and fracture reduction. Once I was satisfied that both of these were acceptable I irrigated copiously the syndesmosis was tested using external rotation test and was found to be stable. Therefore all instrumentation was removed and copious irrigation was performed. Absorbable suture and yesenia were used for closure and the patient was placed into sterile dressings and a well-padded posterior splint. Tourniquet was let down and the patient was extubated brought to recovery room in stable condition there were no known complications.
== END 2022-11-12 18:25 | disposition home or self-care (01) ==
PROVIDERS: Visit Provider Orthopaedic Surgery
PROC: (CPT 27792; principal; 2022-11-12 16:40)
DX: S89.301A Unspecified physeal fracture of lower end of right fibula, initial encounter for closed fracture (principal); W10.8XXA Fall (on) (from) other stairs and steps, initial encounter; Y93.01 Activity, walking, marching and hiking; Y92.9 Unspecified place or not applicable; Y99.8 Other external cause status; F10.10 Alcohol abuse, uncomplicated; J44.9 Chronic obstructive pulmonary disease, unspecified; I10 Essential (primary) hypertension; G47.33 Obstructive sleep apnea (adult) (pediatric); F12.90 Cannabis use, unspecified, uncomplicated; Z87.891 Personal history of nicotine dependence; Z79.899 Other long term (current) drug therapy
CPT/HCPCS: 27792; C1713; J0690; J1100; J1170; J2405; J2795; J3010

== ENCOUNTER → 2022-11-20 11:09 | Outpatient (BNVA) | payer OTHER, SELFPAY | PROVIDERS: Visit Provider Physician Assistant | DX: S82.831D Other fracture of upper and lower end of right fibula, subsequent encounter for closed fracture with routine healing (principal) | CPT/HCPCS: 29405 ==

== ENCOUNTER 2022-11-28 05:55 | Outpatient (REF) | payer OTHER, SELFPAY ==
--- NOTE | ~2022-11-28 | XR_ITS ---
EXAMINATION: XR ANKLE, RIGHT CLINICAL INFORMATION: Pain. COMPARISON: Prior radiographs, most recently 11/11/2022. TECHNIQUE: AP, lateral, and mortise views of the right ankle. FINDINGS: An orthopedic plate and screws are applied to the lateral malleolus. No hardware failure or loosening is seen. The previously seen lateral malleolus fracture is faintly redemonstrated. There are adjacent skin yesenia. The ankle mortise is intact. No dislocation is seen. A small right ankle joint effusion is suspected. No foreign body or soft tissue gas is seen. XR/XR ankle RT min 3V IMPRESSION: A previously noted right lateral malleolus fracture is faintly redemonstrated, in anatomic alignment. No hardware failure or loosening is noted. There is a small right ankle joint effusion.
== END 2022-11-28 05:56 | disposition home or self-care (01) ==
LOC: HO.HOSX 05:55
PROVIDERS: Visit Provider Physician Assistant
DX: S82.831D Other fracture of upper and lower end of right fibula, subsequent encounter for closed fracture with routine healing (principal); X58.XXXD Exposure to other specified factors, subsequent encounter
CPT/HCPCS: 29405; 73610

== ENCOUNTER 2022-12-26 05:36 | Outpatient (REF) | payer OTHER, SELFPAY ==
--- NOTE | ~2022-12-26 | XR_ITS ---
EXAMINATION: XR ANKLE, RIGHT CLINICAL INFORMATION: Pain COMPARISON: Previous x-ray most recent January 2023 TECHNIQUE: AP, lateral, and mortise views of the right ankle. FINDINGS: There is ORIF the distal fibular shaft fracture with plate and screws. Pubic hardware appears unchanged. Fracture line more indistinct suggestive of healing. No other fracture. The ankle mortise is normal. Normal soft tissues. XR/XR ankle RT min 3V IMPRESSION: Healing distal fibular shaft fracture.
== END 2022-12-26 05:37 | disposition home or self-care (01) ==
LOC: HO.HOSX 05:36
PROVIDERS: Visit Provider Physician Assistant
DX: S82.831D Other fracture of upper and lower end of right fibula, subsequent encounter for closed fracture with routine healing (principal); M25.571 Pain in right ankle and joints of right foot; X58.XXXD Exposure to other specified factors, subsequent encounter
CPT/HCPCS: 73610

== ENCOUNTER 2023-02-03 13:41 | Outpatient (REF) | payer OTHER, SELFPAY ==
[2023-02-03 15:39] LABS: Hematocrit 43.7 % (42.0-52.0); Hemoglobin 14.7 g/dl (14.0-18.0); Mean Corpuscular HGB Conc 33.6 g/dl (31.0-36.0); Mean Corpuscular Hemoglobin 32.4 pg (27.0-33.0); Mean Corpuscular Volume 96.3 fL (80.0-98.0); Mean Platelet Volume 9.3 fL (9.4-12.4); Platelet Count 186 X10*3/uL (160-400); Red Blood Count 4.54 X10*6/uL (4.60-5.80); Red Cell Distribution Width 16.2 % (11.0-16.0); White Blood Count 10.1 X10*3/uL (4.8-10.8)
[2023-02-03 15:50] LABS: INTERNATIONAL NORM RATIO 1.1 (0.9-1.1); Prothrombin Time 12.8 SEC (10.0-13.1)
[2023-02-03 16:33] LABS: Alanine Aminotransferase 37 U/L (0-40); Albumin Level 4.4 g/dL (3.5-5.0); Alkaline Phosphatase 100 U/L (39-117); Anion Gap 15 (12-20); Aspartate Amino Transferase 38 U/L (5-37); Bilirubin Total 1.3 mg/dL (0.0-1.0); Blood Urea Nitrogen 12 mg/dL (9-16); Calcium 9.3 mg/dL (8.4-10.2); Carbon Dioxide 25 mmol/L (22-29); Chloride 104 mmol/L (96-108); Estimated Glomerular Filt Rate > 60; Glucose Random 86 mg/dL (60-115); Potassium 3.9 mmol/L (3.3-5.1); Sodium 140 mmol/L (135-145); Total Protein 7.6 g/dL (6.5-8.0)
[2023-02-03 17:04] LABS: Folate 11.8 ng/mL (> or = 4.0); Vitamin B12 360 pg/mL (200-900); Vitamin D 25-OH Total 48.8 ng/mL (>30)
== END 2023-02-03 13:42 | disposition home or self-care (01) ==
LOC: HO.LAB 13:41
PROVIDERS: Visit Provider Internal Medicine
DX: G62.9 Polyneuropathy, unspecified (principal); R74.01 Elevation of levels of liver transaminase levels; F10.90 Alcohol use, unspecified, uncomplicated; K76.9 Liver disease, unspecified; L98.9 Disorder of the skin and subcutaneous tissue, unspecified; K62.5 Hemorrhage of anus and rectum; R53.83 Other fatigue
CPT/HCPCS: 36415; 80053; 82306; 82607; 82746; 84443; 85027; 85610

== ENCOUNTER 2023-02-05 11:06 | Outpatient (REF) | payer OTHER, SELFPAY ==
--- NOTE | ~2023-02-05 | XR_ITS ---
EXAMINATION: XR ANKLE, RIGHT CLINICAL INFORMATION: Pain COMPARISON: Previous x-ray most recent December 2012 TECHNIQUE: AP, lateral, and mortise views of the right ankle. FINDINGS: Plate and screws transfixing distal fibular shaft fracture. Question lucency adjacent to the second most superior screw. Anatomic alignment. Fracture line more indistinct with bony callus formation. No other fracture. Normal ankle mortise. Normal soft tissues. XR/XR ankle RT min 3V IMPRESSION: ORIF of healing distal fibular shaft fracture.
== END 2023-02-05 11:07 | disposition home or self-care (01) ==
LOC: HO.HOSX 11:06
PROVIDERS: Visit Provider Physician Assistant
DX: S82.831D Other fracture of upper and lower end of right fibula, subsequent encounter for closed fracture with routine healing (principal)
CPT/HCPCS: 73610

== ENCOUNTER 2023-02-06 11:00 | Outpatient (RCR) | payer OTHER, SELFPAY ==
--- NOTE | 2023-01-16 12:24 | MHC.PT.EP ---
[facility] [place] Office [place] Office [place] Office [address] Parth Crabtree [address] [phone] F: [phone] F: [phone] F: [phone] F: [phone] Physical Therapy Plan of Care Date of Evaluation: Date of Surgery: 11/12/31 Diagnosis: ORIF of upper and lower end R fibula. Assessment: Pt is a 42 y/o male referred to PT for eval and treat of ORIF of upper and lower end R fibula DOS: 11/12/22 resulting in decreased tolerance for standing, walking, negotiating curbs and stairs, squatting and heavy HH chores, as well as fitness and recreational activities of value such as golf secondary to decreased R ankle ROM and strength, decreased R knee and B hip strength, R ankle surgical healing process and pain. Pt is deemed an appropriate candidate to receive skilled PT services to address their physical impairments in order to improve their functional ability. Frequency and Duration: The patient will be seen 2 x / wk x 8 wks. Short Term Goals: Initiate Home program. R ankle full ROM achieved. Improve pain to at most 2/10; initial: 4/10. Pen Tender Goals: I with home program. PT will be abele to descend 1 fl of stairs with managed Sx; initial: unable w/o boot. Pt will be able to walk 2 blocks w/o difficulty; initial: extreme difficulty or unable. Improve LEFI questionnaire by at least 9 points in order to demonstrate improved function. Treatment Plan: Modalities to reduce pain, spasms and effusion. Manual therapy to restore motion and function. Therapeutic exercise to improve strength and flexibility. Neuromuscular re-education for posture and balance. Therapeutic activities to return to functional activities of daily living. Electronically signed by: Kamari Gongora PT. Please sign and return to therapist. Thank you for your referral.
--- NOTE | 2023-02-20 08:24 | MHC.PT.DC ---
[facility] [place] Office [place] Office [place] Office [address] Parth Crabtree [address] [phone] F: [phone] F: [phone] F: [phone] F: [phone] Physical Therapy Discharge Report Diagnosis: ORIF of upper and lower end R fibula. Date of Surgery: 11/12/31 Date of Evaluation: 01/16/23 Date of Discharge: 02/20/23 Treatments to Date: 6 Cancellations to Date: No Shows to Date: Discharge Status: Patient Elected to Stop Discharge Summary: Electronically signed by: Kamari Gongora PT. Please sign and return to therapist. Thank you for your referral.
== END 2023-02-20 08:24 | disposition home or self-care (01) ==
LOC: HO.PTCHIC 11:00
PROVIDERS: Visit Provider Physician Assistant
DX: S82.831A Other fracture of upper and lower end of right fibula, initial encounter for closed fracture (principal)
CPT/HCPCS: 97110; 97112; 97161

== ENCOUNTER 2023-03-06 07:25 | Day surgery (SDC) | payer OTHER, SELFPAY ==
--- NOTE | 2023-03-05 10:18 | P.CONAN_ITS ---
Documented by User: Keyana Cho NP 03/05/23 10:20 HPI - Anesthesia Eval Consult details Narrative: 42yo M for Colonoscopy ETOH abuse PMFSH Active Problems Active Problems: All Active Problems (Updated 02/03/23 @ 15:35 by Gillian Varela MD) Bright red rectal bleeding (Acute) Chronic liver disease (Acute) Skin lesion (Acute) Neuropathy (Acute) Alcohol use disorder (Acute) Fracture of distal end of fibula (Acute) Transaminitis (Acute) Past Medical History Medical History Alcohol abuse Alcohol use disorder Asthma COPD (chronic obstructive pulmonary disease) HTN (hypertension) MOUNIKA (obstructive sleep apnea) Family History Family history of problems with anesthesia: No Surgical History Surgical History No pertinent past surgical history History of Problems with Anesthesia: No Social History Social History Household Members: Family Housing: House Do you presently have visiting nurse or other home services: No Alcohol intake: current Alcohol intake frequency: other Alcohol type: beer, wi ne and hard liquor Patient Tobacco Use Status: Former Tobacco user Quit Date: decades ago Use of substances other than those prescribed or required for medical reasons: Yes Substance Use Type: Marijuana Are you DNR?: No Advance Directives: No Advance Directives Information Provided: Yes Advance Directives Date on File: 10/23/22 Recently lost weight without trying: Yes How much weight loss: 34pounds or more Nutrition Risks: No Nutritional Risk service: No Current occupational status: employed Meds Allergies Allergy/AdvReac Type Severity Reaction Status Date / Time No Known Allergies Allergy Verified 02/05/23 11:50 Home Medications Medication Instructions Recorded Confirmed Last Taken Type albuterol sulfate 90 mcg/actuation 2 puff inhalation Q4-6H PRN 10/23/22 10/23/22 Unknown History aerosol inhaler (ProAir HFA) Shortness Of Breath amlodipine 5 mg tablet 5 mg PO DAILY 10/23/22 10/23/22 Unknown History magnesium 250 mg tablet 250 mg PO DAILY 10/23/22 10/23/22 Unknown History multivitamin 1 tab PO DAILY 10/23/22 10/23/22 Unknown History Exam Exam Date and Time: March 05, 2023 1018 Pertinent Lab Results Pertinent Lab Results: Laboratory Tests 02/03/23 02/03/23 15:09 15:09 WBC 10.1 Hgb 14.7 Hct 43.7 Plt Count 186 D Sodium 140 Potassium 3.9 Chloride 104 Carbon Dioxide 25 BUN 12 Creatinine 0.73 Narrative Narrative: EKG 10/2022 Vent. Rate : 102 BPM ? ? Atrial Rate : 102 BPM ?? P-R Int : 138 ms? QRS Dur : 076 ms ? ? QT Int : 362 ms ? ? ? P-R-T Axes : 071 040 034 degrees ?? QTc Int : 471 ms ? Sinus tachycardia Otherwise normal ECG No previous ECGs available Assessment and Plan Assessment Anesthesia Assessment: Chart Reviewed Final Anesthetic Review Family History of Problems with Anesthesia: No History of Problems with Anesthesia: No Documented by User: Faby Crane MD 03/06/23 08:23 [facility] Past Medical History Medical History Alcohol abuse Alcohol use disorder Asthma COPD (chronic obstructive pulmonary disease) HTN (hypertension) MOUNIKA (obstructive sleep apnea) Surgical History Surgical History No pertinent past surgical history Social History Social History Household Members: Family Housing: House Do you presently have visiting nurse or other home services: No Alcohol intake: current Alcohol intake frequency: other Alcohol type: beer, wine and hard liquor Patient Tobacco Use Status: Former Tobacco user Quit Date: decades ago Use of substances other than those prescribed or required for medical reasons: Yes Substance Use Type: Marijuana Are you DNR?: No Advance Directives: No Advance Directives Information Provided: Yes Advance Directives Date on File: 10/23/22 Recently lost weight without trying: Yes How much weight loss: 34pounds or more Nutrition Risks: No Nutritional Risk service: No Current occupational status: employed Meds Allergies Allergy/AdvReac Type Severity Reaction Status Date / Time No Known Allergies Allergy Verified 02/05/23 11:50 Home Medications Medication Instructions Recorded Confirmed Last Taken Type albuterol sulfate 90 mcg/actuation 2 puff inhalation Q4-6H PRN 10/23/22 10/23/22 Unknown History aerosol inhaler (ProAir HFA) Shortness Of Breath amlodipine 5 mg tablet 5 mg PO DAILY 10/23/22 10/23/22 Unknown History magnesium 250 mg tablet 250 mg PO DAILY 10/23/22 10/23/22 Unknown History multivitamin 1 tab PO DAILY 10/23/22 10/23/22 Unknown History Exam Airway Mallampati Class: III TM Dist: >3cm Neck ROM: Full Loose/Missing/Broken Teeth: No Heart: RRR Lungs: CTA Assessment and Plan Assessment Anesthesia Assessment: Anesthesia Plan Discussed Final Anesthetic Review NPO: Yes ASA Class: III Final Preanesthetic Review: Meds/Allgs Chart Reviewed, Consent Obtained/Reviewed and Anes Risks/Benef Reviewed Patient Risk: Intermediate Procedure Risk: Low Anesthetic Plan Anesthetic Plan: MAC: Disposition: Standard PACU
[2023-03-06 08:03] VITALS: BMI 29.8
--- NOTE | 2023-03-06 08:13 | MHC.SHP ---
Pre-Procedural Eval Section A Date of Service: 03/06/23 Section B Chief Complaint: Colitis, BRBPR Details of Present Illness: PMH: Alcohol abuse Alcohol use disorder Asthma COPD (chronic obstructive pulmonary disease) HTN (hypertension) MOUNIKA (obstructive sleep apnea) Relevant Family History (Specify if Yes): No Relevant Social History: Alcohol Use Present Medications: see Short Stay Collaborative assessment Allergies: Allergies Allergy/AdvReac Type Severity Reaction Status Date / Time No Known Allergies Allergy Verified 02/05/23 11:50 Review of Systems Review of Systems Comment: Ten point ROS negative except as above Exam Exam Comment: Gen appear: No acute distress HEENT: no icterus Chest: No overt resp distress Abd: soft, nontender, nondistended Psych: Stable affect, answering questions appropriately Neuro: A/Ox3 noted to move all extremities spontaneously Ext: no peripheral edema Plan Diagnosis/Plan: Unchanged I have reviewed the history and physical and performed a pertinent physical examination on my patient. No changes have occurred unless specified. Time Spent With Patient Time: Total time managing care of this patient today ____ minutes.
[2023-03-06 08:19] VITALS: BP 119/75; PULSE 74; RESP 16; TEMP 36.4; O2SAT 96
[2023-03-06] MEDS: Lactated Ringers 1,000 ML 100 ML IVCONT (08:33)
[2023-03-06 09:29] VITALS: BP 107/67; PULSE 78; RESP 16; TEMP 36.4; O2SAT 94
--- NOTE | 2023-03-06 09:37 | P.OP_ITS ---
Operative Note Operative Note Date of Service: 03/06/23 Narrative: Procedure: Colonoscopy Indication: Coltiis, BRBPR Endoscopist: Gillian Varela MD Anesthesia Provider: Megha Courtney Anesthesia type: MAC Instrument: Olympus [id number]-[id number] Consent: Indication, risks vs benefits, and alternatives were discussed with the patient who gave written informed consent to proceed. EKG, pulse, pulse oximetry and blood pressure were monitored throughout the procedure. Please see anesthesia flowsheet. Procedure: The patient was brought to the procedure room and placed in the left lateral decubitus position. IV medications were administered by the anesthesia provider in attendance. A digital rectal exam was performed which was normal. The colonoscope was then inserted through the anus and advanced through the colon to the cecum at 75 cm,and terminal ileum. Mucosa was carefully examined under high definition white light as the instrument was slowly withdrawn in a retrograde panoramic fashion. Retroflexion was performed in rectum. The procedure was not difficult. There were no immediate obvious complications. The quality of the prep was BBPS: 3+3+3 = excellent Withdrawal time 16 minutes. Limitations: No limitations. Findings: Mucosa: Normal to cecum and terminal ileum. Protruding lesions: * 1 sessile polyp of size 4 mm in ascending colon. Cold forceps polypectomy was performed. The polyp was completely removed and retrieved. * 1 semi-pedunculated polyp of size 10 mm in transverse colon. Hot snare polypectomy was performed. The polyp was completely removed and retrieved. * 1 sessile polyp of size 2 mm in sigmoid colon. Cold forceps polypectomy was performed. The polyp was completely removed and retrieved. * Large internal hemorrhoids without stigmata of recent bleeding. Excavated lesions: * Mild scattered diverticulosis of sigmoid colon. Impression: 1. Normal colon and terminal ileum mucosa 2. Total of 3 polyps removed from ascending, transverse, and sigmoid colon. 3. Internal hemorrhoids 4. Diverticulosis Recommendations: - Follow path results. - Repeat colonoscopy in 3 years if polyps are adenomas or sessile serrated. - BRBPR likely from hemorrhoids.
[2023-03-06 09:44] VITALS: BP 115/73; PULSE 70; RESP 16; TEMP 36.6; O2SAT 96
== END 2023-03-06 11:28 | disposition home or self-care (01) ==
PROVIDERS: Visit Provider Internal Medicine
PROC: 0DJD8ZZ Inspection of Lower Intestinal Tract, Via Natural or Artificial Opening Endoscopic (ICD-10-PCS; CPT 45378; principal; 2023-03-06 09:00)
DX: K52.9 Noninfective gastroenteritis and colitis, unspecified (principal); K62.5 Hemorrhage of anus and rectum; D12.2 Benign neoplasm of ascending colon; D12.3 Benign neoplasm of transverse colon; K63.5 Polyp of colon; K57.30 Diverticulosis of large intestine without perforation or abscess without bleeding; K64.8 Other hemorrhoids; F10.10 Alcohol abuse, uncomplicated; K76.9 Liver disease, unspecified; J44.9 Chronic obstructive pulmonary disease, unspecified; I10 Essential (primary) hypertension; L98.9 Disorder of the skin and subcutaneous tissue, unspecified; G62.9 Polyneuropathy, unspecified; D69.6 Thrombocytopenia, unspecified; G47.33 Obstructive sleep apnea (adult) (pediatric); Z79.899 Other long term (current) drug therapy; Z87.891 Personal history of nicotine dependence
CPT/HCPCS: 45385; 45380; 88305; J2250

== ENCOUNTER 2023-04-30 08:47 | Outpatient (AMB) | payer OTHER, SELFPAY ==
--- NOTE | 2023-04-30 08:49 | MHC.OFFVIS ---
Intake Vital Signs 04/30/23 08:51 Height 5 ft 10 in Weight 216 lb 0.848 oz BMI 31.0 BP 129/82 Blood Pressure Location Lt brachial Position Sitting Pulse 97 Intake Visit Reasons: s/p colon Intake Note: [place] presents in the office as a follow up colonoscopy. CC: He states that he had polyps removed. So he just would like to discuss that! Publishing Systems Analyst Required: No Allergies Seasonal Allergies Allergy (Mild, Verified 04/30/23 08:52) Sneezing pet dander Allergy (Mild, Uncoded 04/30/23 08:52) Unknown HPI HPI Comments History of Present Illness Details This is a 41-year-old gentleman with past medical history of alcohol use disorder that has led to chronic liver disease, asthma, hypertension who presents for follow up for liver disease and rectal bleeding. Hospital consult 10/24/22: History was obtained from the patient who states that 2 weeks ago he started noticing intermittent rectal bleeding specially on wiping after a bowel movement.? The bleeding was painless initially and BMs were formed. Then 3 days ago, he also started developing lower abdominal pain with cramping and this was associated diarrhea with mucoid blood in it.? No nausea, vomiting, fevers, chills.? Has been able to tolerate p.o. Does have extensive history of alcohol use, drinks 20 drinks of vodka every day.? Reports a previous endoscopy done at [place] for chest pain and palpitations .? No report of varicose veins or portal hypertension at that time per his recall. Has never had a colonoscopy.? In the emergency room on initial presentation, he was noted to be tachycardic but normotensive.? Labs were significant for hemoglobin of 12.2, baseline unknown.? He was also noted to have thrombocytopenia.? LFTs with AST greater than ALT with bilirubin of 2.2.? Albumin is 3.4.? He initial alcohol level was 260.? He had a diagnostic paracentesis sent out, unfortunately this apple clotted and therefore total WBC count is unknown.? Sag suggestive of portal hypertension. ? Hepatitis serologies are pending.? He had a CT abdomen and pelvis that was personally reviewed.? It does show dense material in his stomach and 1st portion the duodenum.? Also shows ascending colon with surrounding fat stranding as well as small volume of ascites. EGD 10/24/22: Grade A esophagitis Gastric polyp (biopsy) Portal hypertensive gastropathy (biopsy) Normal duodenum Path: A.? Labeled ?pedunculated gastric polyp?:? Consistent with hyperplastic polyp, with ectatic vessels; negative for H pylori, intestinal metaplasia and dysplasia.? B.? Labeled ?biopsy random?:? Gastric body and antral mucosa with reactive changes, focal ectatic vessels, and minimal chronic inactive gastritis; negative for H pylori, intestinal metaplasia and dysplasia.? 02/03/23: Seen in office today. Had a fall in mid Oct shortly after hospital discharge which led to R ankle fracture. Currently in a boot and seeing Ortho later this week for a cast. Main complaints today are: lack of energy, fatigue, decrease in muscle mass mary around face and arms, numbness in tips of fingers. He was able to remain sober for almost 2 months post discharge however relapsed 3 weeks ago. Also saw ? psychiatrist vs PCP (pt unsure of the name and specialty) who prescribed pharmacotherapy for etOH use disorder which the pt was not able to tolerate due to increased somnolence. Now drinking a pint of vodka daily. Previously used to drink 2 pints. No rectal bleeding x 3 months. No abd pain. Pt also brings up a nonhealing scab on his scalp. 03/06/23: Impression: 1. Normal colon and terminal ileum mucosa 2. Total of 3 polyps removed from ascending, transverse, and sigmoid?colon. 3. Internal hemorrhoids 4. Diverticulosis Path: A.? Colon, ascending, polyp:? Tubular adenoma; negative for high-grade dysplasia and carcinoma.? B.? Colon, transverse, polyp:? Tubular adenoma, completely excised; negative for high-grade dysplasia and carcinoma. C.? Colon, sigmoid, polyp:? Hyperplastic polyp. 04/30/23: Reports did not receive letter in mail that was sent out back in February. Due to 10mm TA in transverse colon, repeat recommended in 3 years. In terms of etOH use, continues to drink heavily. Was in [place] last week for vacation and consuming upwards of a pint of vodka per day. Reviewed that already seeing signs of at least advance fibrosis if not cirrhosis and that complete etOH abstinence is vital to avoid progression of liver disease. Scalp lesion persistent, has not seen Derm still. [facility] Medical History Alcohol abuse Alcohol use disorder Asthma COPD (chronic obstructive pulmonary disease) HTN (hypertension) MOUNIKA (obstructive sleep apnea) Surgical History No pertinent past surgical history Social History Household Members: Family Housing: House Do you presently have visiting nurse or other home services: No Alcohol intake: current Alcohol intake frequency: other Alcohol type: beer, wine and hard liquor Patient Tobacco Use Status: Former Tobacco user Quit Date: decades ago Substance Use Type: Marijuana Advance Directives Date on File: 10/23/22 service: No Current occupational status: employed Review of Systems Const All systems reviewed & are unremarkable except as noted in HPI and below Physical Exam Vital Signs: Last Vital Signs Pulse 97 04/30/23 08:51 BP 129/82 04/30/23 08:51 BMI result Body Mass Index 31.0 Gen appear: undernourished HEENT: No scleral icterus, from prev visit: small reddish brown raised plaque measuring 6 mm on the scalp Chest: CTA CVS: Regular S1/S2 no murmurs Abd: soft, nontender, mildly distended, no shifting dullness to percussion, bowel sounds active Ext: No peripheral edema bilaterally Neuro: A/Ox3, no asterixis, fine tremors +++ Derm: Spider angioma noted Assessment & Plan Assessment & Plan (1) Alcohol use disorder: Code(s): F10.90 - Alcohol use, unspecified, uncomplicated (2) Chronic liver disease: Code(s): K76.9 - Liver disease, unspecified (3) Bright red rectal bleeding: Code(s): K62.5 - Hemorrhage of anus and rectum (4) Personal history of colonic polyps: Code(s): Z86.010 - Personal history of colonic polyps (5) Skin lesion: Code(s): L98.9 - Disorder of the skin and subcutaneous tissue, unspecified Plan 1. CLD: Likely 2/2 etOH use disorder. Clinically appears to be consistent with compensated cirrhosis however true assessment of underlying liver function limited by ongoing etOH use. Plan: - Lengthy counseling on etOH cessation. - Previously declined to be seen by addiction medicine, but now contemplative. Referral placed to comprehensive care - Repeat CBC, CMP and INR for MELD - US Abd ordered - Nutritional counseling on protein rich meals - Add night time snack to avoid prolonged fasting state 2. BRBPR: Resolved. Was likely due to hemorrhoids based on colo results. 3. Hx of polyps: Repeat colo due 2025 due to 10 mm tubular adenoma in 2022. 4. Scalp lesion: Plan: - Strongly encouraged to follow up on Derm referral Follow up in 4-6 weeks Orders: Orders US abdomen complete Today F10.90 - Alcohol use, unspecified, uncomplicated Comprehensive Met. Panel Today K76.9 - Liver disease, unspecified Prothrombin Time INR Today K76.9 - Liver disease, unspecified Complete Blood Count no Diff Today K76.9 - Liver disease, unspecified Phosphatidylethanol, Blood Today K76.9 - Liver disease, unspecified Referrals Addiction Medicine Referral F10.90 - Alcohol use, unspecified, uncomplicated, K76.9 - Liver disease, unspecified Coding Level of Care Code Est Pt Level 5 (60810) Diagnoses Alcohol use disorder F10.90 Chronic liver disease K76.9 Bright red rectal bleeding K62.5 Personal history of colonic polyps Z86.010 Skin lesion L98.9
[2023-04-30 08:51] VITALS: BP 129/82; PULSE 97; BMI 31.0
== END 2023-04-30 09:19 | disposition home or self-care (01) ==
PROVIDERS: Visit Provider Internal Medicine
DX: F10.90 Alcohol use, unspecified, uncomplicated (principal); K76.9 Liver disease, unspecified; K62.5 Hemorrhage of anus and rectum; Z86.010 Personal history of colon polyps; L98.9 Disorder of the skin and subcutaneous tissue, unspecified
CPT/HCPCS: 99214

== ENCOUNTER 2023-04-30 08:47 | Outpatient (REF) | payer OTHER, SELFPAY ==
[2023-04-30 10:09] LABS: Hematocrit 45.4 % (42.0-52.0); Hemoglobin 15.7 g/dl (14.0-18.0); Mean Corpuscular HGB Conc 34.6 g/dl (31.0-36.0); Mean Corpuscular Hemoglobin 34.3 pg (27.0-33.0); Mean Corpuscular Volume 99.1 fL (80.0-98.0); Mean Platelet Volume 9.7 fL (9.4-12.4); Platelet Count 152 X10*3/uL (160-400); Red Blood Count 4.58 X10*6/uL (4.60-5.80); Red Cell Distribution Width 13.8 % (11.0-16.0); White Blood Count 5.8 X10*3/uL (4.8-10.8)
[2023-04-30 10:14] LABS: INTERNATIONAL NORM RATIO 0.9 (0.9-1.1); Prothrombin Time 11.5 SEC (11.1-13.3)
[2023-04-30 10:52] LABS: Alanine Aminotransferase 53 U/L (0-40); Albumin Level 4.5 g/dL (3.5-5.0); Alkaline Phosphatase 90 U/L (39-117); Anion Gap 13 (12-20); Aspartate Amino Transferase 38 U/L (5-37); Bilirubin Total 0.5 mg/dL (0.0-1.0); Blood Urea Nitrogen 8 mg/dL (9-16); Carbon Dioxide 26 mmol/L (22-29); Chloride 107 mmol/L (96-108); Estimated Glomerular Filt Rate > 60; Glucose Random 104 mg/dL (60-115); Potassium 4.1 mmol/L (3.3-5.1); Sodium 142 mmol/L (135-145); Total Protein 8.2 g/dL (6.5-8.0)
[2023-05-08 08:50] LABS: Phosphatidylethanol 16:0-18:1 >400 (H); Phosphatidylethanol 16:0-18:2 >400 (H)
== END 2023-04-30 08:48 | disposition home or self-care (01) ==
LOC: HO.LAB 08:47
PROVIDERS: Visit Provider Internal Medicine
DX: K76.9 Liver disease, unspecified (principal); F10.90 Alcohol use, unspecified, uncomplicated; K62.5 Hemorrhage of anus and rectum; L98.9 Disorder of the skin and subcutaneous tissue, unspecified; Z86.010 Personal history of colon polyps
CPT/HCPCS: 36415; 80053; 80321; 85027; 85610

== ENCOUNTER 2023-05-13 13:48 | Emergency (ER) | payer OTHER, SELFPAY ==
[2023-05-13 13:57] VITALS: BP 152/92; PULSE 75; RESP 20; TEMP 37; O2SAT 94; BMI 30.4
--- NOTE | 2023-05-13 13:58 | ED_ITS ---
[facility] - General Adult General Chief complaint: Skin/Abscess/Foreign Body Stated complaint: Back pain Time Seen by Provider: 05/13/23 15:57 Source: patient and RN notes reviewed Mode of arrival: ambulatory Limitations: no limitations History of Present Illness HPI narrative: This is a 42-year-old male, with a past medical history of alcohol abuse, presenting to the emergency department with complaints of abscess to his mid back. Patient reports that he has had this lesion to his back for the last 20 years however notes that over the last several days he has noticed increased redness, pain, and it has been draining. He denies any fevers, chills, chest pain, shortness of breath, abdominal pain, nausea, vomiting or diarrhea. No other complaints or concerns at this time. MD complaint: Abscess Onset (ago): day(s) Severity: moderate Quality: aching Pain Consistency: constant Relieving factors: none Exacerbating factors: none Associated symptoms: denies other symptoms Treatments prior to arrival: none Related Data Home Medications Medication Instructions Recorded Confirmed albuterol sulfate 90 mcg/actuation 2 puff inhalation Q4-6H PRN 10/23/22 10/23/22 aerosol inhaler (ProAir HFA) Shortness Of Breath amlodipine 5 mg tablet 5 mg PO DAILY 10/23/22 10/23/22 magnesium 250 mg tablet 250 mg PO DAILY 10/23/22 10/23/22 multivitamin 1 tab PO DAILY 10/23/22 10/23/22 Previous Rx's Medication Instructions Recorded folic acid 1 mg tablet 1 mg PO DAILY #30 tabs 10/28/22 omeprazole 40 mg capsule,delayed 40 mg PO BID@0630,1630 #60 caps 10/28/22 release thiamine mononitrate (vit B1) 100 100 mg PO DAILY #30 tabs 10/28/22 mg tablet cephalexin 250 mg capsule 250 mg PO QID 7 days #28 caps 05/13/23 Allergies Allergy/AdvReac Type Severity Reaction Status Date / Time Seasonal Allergies Allergy Mild Sneezing Verified 04/30/23 08:52 pet dander Allergy Mild Unknown Uncoded 04/30/23 08:52 Review of Systems Review of Systems: Yes all other systems are reviewed and are negative Constitutional: Constitutional: Reports as per [facility] Past Medical History Medical History Alcohol abuse Alcohol use disorder Asthma COPD (chronic obstructive pulmonary disease) HTN (hypertension) MOUNIKA (obstructive sleep apnea) Surgical History No pertinent past surgical history Social History Social History Household Members: Family Housing: House Do you presently have visiting nurse or other home services: No Alcohol intake: current Alcohol intake frequency: other Alcohol type: beer, wine and hard liquor Patient Tobacco Use Status: Former Tobacco user Quit Date: decades ago Substance Use Type: Marijuana Advance Directives: Yes Advance Directives on File: Yes Advance Directives Date on File: 10/23/22 service: No Current occupational status: employed Physical Exam ED Vital Signs: Vital Signs - 24 hr 05/13/23 13:57 05/13/23 17:59 Temperature 98.6 F 98.8 F Pulse Rate 75 70 Respiratory Rate 20 20 Blood Pressure 152/92 H 146/91 H Pulse Oximetry 94 96 Oxygen Delivery Method Room Air Room Air BMI result Body Mass Index 30.4 Const General: cooperative, comfortable and no acute distress Orientation/consciousness: patient oriented x3 Limitations: no limitations HENMT Head: Yes normal to inspection, Yes normocephalic and Yes atraumatic Ears: hearing grossly normal bilaterally General nose exam: Normal external nose present Face and sinus: Yes normal facial exam Mouth: Normal oral and palatal mucosa present, oropharynx normal and moist mucous membranes Throat: Yes posterior oropharynx normal Eyes General: appearance normal, both eyes and all related structures Eyelids: Yes eyelids normal Conjunctivae: conjunctivae normal Sclerae: sclerae normal Pupils: Equal, round and reactive pupils present EOM: EOMs intact bilaterally Neck Neck: Yes normal visual inspection, Yes full ROM and Yes no lymphadenopathy Lymphatic: no lymphadenopathy noted Chest Chest palpation & inspection: normal inspection of the chest Resp Effort & Inspection: normal respiratory effort and able to speak in complete sentences Auscultation: clear to auscultation bilaterally, no crackles, no rales, no rhonchi and no wheezes Cardio Rate: regular rate Rhythm: regular rhythm Heart sounds: S1 normal heart sound present and S2 normal heart sound present GI Inspection: Yes normal to inspection Skin Other: Lower mid back, there is a 2x2 fluctuant lesion noted, actively draining, no surrounding erythema or warmth. TTP. Neuro General: patient oriented x3 and moves all extremities Cranial nerves: Yes Equal, round and reactive pupils present Extrem General: Yes normal to inspection Right upper extremity: normal to inspection Left upper extremity: normal to inspection Right lower extremity: normal to inspection Left lower extremity: normal to inspection Course Course Course Narrative: This is a rapid medical exam: Additional HPI, ROS, PE not included below will be deferred to primary provider. Patient is a 42-year-old male presenting to the emergency department with abscess to back. States has had a mass in the area for ~20 years, but recently the area has increased in size, and over the past 3 days has become significantly large and started draining purulent discharge. Denies fevers. Medications Administered Discontinued Medications Generic Name Dose Route Start Last Admin Trade Name Adrian PRN Reason Stop Dose Admin Lidocaine HCl 5 ml 05/13/23 17:38 05/13/23 18:00 Lidocaine Hcl 1 % Mpf 5 Ml Vial SUBCUT 05/13/23 17:39 5 ml ONCE ONE Administration Procedures Abscess I/D Site: back Local Anesthetic: lidocaine 1% Amount of anesthesia used (mL): 5 Technique: incised with blade Amount of fluid expressed (mL): 20 Sent for culture/gram staining?: No Irrigation: No Packing used?: iodoform Medical Decision Making Medical Decision Making MDM Narrative: 42 y/o M, hx of etoh abuse, presenting to the emergency department for evaluation of abscess noted to his back. Area is fluctuant and needs to be incised and drained. Incision and drainage performed see procedure note. Patient tolerated procedure well. Pt also has a hx of etoh abuse, drinks 1.5 pints of hard liquor a day, interested in speaking with recovery services. Pt spoke to them and has recovery resources upon discharge. Pt is clinically sober. Advised pt to return in 48-72 hours for a wound check and packing removal. Pt understands and agrees with plan. Pt stable for d/c. Differential Diagnosis Differential Diagnoses: The differential diagnosis associated with the presentation includes Abscess, cyst, cellulitis Discharge Plan Discharge Clinical Impression: Abscess Patient Disposition: Home, Self-Care Instructions: Abscess Incision and Drainage (DC), Incision and Drainage (ED) Additional Instructions: You had an abscess on her back that needed to be drained. The were able to drain this abscess and moderate amount of pus was expressed from the region. The area may continue to drain for the next several days that is normal. We packed your abscess with packing, this allows the abscess to heal from the inside out. Please keep packing in place until you are seen by another healthcare provider for wound check. If the packing does fell off on its own at that is okay. Please have a wound check in the next 48-72 hours. You may return to the emergency room for wound check or you can follow-up with your primary care physician or urgent care. Please take prescribed antibiotic as directed. Finish the entire course even if your feeling better. Watch for any new or worsening symptoms including but not limited to worsening redness, swelling, fevers or chills. I am also referring you to a surgeon as these types of abscesses in cyst may return. Call to make an appointment. Prescriptions: New cephalexin 250 mg capsule 250 mg PO QID 7 Days Qty: 28 0RF No Action multivitamin Tablet 1 tab PO DAILY amlodipine 5 mg Tablet 5 mg PO DAILY magnesium 250 mg Tablet 250 mg PO DAILY albuterol sulfate [ProAir HFA] 90 mcg/actuation Hfa Aerosol Inhaler 2 puff INHALATION Q4-6H PRN (Reason: Shortness Of Breath) omeprazole 40 mg Capsule,Delayed Release(Dr/Ec) 40 mg PO BID@0630,1630 Qty: 60 0RF folic acid 1 mg Tablet 1 mg PO DAILY Qty: 30 0RF thiamine mononitrate (vit B1) 100 mg Tablet 100 mg PO DAILY Qty: 30 0RF Referrals: [facility] General Surgeons [Provider Group] Interventions: ED Discharge Assessment Last Done: 05/13/23 19:32 Discharge Date/Time: 05/13/23 19:32
[2023-05-13 17:59] VITALS: BP 146/91; PULSE 70; RESP 20; TEMP 37.1; O2SAT 96
[2023-05-13] MEDS: Lidocaine HCl 1 % MPF 5 ML VIAL SUBCUT (18:00)
--- NOTE | 2023-05-13 19:35 | MHC.RECOVSUP ---
? Reason for consult:ETOH o? [place] [id number] o? Identified substance use concern:? -? Support ? Intervention: o? Community resources provided ? Plan: o? Referral to [facility] o? Follow up tomorrow? ? Additional information: met with this pt and discussed treatment options, pt stated he was interested in outpatient services rather than inpatient. provided this pt with recovery resources; we also discussed MAT and this pt would like to be referred to [facility] Please follow up with this pt tomorrow via phone call to schedule an appointment with Lanette Anglin. Provider informed.
== END 2023-05-13 19:32 | disposition home or self-care (01) ==
PROVIDERS: Emergency Provider Student in an Organized Health Care Education/Training Program
DX: L02.212 Cutaneous abscess of back [any part, except buttock and flank] (principal); Z79.899 Other long term (current) drug therapy
CPT/HCPCS: 10060; 99283; 99284

== ENCOUNTER 2023-05-20 09:35 | Outpatient (REF) | payer OTHER, SELFPAY ==
--- NOTE | ~2023-05-20 | US_ITS ---
EXAMINATION: US ABDOMEN COMPLETE CLINICAL INFORMATION: Alcohol use, unspecified, uncomplicated. COMPARISON: Ultrasound abdomen limited 10/24/2022. CT of the abdomen and pelvis October 2022 TECHNIQUE: Real-time imaging of the abdominal viscera. FINDINGS: PANCREAS: Not well visualized due to bowel gas ABDOMINAL AORTA: Not well visualized due to bowel gas INFERIOR VENA CAVA: Visualized portions are normal. LIVER: Liver echotexture is increased and heterogeneous. The liver is enlarged, right lobe measuring 19 cm in length. The contour of the liver is slightly irregular questionable for mild cirrhotic change. No focal hepatic lesion. There is no intrahepatic biliary duct dilatation seen. GALLBLADDER: Normal. The gallbladder is physiologically distended without evidence of stones, sludge, polyps, wall thickening or pericholecystic fluid. COMMON BILE DUCT: Normal in caliber measuring 0.4 cm in diameter. RIGHT KIDNEY: Normal. No hydronephrosis. No renal calculi or focal parenchymal lesions. The kidney measures 11.0 cm in maximum dimension. LEFT KIDNEY: Normal. No hydronephrosis. No renal calculi or focal parenchymal lesions. The kidney measures 10.6 cm in maximum dimension. SPLEEN: Normal. The spleen measures 11.3 cm in maximum dimension. FREE FLUID: None. US/US abdomen complete IMPRESSION: Slightly enlarged echogenic liver. Liver is slightly lobular contour questionable for mild cirrhotic change. Limited visualization of the pancreas and aorta.
== END 2023-05-20 09:36 | disposition home or self-care (01) ==
LOC: HO.US 09:35
PROVIDERS: Visit Provider Internal Medicine
DX: F10.90 Alcohol use, unspecified, uncomplicated (principal)
CPT/HCPCS: 76700

== ENCOUNTER 2023-05-27 09:04 | Outpatient (AMB) | payer OTHER, SELFPAY ==
--- NOTE | 2023-05-27 09:05 | A.OFFVIS_ITS ---
Intake Vital Signs 05/27/23 09:11 BP 128/86 Blood Pressure Location Lt radial Position Sitting Pulse 103 H Pulse Source Pulse Oximeter Pulse Oximetry (%) 95 Oxygen Delivery Method Room Air Comment history of asthma Intake Visit Reasons: MAT Intake Intake Note: the patient presents for a mat visit Carriage Feeder Required: No Allergies Seasonal Allergies Allergy (Mild, Verified 05/27/23 09:14) Sneezing pet dander Allergy (Mild, Uncoded 05/27/23 09:14) Unknown Do you need a note to return to daycare/school/sports/work: No HPI MAT Intake HPI Details Patient presents for intake and evaluation of alcohol use Patient reports he is currently drinking 1.5 pints daily--previously drinking 2 pints Vodka and gatorade -3-4 drinks daily starts in AM started drinking daily 5 years ago Treatment history: -detox during medical admission within t he last year Gives up alcohol during lent Denies any history of seizure tremor in AM withdrawal starts at 3am Family Hx: -Father with AUD 2003 DUI X2 blackout Denies any other substance use Current motivation for treatment is the impact drinking has been taking on his overall health Discussed options for treatment, including recommendation for ATS admission based on amount of alcohol patient is drinking daily and patients overall goal of complete abstinence. Discussed [facility] to assist with maintaining abstinence after acute treatment as well as other recovery supports. [facility] Medical History Alcohol abuse Alcohol use disorder Asthma COPD (chronic obstructive pulmonary disease) HTN (hypertension) MOUNIKA (obstructive sleep apnea) Surgical History No pertinent past surgical history Social History Household Members: Family Housing: House Do you presently have visiting nurse or other home services: No Alcohol intake: current Alcohol intake frequency: other Alcohol type: beer, wine and hard liquor Patient Tobacco Use Status: Former Tobacco user Quit Date: decades ago Substance Use Type: Marijuana Advance Directives Date on File: 10/23/22 service: No Current occupational status: employed Review of Systems Const Reports as per HPI and Reports no additional complaints Physical Exam Vital Signs: Last Vital Signs Pulse 103 H 05/27/23 09:11 BP 128/86 05/27/23 09:11 Pulse Ox 95 05/27/23 09:11 Oxygen Delivery Method Room Air 05/27/23 09:11 Const General: cooperative, healthy appearing and no acute distress Psych Appearance: well kempt Speech and movement: Clear speech present Affect: normal affect Thought process: Normal thought process present Insight: Fair insight present (Psych) Assessment & Plan Assessment & Plan (1) Alcohol use disorder: Code(s): F10.90 - Alcohol use, unspecified, uncomplicated Plan: * patient to consider ATS admission as he would have to take time off of work * not a candidate for naltrexoen at this time due to liver funtion * risk reduction discussion * patient to call back office when he has decided how he wants to move forward Coding Level of Care Code New Pt Level 4 (30895) Diagnoses Alcohol use disorder F10.90
[2023-05-27 09:11] VITALS: BP 128/86; PULSE 103; O2SAT 95
== END 2023-05-27 10:44 | disposition home or self-care (01) ==
LOC: HO.HCC 09:04
PROVIDERS: Visit Provider Nurse Practitioner Psychiatric/Mental Health
DX: F10.90 Alcohol use, unspecified, uncomplicated (principal)
CPT/HCPCS: 99204

== ENCOUNTER → 2023-05-27 09:04 | Outpatient (BNVA) | payer OTHER, SELFPAY | PROVIDERS: Visit Provider Nurse Practitioner Psychiatric/Mental Health ==

== ENCOUNTER 2023-09-27 11:13 | Emergency (ER) | payer OTHER, SELFPAY ==
--- NOTE | ~2023-09-27 | XR_ITS ---
EXAMINATION: XR CHEST CLINICAL INFORMATION: Shortness of breath COMPARISON: None available. TECHNIQUE: 2 views of the chest were obtained. FINDINGS: Slight elevation the right hemidiaphragm. Left basilar streaky opacities may reflect atelectasis versus infectious/inflammatory etiology. No pneumothorax. Trachea is midline. Cardiac mediastinal silhouette is not enlarged. Soft tissues are unremarkable. XR/XR chest 2V IMPRESSION: 1. Slight elevation the right hemidiaphragm. 2. Left basilar streaky opacities may reflect atelectasis versus infectious/inflammatory etiology.
--- NOTE | ~2023-09-27 | CT_ITS ---
EXAMINATION: CT ABDOMEN AND PELVIS WITH CONTRAST CLINICAL INFORMATION: Right upper quadrant abdominal pain COMPARISON: CT abdomen pelvis 10/23/2022. TECHNIQUE: Multidetector volumetric images were obtained from the superior aspect of the liver through the pubic symphysis following administration 85 mL of Omnipaque 350 intravenous contrast. Sagittal and coronal reformatted images were obtained on the technologist's workstation. Oral contrast: No This CT examination was performed using dose optimization techniques as appropriate, variously including the following: *Automated exposure control *Adjustment of mA and/or kV according to patient size (this includes techniques or standardized protocols for targeted exams where dose is matched to indication/reason for exam; i.e. extremities or head) *Use of iterative reconstruction technique DLP: 690 mGy-cm FINDINGS: LUNG BASES: Unremarkable. LIVER AND BILIARY TREE: Similar marked hepatomegaly, with liver spanning 25.3 cm, and marked diffuse hepatic steatosis with heterogeneous hepatic attenuation and mild contour nodularity. Possible 1.8 cm hypoattenuating lesion in subcapsular left hepatic segment IVb (series 3, image 29), with overlying capsular bulge. Limited assessment for focal liver lesions in the setting of single contrast phase acquisition. GALLBLADDER: Distended gallbladder, measuring 5.5 cm in diameter, with mild gallbladder wall thickening. No pericholecystic inflammatory fat stranding or fluid. PANCREAS: Mild hazy inflammatory fat stranding along the course of the pancreas (series 3, image 34). SPLEEN: Splenomegaly with spleen spanning 13.4 cm in craniocaudal dimension, slightly increased. ADRENAL GLANDS: Unremarkable. KIDNEYS AND URETERS: Unremarkable. GASTROINTESTINAL TRACT: Mild circumferential distal esophageal wall thickening. Normal appendix. VASCULAR: Recanalized umbilical vein. LYMPH NODES: No lymphadenopathy. PERITONEUM: No ascites. BLADDER: Unremarkable. PELVIC VISCERA: Unremarkable. ABDOMINAL AND PELVIC WALL: Left inguinal/inguinal canal surgical clips. OSSEOUS STRUCTURES: Unremarkable. CT/CT abdomen pelvis w IV con IMPRESSION: 1. Compared to 10/23/2022, similar marked hepatomegaly, steatosis cirrhosis with portal hypertension as evidenced by recanalized umbilical vein and splenomegaly. There is a questionable 1.8 cm hypoattenuating lesion in subcapsular left hepatic segment IVb, with overlying capsular bulge suboptimally evaluated on single contrast phase CT and dedicated multiphase contrast-enhanced MRI liver is recommended for further assessment. 2. Mild hazy inflammatory fat stranding along the course of the pancreas, which may be seen in the setting of acute pancreatitis. Correlate with lipase. 3. Distended gallbladder with mild gallbladder wall thickening, which may be related to underlying liver disease. If there is clinical concern for cholecystitis, consider right upper quadrant ultrasound.
--- NOTE | ~2023-09-27 | US_ITS ---
EXAMINATION: US ABDOMEN LIMITED CLINICAL INFORMATION: Upper abdominal pain. COMPARISON: CT abdomen pelvis from the same day TECHNIQUE: Real-time imaging of the right upper quadrant abdominal viscera. FINDINGS: PANCREAS: Pancreas is not visualized due to overlying bowel gas. LIVER: The liver is enlarged measuring 22 cm maximal dimension. Diffusely increased liver parenchymal echogenicity with poor penetration. No focal hepatic lesions or intrahepatic biliary ductal dilatation is visualized within the limited exam. GALLBLADDER: The gallbladder is physiologically distended without evidence of stones, sludge, polyps, wall thickening or pericholecystic fluid. COMMON BILE DUCT: Normal in caliber measuring 0.4 cm in diameter. RIGHT KIDNEY: Normal. No hydronephrosis. No renal calculi or focal parenchymal lesions. The kidney measures 11.8 cm in maximum dimension. FREE FLUID: None. US/US abdomen limited IMPRESSION: 1. Enlarged liver with diffusely increased liver parenchymal echogenicity suggesting underlying hepatocellular disease. No focal hepatic lesions are visualized within the limited exam. 2. No sonographic evidence of acute cholecystitis. 3. Pancreas is not visualized due to overlying bowel gas.
[2023-09-27 11:51] VITALS: BP 118/73; PULSE 93; RESP 18; TEMP 36.8; O2SAT 95; BMI 32.5
--- NOTE | 2023-09-27 11:52 | ED.GENADULT ---
HPI - General Adult General Chief complaint: Abdominal Pain Stated complaint: pancreatitis/ body rash Time Seen by Provider: 09/27/23 18:52 Source: patient, RN notes reviewed and old records reviewed Mode of arrival: ambulatory Limitations: no limitations History of Present Illness HPI narrative: 42-year-old male presents for evaluation of abdominal pain. Patient was admitted to [facility] and discharged 5 days ago. He reports he is admitted for pancreatitis related to alcohol abuse He has not had a drink in approximately 1 week Patient reports that he went into urgent Care and ?they told me I was jaundice and to go straight to the ER. ? Patient reports he was given a lot of fluids, pain medication and potassium while he was admitted at [facility] and he had some testing was not sure exactly what was done He states that he has abdominal pain but his abdomen is not more distended than usual He denies any fevers or chills Patient also reports multiple bruises to his body that he does not remember injuring He notes a bruise to his right chest, right thigh area He has bruises to both of his arms but he believes those are from blood draws and IVs No other complaints or concerns Related Data Home Medications Medication Instructions Recorded Confirmed albuterol sulfate 90 mcg/actuation 2 puff inhalation Q4-6H PRN 10/23/22 10/23/22 aerosol inhaler (ProAir HFA) Shortness Of Breath amlodipine 5 mg tablet 5 mg PO DAILY 10/23/22 10/23/22 magnesium 250 mg tablet 250 mg PO DAILY 10/23/22 10/23/22 multivitamin 1 tab PO DAILY 10/23/22 10/23/22 Previous Rx's Medication Instructions Recorded folic acid 1 mg tablet 1 mg PO DAILY #30 tabs 10/28/22 omeprazole 40 mg capsule,delayed 40 mg PO BID@0630,1630 #60 caps 10/28/22 release thiamine mononitrate (vit B1) 100 100 mg PO DAILY #30 tabs 10/28/22 mg tablet cephalexin 250 mg capsule 250 mg PO QID 7 days #28 caps 05/13/23 Allergies Allergy/AdvReac Type Severity Reaction Status Date / Time Seasonal Allergies Allergy Mild Sneezing Verified 09/27/23 11:51 pet dander Allergy Mild Unknown Uncoded 05/27/23 09:14 Review of Systems Constitutional: Constitutional: Reports chills Eyes: Eyes: Denies blurry vision Cardiovascular: Cardiovascular: Denies chest pain and Denies dyspnea Respiratory: Respiratory: Denies cough and Denies dyspnea Gastrointestinal: Gastrointestinal: Reports abdominal pain, Reports nausea and Reports vomiting Musculoskeletal: Musculoskeletal: Denies back pain Integumentary/Breasts: Skin/Breast: Denies rash and Reports unusual bruising PMFSH Past Medical History Onset Date is defined in the Problem List Problems that require an onset date and time if occurred within 24 hrs of arrival to the ED Aortic Dissection and Rupture; Neurologic impairment; Cardiopulmonary Arrest; Endotracheal Intubation; Insertion or Replacement of Mechanical Circulatory Assist Device Medical History Alcohol abuse Alcohol use disorder Asthma COPD (chronic obstructive pulmonary disease) HTN (hypertension) MOUNIKA (obstructive sleep apnea) Surgical History No pertinent past surgical history Social History Social History Household Members: Family Housing: House Do you presently have visiting nurse or other home services: No Alcohol intake: current Alcohol intake frequency: other Alcohol type: beer, wine and hard liquor Patient Tobacco Use Status: Former Tobacco user Quit Date: decades ago Smoked in Last 30 Days: No Substance Use Type: Marijuana Advance Directives: Yes Advance Directives on File: Yes Advance Directives Date on File: 10/23/22 service: No Current occupational status: employed Physical Exam ED Vital Signs: Vital Signs - 24 hr 09/27/23 11:51 09/27/23 19:05 Temperature 98.3 F 98.5 F Pulse Rate 93 86 Respiratory Rate 18 17 Blood Pressure 118/73 114/66 Pulse Oximetry 95 96 Oxygen Delivery Method Room Air Room Air BMI result Body Mass Index 32.5 Const General: healthy appearing, comfortable, no acute distress, alert and awake Nutritional Appearance: well nourished Orientation/consciousness: patient oriented x3 HENMT Head: Yes normocephalic and Yes atraumatic Eyes Eyelids: Yes eyelids normal Conjunctivae: conjunctivae normal Sclerae: scleral abnormal bilateral scleral exudate, scleral injection and other (Scleral icterus) and diffuse Corneas: corneas normal Pupils: Equal, round and reactive pupils present EOM: EOMs intact bilaterally Neck Neck: Yes full ROM Resp Effort & Inspection: normal respiratory effort, able to speak in complete sentences and not labored GI Inspection: Yes distended Palpation (GI): Soft to palpation, Firmness to palpation present (GI), Tenderness to palpation present (GI) (Diffusely tender), no guarding and not rigid Skin General skin exam: elasticity normal, ecchymosis and jaundice Neuro General: patient oriented x3 Cranial nerves: Yes Equal, round and reactive pupils present and Yes Bilaterally intact EOM present Cognition (Neuro): normal cognition Extrem Other: Moving all extremities well without any obvious deformities Course Course Course Narrative: This is an RME: Additional HPI, ROS, PE not included below will be deferred to primary provider. This is a [id number], with a hx of pancreatitis, asthma, and HTN, with recent admission to [facility] 1 week ago, presenting to the ER with complaints of abdominal pain, nausea, vomiting, body bruising admitted for 4-5 days. Admitted to [facility] between 09/20-09/23. Last alcohol drink was 1 week prior to admission. He started introducing solids and symptoms worsen. He is jaundice, abdomen is soft with tenderness diffusely. Large bruise noted to right thigh, bilateral upper extremities. Also endorsing some shortness of breath. Plan: Labs, EKG, chest x-ray, EKG, attempt to obtain records from [facility] Reevaluation(s) Reevaluation #1: Patient had hepatitis testing performed a few months ago that was unremarkable Time: 21:54 Reevaluation #2: Patient's imaging does not show findings consistent with cholecystitis or biliary obstruction. Patient was advised to continue liquid diet and follow-up with GI number provided. I did discuss the CT imaging as well as the hypoattenuated spine liver that requires MRI follow-up with the patient Time: 22:07 Medications Administered Discontinued Medications Generic Name Dose Route Start Last Admin Trade Name Freq PRN Reason Stop Dose Admin Sodium Chloride 1,000 mls @ 999 mls/hr 09/27/23 19:30 09/27/23 20:40 Ns IV 09/27/23 20:30 Infused .Q1H1M YUMIKO Infusion Iohexol 85 ml 09/27/23 20:08 09/27/23 20:08 Iohexol 350 Mg/Ml 100 Ml Infus..Btl IV 09/27/23 20:09 85 ml ONCE ONE Administration Morphine Sulfate 4 mg 09/27/23 19:30 09/27/23 19:38 Morphine Sulfate 4 Mg/Ml Cartridge IVPUSH 09/27/23 19:31 4 mg ONCE ONE Administration Protocol Ondansetron HCl 4 mg 09/27/23 19:31 09/27/23 19:38 Ondansetron Hcl 4 Mg/2 Ml Vial IVPUSH 09/27/23 19:32 4 mg ONCE ONE Administration Medical Decision Making Medical Decision Making [facility] Narrative: 42-year-old male presents for evaluation of abdominal pain and jaundice. He does have scleral icterus and jaundice skin. His total bilirubin is elevated to 7.4. He has had this elevated in the past but not as high. He has a transaminitis which is also worsened compared to his baseline. We will attempt to get records from [facility]. In the meantime we will get a CT scan the abdomen pelvis as well as an ultrasound of the right upper quadrant. Patient medicated IV fluids and morphine, Zofran Differential Diagnosis Differential Diagnoses: The differential diagnosis associated with the presentation includes Pancreatitis Obstructive biliary disease Acalculous cholecystitis Gallstone pancreatitis Liver cirrhosis Admission/Observation Consideration of admission/observation: Escalation of care including admission/observation considered Lab Data [facility] Lab Attestation statement: I reviewed the patient's lab results. As above 09/27/23 12:30 09/27/23 12:30 Labs: Lab Results 09/27/23 Range/Units 12:30 WBC 5.5 (4.8-10.8) X10*3/uL RBC 3.78 L (4.60-5.80) X10*6/uL Hgb 13.6 L (14.0-18.0) g/dl Hct 38.9 L (42.0-52.0) % MCV 102.9 H (80.0-98.0) fL MCH 36.0 H (27.0-33.0) pg MCHC 35.0 (31.0-36.0) g/dl RDW 18.7 H (11.0-16.0) % Plt Count 222 D (160-400) X10*3/uL MPV 10.2 (9.4-12.4) fL Immature Gran % (Auto) 0.4 (0.0-0.4) % Neut % (Auto) 68.2 (45-73) % Lymph % (Auto) 8.4 L (20-40) % Atlantic % (Auto) 20.3 H (2-11) % Eos % (Auto) 1.6 (0-4) % Baso % (Auto) 1.1 (0-2) % Lymph # (Auto) 0.5 L (1.2-4.9) X10*3/uL Atlantic # (Auto) 1.1 (0.1-1.2) X10*3/uL Eos # (Auto) 0.1 (0.0-0.4) X10*3/uL Baso # (Auto) 0.1 (0.0-0.2) X10*3/uL Abs Immat Gran (auto) 0.02 (0.00-0.03) X10*3/uL Absolute Neuts (auto) 3.7 (2.0-8.3) x10*3/uL Absolute Nucleated RBC 0.000 (0.0-0.012) X10*3/uL Nucleated RBC % (auto) 0.0 (0.0-0.2) /100WBC Smear Tech's Comments VERIFIED PT 13.6 H (11.1-13.3) SEC INR 1.1 (0.9-1.1) APTT 34.3 (26.0-36.4) SEC Sodium 136 (135-145) mmol/L Potassium 3.5 (3.3-5.1) mmol/L Chloride 101 (96-108) mmol/L Carbon Dioxide 25 (22-29) mmol/L Anion Gap 14 (12-20) BUN 4 L (9-16) mg/dL Creatinine 0.74 (0.5-1.4) mg/dL Estim Creat Clear Calc 156.2 Estimated GFR > 60 Random Glucose 109 (60-115) mg/dL Calcium 9.8 (8.4-10.2) mg/dL Magnesium 1.7 (1.6-2.6) mg/dL Total Bilirubin 7.4 H (0.0-1.0) mg/dL Direct Bilirubin 6.0 H (0.0-0.5) mg/dL AST 194 H (5-37) U/L ALT 153 H (0-40) U/L Alkaline Phosphatase 155 H (39-117) U/L Ammonia 52 (13-55) umol/L Troponin I High Sens 3.1 (<3.5-35.0) ng/L Total Protein 6.9 (6.5-8.0) g/dL Albumin 3.5 (3.5-5.0) g/dL Lipase 107 H (8-78) U/L Independent Interpretation I performed an independent interpretation of an: Ultrasound (Agree with Radiology interpretation) and CT Scan (Agree with Radiology interpretation) Radiology Impression Discussion of test interpretation with radiology: I have reviewed the radiologist's reading. Discharge Plan Discharge Clinical Impression: Transaminitis, Chronic liver disease Patient Disposition: Home, Self-Care Instructions: Cirrhosis (ED) Additional Instructions: Your liver enzymes were elevated today. Your pancreas is still slightly irritated. You should continue a liquid diet for the next [address] scan of your abdomen and pelvis showed a spot on your liver that recommends MRI to follow-up and better characterize You may follow-up with your GI doctor to have this study performed Prescriptions: No Action multivitamin Tablet 1 tab PO DAILY amlodipine 5 mg Tablet 5 mg PO DAILY magnesium 250 mg Tablet 250 mg PO DAILY albuterol sulfate [ProAir HFA] 90 mcg/actuation Hfa Aerosol Inhaler 2 puff INHALATION Q4-6H PRN (Reason: Shortness Of Breath) omeprazole 40 mg Capsule,Delayed Release(Dr/Ec) 40 mg PO BID@0630,1630 Qty: 60 0RF folic acid 1 mg Tablet 1 mg PO DAILY Qty: 30 0RF thiamine mononitrate (vit B1) 100 mg Tablet 100 mg PO DAILY Qty: 30 0RF cephalexin 250 mg capsule 250 mg PO QID 7 Days Qty: 28 0RF Referrals: Lucian Mendes MD [Physician] - (History of liver cirrhosis. CT scan recommends MRI follow-up due to a lesion on the liver)
--- NOTE | 2023-09-27 11:55 | ECG_ITS ---
Test Reason : SOB Blood Pressure : / mmHG Vent. Rate : 091 BPM Atrial Rate : 091 BPM P-R Int : 148 ms QRS Dur : 076 ms QT Int : 346 ms P-R-T Axes : 051 021 020 degrees QTc Int : 425 ms Normal sinus rhythm Normal ECG When compared with ECG of 23-OCT-2022 16:42, No significant change was found Referred By: Krystal Gramajo Electronically Signed By:NIKI GUTIÉRREZ MD
[2023-09-27 12:38] LABS: Basophils Absolute Auto 0.1 X10*3/uL (0.0-0.2); Basophils Percent Auto 1.1 % (0-2); Eosinophils Absolute Auto 0.1 X10*3/uL (0.0-0.4); Eosinophils Percent Auto 1.6 % (0-4); Hematocrit 38.9 % (42.0-52.0); Hemoglobin 13.6 g/dl (14.0-18.0); Imm Gran Abs Auto 0.02 X10*3/uL (0.00-0.03); Imm Gran Pct Auto 0.4 % (0.0-0.4); Lymphocytes Absolute Auto 0.5 X10*3/uL (1.2-4.9); Lymphocytes Percent Auto 8.4 % (20-40); MANUAL DIFF FLAG SCAN; Mean Corpuscular Volume 102.9 fL (80.0-98.0); Mean Platelet Volume 10.2 fL (9.4-12.4); Monocytes Absolute Auto 1.1 X10*3/uL (0.1-1.2); Monocytes Percent Auto 20.3 % (2-11); Neutrophils Absolute Auto 3.7 x10*3/uL (2.0-8.3); Neutrophils Percent Auto 68.2 % (45-73); Platelet Count 222 X10*3/uL (160-400); Red Blood Count 3.78 X10*6/uL (4.60-5.80); Red Cell Distribution Width 18.7 % (11.0-16.0); SCAN SMEAR FLAG 1; White Blood Count 5.5 X10*3/uL (4.8-10.8)
[2023-09-27 12:43] LABS: INTERNATIONAL NORM RATIO 1.1 (0.9-1.1); Prothrombin Time 13.6 SEC (11.1-13.3)
[2023-09-27 12:46] LABS: Partial Thromboplastin Time 34.3 SEC (26.0-36.4)
[2023-09-27 12:51] LABS: Ammonia 52 umol/L (13-55)
[2023-09-27 12:52] LABS: Alanine Aminotransferase 153 U/L (0-40); Albumin Level 3.5 g/dL (3.5-5.0); Alkaline Phosphatase 155 U/L (39-117); Anion Gap 14 (12-20); Aspartate Amino Transferase 194 U/L (5-37); Bilirubin Total 7.4 mg/dL (0.0-1.0); Blood Urea Nitrogen 4 mg/dL (9-16); Calcium 9.8 mg/dL (8.4-10.2); Carbon Dioxide 25 mmol/L (22-29); Chloride 101 mmol/L (96-108); Creatinine Clr Calc Pharmacy 156.2; Estimated Glomerular Filt Rate > 60; Glucose Random 109 mg/dL (60-115); Lipase 107 U/L (8-78); Magnesium 1.7 mg/dL (1.6-2.6); Potassium 3.5 mmol/L (3.3-5.1); Sodium 136 mmol/L (135-145); Total Protein 6.9 g/dL (6.5-8.0)
[2023-09-27 12:59] LABS: Troponin-I High Sensitivity 3.1 ng/L (<3.5-35.0)
[2023-09-27 13:02] LABS: SLIDE REVIEW VERIFIED
[2023-09-27 19:05] VITALS: BP 114/66; PULSE 86; RESP 17; TEMP 36.9; O2SAT 96
[2023-09-27] MEDS: 0.9 % Sodium Chloride 1,000 ML 999 ML IV (19:35)
[2023-09-27] MEDS: ondansetron HCL 4 MG/2 ML VIAL IVPUSH (19:38)
[2023-09-27] MEDS: Morphine Sulfate 4 MG/ML CARTRIDGE IVPUSH (19:38)
[2023-09-27] MEDS: iohexoL 350 MG/ML 100 ML INFUS..BTL 85 ML IV (20:08)
== END 2023-09-27 22:41 | disposition home or self-care (01) ==
PROVIDERS: Physician Assistant Medical; Emergency Provider Internal Medicine
DX: K76.9 Liver disease, unspecified (principal); R74.01 Elevation of levels of liver transaminase levels; R10.11 Right upper quadrant pain; I10 Essential (primary) hypertension
CPT/HCPCS: 36415; 71046; 74177; 76705; 80048; 80076; 82140; 83690; 83735; 84484; 85025; 85610; 85730; 93005; 96361; 96374; 96375; 99284; 99285; J2270; J2405; Q9967

== ENCOUNTER → 2023-09-27 11:55 | Outpatient (BNV) | payer OTHER, SELFPAY | PROVIDERS: Emergency Provider Internal Medicine; Visit Provider Internal Medicine Cardiovascular Disease | DX: R06.02 Shortness of breath (principal) | CPT/HCPCS: 93010 ==

== ENCOUNTER 2023-10-21 08:08 | Outpatient (REF) | payer OTHER, SELFPAY ==
--- NOTE | ~2023-10-21 | MR_ITS ---
EXAMINATION: MR ABDOMEN WITHOUT AND WITH CONTRAST CLINICAL INFORMATION: Subcapsular left hepatic lobe segment IVb hypodense lesion COMPARISON: CT scan of abdomen and pelvis on 09/27/2023 TECHNIQUE: Examination was performed in a high field strength MRI scanner. Multiplanar multiphasic imaging of the abdomen was performed without IV contrast enhancement. Multiphasic Axial T1 weighted fat suppressed images of the upper abdomen were obtained after IV injection of 10 mL Gadavist. Coronal T1 weighted fat-suppressed images of the abdomen were obtained following the dynamic axial series. FINDINGS: LIVER: The liver is enlarged, measuring 20.6 cm in vertical length (25.[address] scan). The calculated hepatic fat percentage is 17.6%, compatible with moderate hepatic steatosis. HEPATOBILIARY: Gallbladder is normal without filling defects. Common bile duct is not dilated. PANCREAS: No focal pancreatic lesion with abnormal signal can be seen. SPLEEN: Spleen is normal in size without focal lesion. ADRENAL: Bilateral adrenal glands are normal in shape and size. KIDNEYS: Bilateral kidneys are normal in size without focal lesion. Moderate L2-L3 posterior disc protrusion, mild L4-L5 and L5-S1 posterior disc protrusions are seen. Small umbilical hernia containing mesenteric fat is present. MR/MR abdomen wo/w con IMPRESSION: 1. Persistent Hepatomegaly and moderate hepatic steatosis. 2. No focal hepatic lesion with abnormal signal or enhancement could be seen including the region at anterior lateral left hepatic lobe segment IVb. Findings on CT scan most likely represents regional variation in hepatic steatosis. 3. No focal pancreatic lesion can be seen.
[2023-10-21] MEDS: gadobutroL 10 ML VIAL IVPUSH (08:56)
== END 2023-10-21 08:09 | disposition home or self-care (01) ==
LOC: HO.MRI 08:08
PROVIDERS: Visit Provider Internal Medicine Gastroenterology
DX: K76.9 Liver disease, unspecified (principal)
CPT/HCPCS: 74183; A9585

== ENCOUNTER 2024-01-09 18:53 | Emergency (ER) | payer OTHER, SELFPAY ==
[2024-01-09 18:56] VITALS: BP 138/101; PULSE 112; RESP 20; TEMP 36.9; O2SAT 95; BMI 30.1
--- NOTE | 2024-01-09 19:11 | ED.GENADULT ---
HPI - General Adult General Chief complaint: Abdominal Pain Stated complaint: Alcohol/Liver Pain Time Seen by Provider: 01/09/24 21:47 Source: patient Mode of arrival: ambulatory Limitations: no limitations History of Present Illness HPI narrative: Patient comes to the emergency room complaining of chronic right upper quadrant pain for months and alcohol intoxication seeking detox. Patient states that he has had constant pain for months. No new changes. Patient denies nausea vomiting or diarrhea, denies abdominal distension. Patient denies any falls or trauma. Related Data Home Medications ?Medication ?Instructions ?Recorded ?Confirmed albuterol sulfate 90 mcg/actuation 2 puff inhalation Q4-6H PRN 10/23/22 01/09/24 aerosol inhaler (ProAir HFA) Shortness Of Breath amlodipine 5 mg tablet 5 mg PO DAILY 10/23/22 01/09/24 magnesium 250 mg tablet 250 mg PO DAILY 10/23/22 01/09/24 multivitamin 1 tab PO DAILY 10/23/22 01/09/24 Previous Rx's ?Medication ?Instructions ?Recorded folic acid 1 mg tablet 1 mg PO DAILY #30 tabs 10/28/22 omeprazole 40 mg capsule,delayed 40 mg PO BID@0630,1630 #60 caps 10/28/22 release thiamine mononitrate (vit B1) 100 100 mg PO DAILY #30 tabs 10/28/22 mg tablet nitrofurantoin 100 mg PO Q12H 7 days #14 caps 01/10/24 monohydrate/macrocrystals 100 mg capsule (Macrobid) Allergies Allergy/AdvReac Type Severity Reaction Status Date / Time Seasonal Allergies Allergy Mild Sneezing Verified 01/09/24 19:00 pet dander Allergy Mild Unknown Uncoded 05/27/23 09:14 Review of Systems Review of Systems: Constitutional : No Weight loss, No Fever, No Chills, No Night Sweats, No Fatigue, No Malaise ENT/Mouth : No Hearing loss, No Ear Pain, No Nasal Congestion, No Sinus Pain, No Hoarseness, No sore throat, No Rhinorrhea, No Swallowing Difficulty Eyes: No Eye Pain, No Swelling, No Redness, No Foreign Body, No Discharge, No Vision Changes Cardiovascular : No Chest Pain, No SOB, No Dyspnea on Exertion, No Orthopnea, No Edema, No Palpitations Respiratory : No Cough, No Sputum, No Wheezing, No Smoke Exposure, No Dyspnea Gastrointestinal : No Nausea, No Vomiting, No Diarrhea, No Constipation, complaining of chronic abdominal pain Genitourinary : no irregular bleeding, No Dysuria, No Urinary Frequency, No Hematuria, No Urinary Incontinence, No Urgency, No Flank Pain, No Urinary Flow Changes, No Hesitancy Musculoskeletal : No joint pain, No Myalgias, No Joint Swelling Skin : No Skin Lesions, No rash Neuro : No Weakness, No Numbness, No Paresthesias, No Loss of Consciousness, No Dizziness, No Headache Psych : No Anxiety/Panic, No Depression, No SI/HI/AH/VH, admits to alcohol abuse, requesting detox Heme/Lymph: No Bruising, No Bleeding,No Lymphadenopathy Endocrine : No Polyuria, No Polydipsia, No Temperature Intolerance [facility] Past Medical History Medical History COPD (chronic obstructive pulmonary disease) MOUNIKA (obstructive sleep apnea) Alcohol use disorder Alcohol abuse HTN (hypertension) Asthma Surgical History No pertinent past surgical history Social History Social History Household Members: Family Housing: House Do you presently have visiting nurse or other home services: No Alcohol intake: current Alcohol intake frequency: 3 or more drinks per day Alcohol type: hard liquor Patient Tobacco Use Status: Former Tobacco user Quit Date: decades ago Smoked in Last 30 Days: No Use of substances other than those prescribed or required for medical reasons: Yes Substance Use Type: Marijuana Substance Use Frequency: Daily Advance Directives: Yes Advance Directives on File: Yes Advance Directives Date on File: 10/23/22 Do you have a plan to hurt others: No Plan service: No Current occupational status: employed Physical Exam ED Vital Signs: Vital Signs - 24 hr 01/09/24 18:56 01/09/24 22:10 01/10/24 00:06 Temperature 98.5 F 98.4 F 98.4 F Pulse Rate 112 H 100 107 H Respiratory Rate 20 18 16 Blood Pressure 138/101 H 154/93 H 152/98 H Pulse Oximetry 95 96 95 Oxygen Delivery Method Room Air Room Air Room Air 01/10/24 06:11 01/10/24 09:55 Temperature 98.0 F 98.4 F Pulse Rate 99 110 H Respiratory Rate 18 18 Blood Pressure 130/87 125/76 Pulse Oximetry 93 93 Oxygen Delivery Method Room Air Room Air BMI result Body Mass Index 30.1 Const Other: Appearance: Alert. Oriented X3. Seems a bit anxious Eyes: Pupils equal, round and reactive to light. ENT: Pharynx normal. Neck: Normal inspection. Neck supple. No lymph nodes noted. No crepitus CVS: Normal heart rate and rhythm. Pulses normal. Normal S1 and S2 Respiratory: No respiratory distress. Breath sounds normal. No Wheezing. No rales Abdomen: Soft and nontender. No rigidity. No distention. No obvious ascites, no rebound or guarding Skin: Skin warm and dry. Normal skin color. Normal skin turgor. Extremities: No lower extremity edema. No Lacerations. No Rash Neuro: Oriented X 3. No motor deficit. No sensory deficit. Moving all extremities. No slurred speech. CN 2 through 12 grossly intact Psych: calm, cooperative, tearful Course Course Course Narrative: RME performed by Kat Matos PA-C. Patient is a 43 year old assigned male at presenting to the emergency department with RUQ abdominal pain over the last few days. Patient states that he drinks regularly and has a history of pancreatitis. Detailed physical exam and review of systems are deferred to the program clinician. Labs ordered. Patient placed back in the waiting room pending room availability and results. Reevaluation(s) Reevaluation #1: Continue physician observation, no acute events overnight, re-evaluation by the care team this morning. Time: 08:21 Reevaluation #2: Patient evaluated by recovery team and unfortunately he does not have insurance currently to cover detox, patient was encouraged to obtain [employer] insurance, he does have mild pancreatitis but is tolerating oral intake and is otherwise discharged home. CIWA-1. Time: 11:44 Medications Administered Generic Name Dose Route Start Last Admin Trade Name Freq PRN Reason Stop Dose Admin Cefuroxime Axetil 250 mg 01/10/24 09:00 01/10/24 09:50 Cefuroxime Axetil 250 Mg Tablet PO 250 mg BID YUMIKO Administration Discontinued Medications Generic Name Dose Route Start Last Admin Trade Name Freq PRN Reason Stop Dose Admin Cefuroxime Axetil 250 mg 01/10/24 00:15 01/10/24 00:23 Cefuroxime Axetil 250 Mg Tablet PO 01/10/24 00:16 250 mg ONCE ONE Administration Lorazepam 2 mg 01/09/24 23:40 01/10/24 00:10 Lorazepam 1 Mg Tablet PO 01/09/24 23:41 2 mg ONCE ONE Administration Lorazepam 2 mg 01/10/24 06:06 01/10/24 06:10 Lorazepam 1 Mg Tablet PO 01/10/24 06:07 2 mg ONCE ONE Administration Oxycodone HCl 5 mg 01/10/24 01:12 01/10/24 01:15 Oxycodone Hcl Immed Release 5 Mg Tablet PO 01/10/24 01:13 5 mg ONCE ONE Administration Medical Decision Making Medical Decision Making MDM Narrative: -my interpretation of labs: Hematology shows a hemoglobin, hematocrit and white blood cell count at baseline, patient's platelets today are lower than usual, 48, however patient known to heavily drink alcohol daily. Chemistry at baseline, LFTs look better than his labs from September of 2023, no epigastric pain, lipase 98, chronically elevated lipase. Patient's urinalysis positive for UTI, given cefuroxime p.o. -I reviewed patient's previous imaging studies, patient had an MRI of the abdomen done approximately 2 months ago, showing persistent hepatomegaly and hepatic steatosis with no focal lesions -patient crying, states he wants detox, patient's current alcohol level elevated at 300. -plan: Metabolize to freedom and care team consult. -patient denies SI or HI, sections of not indicated Differential Diagnosis Differential Diagnoses: The differential diagnosis associated with the presentation includes (Alcohol abuse, alcohol dependence, anxiety, depression) Admission/Observation Consideration of admission/observation: Escalation of care including admission/observation considered (Patient waiting for the care team to be seen and determine disposition) Lab Data MDM Lab Attestation statement: I reviewed the patient's lab results. 01/09/24 19:34 01/09/24 19:34 Labs: Lab Results 01/09/24 01/09/24 Range/Units 19:34 23:30 WBC 6.1 (4.8-10.8) X10*3/uL RBC 4.59 L D (4.60-5.80) X10*6/uL Hgb 15.6 (14.0-18.0) g/dl Hct 43.9 (42.0-52.0) % MCV 95.6 (80.0-98.0) fL MCH 34.0 H (27.0-33.0) pg MCHC 35.5 (31.0-36.0) g/dl RDW 13.0 (11.0-16.0) % Plt Count 48 L D (160-400) X10*3/uL MPV 10.2 (9.4-12.4) fL Immature Gran % (Auto) 0.3 (0.0-0.4) % Neut % (Auto) 67.2 (45-73) % Lymph % (Auto) 14.5 L (20-40) % Williams % (Auto) 16.4 H (2-11) % Eos % (Auto) 0.3 (0-4) % Baso % (Auto) 1.3 (0-2) % Lymph # (Auto) 0.9 L (1.2-4.9) X10*3/uL Williams # (Auto) 1.0 (0.1-1.2) X10*3/uL Eos # (Auto) 0.0 (0.0-0.4) X10*3/uL Baso # (Auto) 0.1 (0.0-0.2) X10*3/uL Abs Immat Gran (auto) 0.02 (0.00-0.03) X10*3/uL Absolute Neuts (auto) 4.1 (2.0-8.3) x10*3/uL Absolute Nucleated RBC 0.000 (0.0-0.012) X10*3/uL Nucleated RBC % (auto) 0.0 (0.0-0.2) /100WBC Smear Tech's Comments VERIFIED Sodium 137 (135-145) mmol/L Potassium 3.7 (3.3-5.1) mmol/L Chloride 91 L (96-108) mmol/L Carbon Dioxide 25 (22-29) mmol/L Anion Gap 25 H (12-20) BUN 10 (9-16) mg/dL Creatinine 0.89 (0.5-1.4) mg/dL Estim Creat Clear Calc 123.9 Estimated GFR > 60 Random Glucose 104 (60-115) mg/dL Calcium 9.2 D (8.4-10.2) mg/dL Magnesium 1.7 (1.6-2.6) mg/dL Total Bilirubin 3.8 H (0.0-1.0) mg/dL Direct Bilirubin 2.8 H (0.0-0.5) mg/dL AST 330 H (5-37) U/L ALT 174 H (0-40) U/L Alkaline Phosphatase 125 H (39-117) U/L Total Protein 8.6 H (6.5-8.0) g/dL Albumin 4.7 (3.5-5.0) g/dL Lipase 98 H (8-78) U/L Urine Color Dark Yellow Urine Appearance Cloudy Urine pH 6.5 (5.0-9.0) Ur Specific [place] 1.020 (1.005-1.025) Urine Protein 100 (2+) H (Neg-Trace) mg/dL Urine Glucose (UA) Negative (Negative) mg/dL Urine Ketones 15 (Negative) mg/dL Urine Blood Small (1+) H (Negative) Urine Nitrite Positive H (Negative) Ur Leukocyte Esterase Moderate (2+) H (Negative) Urine RBC 3-5 H (0-2) /HPF Urine WBC 6-10 (0-5) /HPF Ur Squamous Epith Cells 6-10 (0-2) /HPF Urine Bacteria Trace (None Seen) Hyaline Casts 6-10 (0-2) /LPF Urine Opiates Screen Not Detected (Not Detect) Ur Buprenorphine Scrn Not Detected (Not Detect) ng/mL Ur Oxycodone Screen Not Detected (Not Detect) ng/mL Urine Methadone Screen Not Detected (Not Detect) ng/mL Urine Fentanyl Screen Not Detected (Not Detect) Ur Barbiturates Screen Not Detected (Not Detect) Ur Phencyclidine Scrn Not Detected (Not Detect) Ur Amphetamines Screen Not Detected (Not Detect) U Benzodiazepines Scrn Not Detected (Not Detect) Urine Cocaine Screen Not Detected (Not Detect) U Marijuana (THC) Screen POSITIVE H (Not Detect) Ethyl Alcohol 300 H* mg/dL External Record Review External record reviewed: Prior outpatient radiology Chronic Conditions Patient?s care impacted by: Other (Alcohol dependence) Critical Care Time Critical Care Time Critical Care Time: Yes Total Critical Care Time: 35 Attestation: I have personally provided critical care time. Time includes review of lab data, radiology results, discussion with consultants, and monitoring for potential decompensation. Intervention performed as documented. Discharge Plan Discharge Clinical Impression: Alcohol abuse, Acute UTI, Pancreatitis Patient Disposition: Still a Patient Instructions: Pancreatitis (ED), Urinary Tract Infection in Men (ED), Alcohol Use Disorder (ED) Additional Instructions: 1. Please complete the entire course of antibiotics as ordered for your urinary tract infection. 2. I highly encourage you to seek out [employer] insurance coverage to cover your medical problems. 3. Please follow-up with your primary care doctor on Friday. Return to the ER for any worsening symptoms. Prescriptions: New nitrofurantoin monohyd/m-cryst [Macrobid] 100 mg capsule 100 mg PO Q12H 7 Days Qty: 14 0RF Rx Instructions: must administer with a meal/food No Action multivitamin Tablet 1 tab PO DAILY amlodipine 5 mg Tablet 5 mg PO DAILY magnesium 250 mg Tablet 250 mg PO DAILY albuterol sulfate [ProAir HFA] 90 mcg/actuation Hfa Aerosol Inhaler 2 puff INHALATION Q4-6H PRN (Reason: Shortness Of Breath) omeprazole 40 mg Capsule,Delayed Release(Dr/Ec) 40 mg PO BID@0630,1630 Qty: 60 0RF folic acid 1 mg Tablet 1 mg PO DAILY Qty: 30 0RF thiamine mononitrate (vit B1) 100 mg Tablet 100 mg PO DAILY Qty: 30 0RF Print Language: Moldovan
[2024-01-09 19:52] LABS: Ethanol 300 mg/dL
[2024-01-09 20:16] LABS: Basophils Absolute Auto 0.1 X10*3/uL (0.0-0.2); Basophils Percent Auto 1.3 % (0-2); Eosinophils Percent Auto 0.3 % (0-4); Hematocrit 43.9 % (42.0-52.0); Hemoglobin 15.6 g/dl (14.0-18.0); Imm Gran Abs Auto 0.02 X10*3/uL (0.00-0.03); Imm Gran Pct Auto 0.3 % (0.0-0.4); Lymphocytes Absolute Auto 0.9 X10*3/uL (1.2-4.9); Lymphocytes Percent Auto 14.5 % (20-40); Mean Corpuscular HGB Conc 35.5 g/dl (31.0-36.0); Mean Corpuscular Volume 95.6 fL (80.0-98.0); Mean Platelet Volume 10.2 fL (9.4-12.4); Monocytes Percent Auto 16.4 % (2-11); Neutrophils Absolute Auto 4.1 x10*3/uL (2.0-8.3); Neutrophils Percent Auto 67.2 % (45-73); Red Blood Count 4.59 X10*6/uL (4.60-5.80); White Blood Count 6.1 X10*3/uL (4.8-10.8)
[2024-01-09 20:22] LABS: Anion Gap 25 (12-20)
[2024-01-09 20:23] LABS: Alanine Aminotransferase 174 U/L (0-40); Albumin Level 4.7 g/dL (3.5-5.0); Alkaline Phosphatase 125 U/L (39-117); Aspartate Amino Transferase 330 U/L (5-37); Bilirubin Direct 2.8 mg/dL (0.0-0.5); Bilirubin Total 3.8 mg/dL (0.0-1.0); Blood Urea Nitrogen 10 mg/dL (9-16); Calcium 9.2 mg/dL (8.4-10.2); Carbon Dioxide 25 mmol/L (22-29); Chloride 91 mmol/L (96-108); Creatinine Clr Calc Pharmacy 123.9; Estimated Glomerular Filt Rate > 60; Glucose Random 104 mg/dL (60-115); Lipase 98 U/L (8-78); Magnesium 1.7 mg/dL (1.6-2.6); Potassium 3.7 mmol/L (3.3-5.1); Sodium 137 mmol/L (135-145); Total Protein 8.6 g/dL (6.5-8.0)
[2024-01-09 20:33] LABS: MANUAL DIFF FLAG SCAN; Platelet Count 48 X10*3/uL (160-400)
[2024-01-09 20:34] LABS: SLIDE REVIEW VERIFIED
[2024-01-09 22:10] VITALS: BP 154/93; PULSE 100; RESP 18; TEMP 36.9; O2SAT 96
--- NOTE | 2024-01-09 22:14 | PC.NURSE ---
this rn assumed care of pt, pt a&ox4, respiration even and unlabored. pt reporting onset of left upper quadrant pain x1 days. pt reports he has n/f/d daily but denies any blood in stool. pt reports chronic ETOH use daily, reports he had a pint of vodka prior to arrival. pt reports hx of etoh withdrawl but denies seizures. pt reports coming to the ed requesting detox, reports he would like help to stop drinking. pt denies si/hi. CIWA=0
--- NOTE | 2024-01-09 23:35 | MHC.EDTECH ---
Pt brought over from [facility] into [facility] and changed over with security. Belongings placed in POD Locker #7.
[2024-01-09 23:37] LABS: Appearance Urine Cloudy; Color Urine Dark Yellow; Glucose Urine UA Negative (Negative); Leukocyte Esterase Urine Moderate (2+) (Negative); Nitrite Urine Positive (Negative); PH 6.5 (5.0-9.0); UMIC TRIGGER UACC YES; Urine Blood Small (1+) (Negative); Urine Ketones 15 mg/dL (Negative); Urine Protein 100 (2+) mg/dL (Neg-Trace)
[2024-01-09 23:46] LABS: Amphetamine Screen Urine Not Detected (Not Detect); Barbiturates, Urine Not Detected (Not Detect); Benzodiazepines Screen Urine Not Detected (Not Detect); Buprenorphine Scr Not Detected (Not Detect); Cannabinoid Screen Urine POSITIVE (Not Detect); Cocaine Screen Urine Not Detected (Not Detect); Fentanyl, urine Not Detected (Not Detect); Methadone Screen, Urine Not Detected (Not Detect); Opiate Screen Urine Not Detected (Not Detect); Oxycodone Screen Urine Not Detected (Not Detect); Phencyclidine Screen Urine Not Detected (Not Detect)
[2024-01-10] LABS: Bacteria Urine Trace (None Seen); UACC Culture Trigger YES
[2024-01-10 00:06] VITALS: BP 152/98; PULSE 107; RESP 16; TEMP 36.9; O2SAT 95
[2024-01-10] MEDS: LORazepam 1 MG TABLET 2 MG PO ×2 (00:10→06:10)
[2024-01-10] MEDS: cefuroxime axetiL 250 MG TABLET PO ×2 (00:23→09:50)
--- NOTE | 2024-01-10 00:23 | MHC.CARE ---
Pt will be referred to Recovery in the morning.
[2024-01-10] MEDS: oxyCODONE HCl Immed Release 5 MG TABLET PO (01:15)
--- NOTE | 2024-01-10 02:13 | PC.NURSE ---
Patient is currently in bed appears sleeping, no distress observed/reported at this time, patient reported abdominal pain 02/22, provider notified/ordered Oxy 5 mg PO once/administered as ordered at 0115 with + effect, patient requested comfort measure for alcohol withdrawal/asymptomatic at this time/provider notified/ordered Ativan 2 mg po/administered at 0010 with + effect. Patient is + for UTI Ceftin 250 mg po BID ordered/first dose administered at 0023, care consult ordered/patient will be seen in the morning for detox help, will continue to monitor
[2024-01-10 06:11] VITALS: BP 130/87; PULSE 99; RESP 18; TEMP 36.7; O2SAT 93
--- NOTE | 2024-01-10 06:41 | PC.NURSE ---
CIWA at 0600 was 13, provider notified/ordered Ativan 2 mg/administered as ordered/pending effect, will continue to monitor
--- NOTE | 2024-01-10 08:18 | MHC.RECOVRN ---
Addendum entered by Rosangela Magdaleno 01/10/24 09:08: Pt currently being reviewed by [facility]. Notified pt. Pt reports alcohol use, 2 pints vodka daily since 10/30 when he was furloughed from his job. Pt reports multiple hospital admissions for alcohol withdrawal, denies ATS admissions. Pt denies questions or concerns for t/w. Original Note: Pts referral sent to [facility].
[2024-01-10 09:55] VITALS: BP 125/76; PULSE 110; RESP 18; TEMP 36.9; O2SAT 93
[2024-01-10 11:58] VITALS: BP 125/76; PULSE 110; RESP 18; TEMP 36.9; O2SAT 93
== END 2024-01-10 12:00 | disposition still patient (30) ==
PROVIDERS: Emergency Provider Emergency Medicine
DX: F10.120 Alcohol abuse with intoxication, uncomplicated (principal); Y90.8 Blood alcohol level of 240 mg/100 ml or more; N39.0 Urinary tract infection, site not specified; K85.90 Acute pancreatitis without necrosis or infection, unspecified; R10.11 Right upper quadrant pain; I10 Essential (primary) hypertension; J45.909 Unspecified asthma, uncomplicated; Z87.891 Personal history of nicotine dependence; Z79.899 Other long term (current) drug therapy
CPT/HCPCS: 36415; 80048; 80076; 80307; 81001; 83690; 83735; 85025; 87086; 99285